=== PATIENT | male | born 1960 | race Two or more races ===

== ENCOUNTER → 2021-10-16 09:33 | Outpatient (BNVA) | payer MEDICARE, MEDICAID, SELFPAY | PROVIDERS: PCP Internal Medicine; Visit Provider Nurse Practitioner Family | DX: G47.00 Insomnia, unspecified (principal); F41.9 Anxiety disorder, unspecified; F32.A Depression, unspecified; H02.402 Unspecified ptosis of left eyelid | CPT/HCPCS: 99212 ==

== ENCOUNTER 2024-08-05 10:46 | Outpatient (AMB) | payer MEDICARE, SELFPAY ==
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
[2024-08-05 10:55] VITALS: BP 150/96; PULSE 72; O2SAT 98; BMI 37.1
--- OUTSIDE RECORDS SUMMARY | 2024-08-05 12:35 | XMS_ITS ---
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 I had a long discussion with him and his about the findings from his most recent imaging and the pathology from his biopsy as discussed in the HPI. I also talked about oligometastatic disease and the diagnosis, and treatment of this. Basically, there is a survival advantage to resection of oligometastatic disease from colon cancer to the lung. As such, I discussed with them a navigational bronchoscopy with dye marking, da Prem left apical wedge resection and lymph node dissection for therapeutic purposes. The risks, benefits, and alternatives of this were discussed in detail which she seemed understand and agreed to proceed. All questions were answered. He will need pulmonary function testing prior to operation. 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 Splenic cyst 05/14/2022 Overview (03/24/2024): Pt with possible splenic cyst on 05/09/22. Incidental finding. Controlled type 2 diabetes m ellitus without complication, without long-term current use of insulin 12/09/2020 Chronic pain of both knees 08/24/2020 Constipation 08/24/2020 Housing situation unstable 06/15/2020 Anxiety 02/16/2020 Panic 02/16/2020 Pulmonary nodules 02/16/2020 Overview (03/24/2024): Status post wedge resection, 03/30/2020, follows with Dr. Austin Last Assessment & Plan: Patient has 2 subcentimeter pulmonary nodules in the left upper lobe. There were negative on the PET scan. Continue following in the lung cancer screening clinic. Insomnia 04/13/2019 Gastroesophageal reflux disease without esophagi tis 10/13/2018 Stage 3 severe COPD by GOLD classification 10/13 Overview (03/24/2024): Last Assessment & Plan: Mr. Mendoza has stage II COPD as per his latest pulmonary function test back in 2019 with an FEV1 53% predicted. He has been stable using triple therapy with Trelegy. I will continue with this medication. He ran out from [employer] a couple of days ago and he has wheezing today. I also will renew his nebulizer medications and supplies. I advised him to quit smoking but right now he says that he is to stress and is very difficult. He knows about the risks of continued smoking. I will do a new pulmonary function testing his next appointment in 6 months. Cardiomyopathy 07/28/2018 Chronic low back pain 03/07/2017 Depression 03/02/2016 Obesity 03/02/2016 Hyperlipidemia 07/11/2012 Psoriasis 07/11/2012 Overview (03/24/2024): Been getting treated for 5 years with creams and shampoos, follows with [facility] Current Oncology Plans No current plan information found. Past Plans No past plan information found. Radiation Treatments * Treatment Site Started On Last Treated On Elapsed Days Fractions Complete Last Fraction Dose Given/Prescribed Total Dose Given/Prescribed Technique MICHAEL SBRT 05/11/20 24 05/13/20 24 2 3 of 3 1,800 cGy / 1,800 cGy 5,400 cGy / 5,400 cGy SBRT VMAT
--- OUTSIDE RECORDS SUMMARY | 2024-08-05 12:35 | XMS_ITS | Encounter Summary ---
Author Organization [facility] Address [address] [place] [address] Care Team Providers Care Ripening Room Hand Name Role Phone Diana Oseguera MD Primary Care Provider [phone] Encounter Details Date Type Department Care Team (Late st Contact Info) Description 03/24/2024 10:34 AM EDT Hospital Encounter TH HISTORIC ENCOUNTERS EASTERN CONVERSION ONLY Yvonne Bautista, DO [address] [place] [address] Social History Tobacco Use Types Packs/Day Years Used Date Smoking Tobacco: Every Day Cigarettes Smokeless Tobacco: Never Comments:1 PPD Alcohol Use Standard Drinks/Week Comments No 0 (1 standard drink = 0.6 oz pur e alcohol) Sex and Gender Information Value Date Recorded Sex Assigned at Male 07/10/2024 1:20 PM EST Legal Sex Male 4:35 AM EST Gender Identity Male 07/10/2024 1:20 PM EST Sexual Orientation Straight 07/10/2024 1: 20 PM EST documented as of this encounter Last Filed [...] 12:25 PM Encounter Date: 03/24/2024 Status: Addendum Underwriting Account Representative: Yvonne Bautista DO (Physician) Related Notes: Original [...] to 1.5 packs per day 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 Sign: Yvonne Bautista DO Hematology/Oncology [facility] [phone] CC: Dr Beau Oseguera, MD Diana Encounter involves review of pathology, discussion with outside physician, documentation in medicalrecord, ordering additional testing, care of patient in longitudinal fashion, documented in this encounter Plan of Treatment Upcoming Encounters Date Type Department Care Team (Late st Contact Info) Description 08/14/2024 1:20 PM EST Office Visit Gastroenterology - [facility] [address] [facility] [address] [place] [phone] aRmu Carson PA [address] [facility] [address] [place] [address] 09/23/2024 9:30 AM EDT Appointment [facility] CT Scan [address] [place] [phone] 09/30/2024 1:00 PM EDT Appointment [facility] Radiation Oncology [address] [facility] 2nd [place] [phone] Neena Irwin NP [address] [place] [address] [address] [place]ije[place] [phone] documented as of this encounter Procedures Procedure [...] Diagnoses Not on filedocumented in this encounter Care Teams Ripening Room Hand Relationship Specialty Start Date End Date Diana Oseguera MD [address] [place] [address] PCP - General Internal Medicine 12/27/14 documented as of this encounter
--- OUTSIDE RECORDS SUMMARY | 2024-08-05 12:35 | XMS_ITS | Encounter Summary ---
Author Organization [facility] Address [address] [place] [address] Care Team Providers Care Mold Preparer Name Role Phone Diana Oseguera MD Primary Care Provider [phone] Encounter Details Date Type Department Care Team Description 01/24/2024 Social Work [facility] Oncology Services [address] [place] [address] Casimiro Mack, [facility] Social History Tobacco Use Types Packs/Day Years Used Date Smoking Tobacco: Former Smokeless Tobacco: Never Alcohol Use Standard Drinks/Week Comments No 0 (1 standard drink = 0.6 oz pur e alcohol) Sex and Gender Information Value Date Recorded Sex Assigned at Male 08/27/2022 2:15 PM EST Gender Identity Not on file Sexual Orientation Not on file Job Start Date Occupation Industry Not on file Not on file Not on file documented as of this encounter Plan of Treatment Not on file documented as of this encounter Visit Diagnoses Not on filedocumented in this encounter Care Teams Mold Preparer Relationship Specialty Start Date End Date Diana Oseguera MD PCP - General Internal Medicine 06/08/16 documented as of this encounter
--- OUTSIDE RECORDS SUMMARY | 2024-08-05 12:35 | XMS_ITS | Encounter Summary ---
Author Organization [facility] Address [address] [place] [address] Care Team Providers Care Assistant Associate Professor Name Role Phone Diana Oseguera MD Primary Care Provider Encounter Details Date Type Department Care Team Description 08/27/2022 Social Work [facility] Oncology Services [address] [place] [address] Casimiro Mack, [facility] Social History Tobacco Use Types Packs/Day Years [...] file Not on file Not on file COVID-19 Exposure Response Date Recorded In the last 10 days, have yo u been in contact with someone who was confirmed or suspected to have Coronavirus/COVID-19? No / Unsure 08/29/2022 11:45 AM EST documented as of this encounter Plan of Treatment Not on file documented as of this encounter Visit Diagnoses Not on filedocumented in this encounter Care Teams Assistant Associate Professor Relationship Specialty Start Date End Date Diana Oseguera MD PCP - General Internal Medicine 06/08/16 documented as of this encounter
--- OUTSIDE RECORDS SUMMARY | 2024-08-05 12:35 | XMS_ITS | Encounter Summary ---
Author Organization [facility] Address [address] [place] [address] Care Team Providers Care Technology Professional Name Role Phone Diana Oseguera MD Primary Care Provider [phone] Encounter Details Date Type Department Care Team Description 08/30/2022 Social Work [facility] Oncology Services [address] [place] [address] Casimiro Mack, [facility] Social History Tobacco Use Types Packs/Day Years [...] on filedocumented in this encounter Care Teams Technology Professional Relationship Specialty Start Date End Date Diana Oseguera MD PCP - General Internal Medicine 06/08/16 documented as of this encounter
--- OUTSIDE RECORDS SUMMARY | 2024-08-05 12:35 | XMS_ITS ---
Author Organization [facility] Address [address] [place] [address] Care Team Providers Care Wine Sales Representative Name Role Phone Diana Oseguera MD Primary Care Provider [phone] Active Problems Problem Noted Date Diagnosed Date Rectosigmoid cancer 08/25/2022 Current Oncology Plans No current plan information found. Past Plans ONCOLOGY TREATMENT Plan Name Start Date Discontinue Date Treatment Medications Discontinue Reason Plan Provider Cycles SFC BCN OP FOLFOX 6 (MODIFIED) - OXALIPLATIN + LEUCOVORIN + FLUOROURACIL (5 HRS) 3 08/29/2023 albuterol (PROVENTIL)dexamethaso ne (DECADRON)dextrose 5 %diphenhydrAMINE (BENADRYL)EPINEPHrinef amotidine (PF) (PEPCID)fluorouracil (5 FU) 46 Hr Chemo infusion- Home Usefluorouracil (ADRUCIL)hydrocortison e (SOLU-CORTEF) IVleucovorin (WELLCOVORIN) infusionmeperidine (DEMEROL) 25 MG/MLoxaliplatin (ELOXATIN) chemo infusionpalonosetron (ALOXI)prochlorperazin e (COMPAZINE)Saline Flush 0.9 %sodium chloride (NS) 0.9 %sodium chloride 0.9% bolus (NS) Therapy Complete Yvonne Bautista N, DO 10 of 12 cycles planned Radiation Treatments * No radiation treatments are documented for this patient in [facility]. Treatments may have been administered in another system.
--- OUTSIDE RECORDS SUMMARY | 2024-08-05 12:35 | XMS_ITS | Encounter Summary ---
Author Organization [facility] Address [address] [place] [address] Care Team Providers Care Pipe Fitter Gas Pipe Name Role Phone Diana Oseguera MD Primary Care Provider Encounter Details Date Type Department Care Team (Late st Contact Info) Description 04/10/2024 Hospital Encounter TH [...] PM EST Office Visit Gastroenterology - [address] [place] [phone] Ramu Carson PA [address] [place] [address] 09/23/2024 9:30 AM EDT Appointment [facility] CT Scan [address] [place] [phone] 09/30/2024 1:00 PM EDT Appointment [facility] Radiation Oncology [address] [phone] Neena Irwin NP [address] [place] [address] [place] [phone] documented as of this encounter Visit Diagnoses Not on filedocumented in this encounter Care Teams Pipe Fitter Gas Pipe Relationship Specialty Start Date End Date Diana Oseguera MD [address] [place] [address] PCP - General Internal Medicine 12/27/14 documented as of this encounter
--- OUTSIDE RECORDS SUMMARY | 2024-08-05 12:35 | XMS_ITS | Encounter Summary ---
Author Organization [facility] Address [address] [place] [address] Care Team Providers Care Av Specialist Name Role Phone Diana Oseguera MD Primary Care Provider [phone] Encounter Details Date Type Department Care Team Description 04/10/2024 Social Work [facility] Oncology Services [address] [place] [address] Casimiro Mack, [facility] Social History Tobacco Use Types Packs/Day Years [...] on filedocumented in this encounter Care Teams Av Specialist Relationship Specialty Start Date End Date Diana Oseguera MD PCP - General Internal Medicine 06/08/16 documented as of this encounter
--- OUTSIDE RECORDS SUMMARY | 2024-08-05 12:35 | XMS_ITS | Encounter Summary ---
Author Organization [facility] Address [address] [place] [address] Care Team Providers Care Cottage Master Name Role Phone Diana Oseguera MD Primary Care Provider [phone] Encounter Details Date Type Department Care Team Description 02/13/2023 Social Work [facility] Oncology Services [address] [place] [address] Casimiro Mack, [facility] Social History Tobacco Use Types Packs/Day Years [...] suspected to have Coronavirus/COVID-19? No / Unsure 02/12/2023 9:33 AM EDT documented as of this encounter Plan of Treatment Not on file documented as of this encounter Visit Diagnoses Not on filedocumented in this encounter Care Teams Cottage Master Relationship Specialty Start Date End Date Diana Oseguera MD PCP - General Internal Medicine 06/08/16 documented as of this encounter
--- OUTSIDE RECORDS SUMMARY | 2024-08-05 12:35 | XMS_ITS | Encounter Summary ---
Author Organization [facility] Address [address] [place] [address] Care Team Providers Care Shoe Lacer Name Role Phone Diana Oseguera MD Primary Care Provider [phone] Encounter Details Date Type Department Care Team (Late Contact Info) Description 03/24/2024 11:00 AM EDT Hospital Encounter TH HISTORIC ENCOUNTERS EASTERN CONVERSION ONLY Yvonne Bautista, DO [address] [place] [address] Social History Tobacco Use Types Packs/Day Years [...] PM EST documented as of this encounter Plan of Treatment Upcoming Encounters Date Type Department Care Team (Late st Contact Info) Description 08/14/2024 1:20 PM EST Office Visit Gastroenterology - [address] [facility] [address] [place] [phone] Ramu Carson PA [address] [facility] [address] [place] [address] 09/23/2024 9:30 AM EDT Appointment [facility] CT Scan [address] [place] [phone] 09/30/2024 1:00 PM EDT Appointment [facility] Radiation Oncology [address] [place] [phone] Neena Irwin NP [address] [place] [address] [place] [phone] documented as of this encounter Visit Diagnoses Not on filedocumented in this encounter Care Teams Shoe Lacer Relationship Specialty Start Date End Date Diana Oseguera MD [address] [place] [address] PCP - General Internal Medicine 12/27/14 documented as of this encounter
--- OUTSIDE RECORDS SUMMARY | 2024-08-05 12:35 | XMS_ITS | Encounter Summary ---
Author Organization [facility] Address [address] [place] [address] Care Team Providers Care Director Global Strategic Publisher Sales Name Role Phone Diana Oseguera MD Primary Care Provider [phone] Encounter Details Date Type Department Care Team Description 03/28/2023 Social Work [facility] Oncology Services [address] [place] [address] Casimiro Mack, [facility] Social History Tobacco Use Types Packs/Day Years [...] suspected to have Coronavirus/COVID-19? No / Unsure 03/05/2023 8:36 AM EDT documented as of this encounter Plan of Treatment Not on file documented as of this encounter Visit Diagnoses Not on filedocumented in this encounter Care Teams Director Global Strategic Publisher Sales Relationship Specialty Start Date End Date Diana Oseguera MD PCP - General Internal Medicine 06/08/16 documented as of this encounter
--- OUTSIDE RECORDS SUMMARY | 2024-08-05 12:35 | XMS_ITS | Clinical Summary ---
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 Active fluticasone-umec lidinium-vilante rol (Trelegy Ellipta) 100-62.5-25 mcg inhaler Inhale 1 Puff into the lungs daily for 90 days. 4 Active ipratropium-albu teroL (DUONEB) 0.5-2.5 mg/3 mL nebulizer solution Inhale 3 mL into the lungs 4 times daily as needed for Other (dyspnea). 4 025 Active betamethasone dipropionate (DIPROSONE) 0.05 % ointment Apply 0.05 Applications topically if needed for rash. 4 Active docusate sodium (COLACE) 100 mg capsule Take 1 capsule (100 mg total) by mouth 1 (one) time each day if needed. 4 Active DULoxetine (CYMBALTA) [address] capsule Take 1 capsule (20 mg total) by mouth 1 (one) time each day. for 30 days 4 Active hydrocortisone 2.5 % cream Apply 1 Application topically if needed for rash. 4 Active loperamide (IMODIUM) 2 mg capsule Take 1 capsule (2 mg total) by mouth every 6 hours. 4 Active nicotine (NICODERM CQ) 21 mg/[address] 1 patch on the skin 1 (one) time each day at the same time. Active sildenafiL (VIAGRA) 100 mg tablet Take 1 tablet (100 mg total) by mouth if needed for erectile dysfunction. 4 Active albuterol HFA (PROAIR HFA ; PROVENTIL HFA ; VENTOLIN HFA) 90 mcg/actuation inhaler Inhale 2 puffs by mouth every 6 hours as needed. Active amitriptyline (ELAVIL) 150 mg tablet Take 1 tablet (150 mg total) by mouth at bedtime. Active simethicone (MYLICON) 80 mg chewable tablet Chew 1 tablet (80 mg total). 4 Active pregabalin (LYRICA) 50 mg capsule Take 1 capsule (50 mg total) by mouth. 4 Active ipratropium-albu teroL (DUONEB) 0.5-2.5 mg/3 mL nebulizer solution Take 3 mL by nebulization every 6 (six) hours. 360 mL 11 4 Active albuterol 2.5 mg /3 mL (0.083 %) nebulizer solutionIndicati ons:Chronic obstructive pulmonary disease, unspecified COPD type (CMS/HCC),COPD exacerbation (CMS/HCC) Take 3 mL (2.5 mg total) by nebulization every 6 (six) hours if needed for wheezing. 360 mL 11 4 025 Active Hospital, Clinic, or Other Facility Administered Medication Ordered Dose Route Frequency Start Date End Date Status predniSONE (DELTASONE) tablet 10 mgIndications:Chronic obstructive pulmonary disease, unspecified COPD type (CMS/HCC) 10 mg oral Daily 06/22/2024 Active Active Problems Problem Noted Date Diagnosed Date [...] Staging:Pathologic: pT2, pN1, cM1 - Signed by Roberto Degroot MD on 04/28/2024 Liver lesion 05/14/2022 [...] with this medication. He ran out from [employer] a couple of days ago and he [...] years with creams and shampoos, follows with [facility] Encounters Date Type Department Care Team Description 07/10/2024 12:29 PM EST - 07/10/2024 7:05 PM EST Emergency [facility] Emergency [address] [place] [address] Rectal bleeding (Primary Dx) Discharge Disposition: Home or Self Care 07/10/2024 Telephone [facility] Hematology Oncology [address] [place] [phone] Yvonne Bautista, DO Rectal Bleeding 06/25/2024 10:55 AM EST - 06/25/2024 11:59 PM EST Hospital Encounter [facility] Radiation Oncology [address] [facility] [address] [place] [phone] Neena Irwin NP 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) Discharge Disposition: Home or Self Care 06/22/2024 9:30 AM EST Office Visit Pulmonolgy - [place] [address] [facility] [address] [place] [phone] Marisol Rock MD Chronic obstructive pulmonary disease, unspecified COPD type (CMS/HCC) (Primary Dx); COPD exacerbation (CMS/HCC); Colon cancer metastasized to lung (CMS/HCC); [facility] [address] [phone] Marisol Rock MD Medication Problem; call back 06/19/2024 Telephone [facility] Radiation Oncology [address] [phone] Carla Eubanks, LAURENCE Cough 06/18/2024 1:30 PM EST Lab Draw Station - [address] [phone] Dyspnea, unspecified type 06/18/2024 12:52 PM EST - 06/18/2024 11:59 PM EST Hospital Encounter [facility] Xray [address] [place] [phone] Dyspnea, unspecified type Discharge Disposition: Home or Self Care [facility] [address] [phone] Marisol Rock MD 05/13/2024 11:15 AM EST - 05/13/2024 11:59 PM EST Hospital Encounter [facility] Radiation Oncology [address] [place] [phone] Roberto Degroot MD Rectosigmoid cancer (CMS/HCC) (Primary Dx); 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 ([facility]/HCC) Discharge Disposition: Home or Self Care 05/13/2024 10:51 AM EST - 05/13/2024 11:59 PM EST Hospital Encounter [facility] Radiation Oncology [address] [place] [phone] Roberto Degroot MD Discharge Disposition: Home or Self Care 05/12/2024 10:48 AM EST - 05/12/2024 11:59 PM EST Hospital Encounter [facility] Radiation Oncology [address] [place] [phone] Bettye Winn MD Discharge Disposition: Home or Self Care 05/11/2024 11:30 AM EST - 05/11/2024 11:59 PM EST Hospital Encounter [facility] Radiation Oncology [address] [place] [phone] Roberto Degroot MD 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); 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) Discharge Disposition: Home or Self Care 05/11/2024 11:15 AM EST - 05/11/2024 11:59 PM EST Hospital Encounter [facility] Radiation Oncology [address] [place] [phone] Roberto Degroot MD 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) Discharge Disposition: Home or Self Care 05/11/2024 10:55 AM EST - 05/11/2024 11:59 PM EST Hospital Encounter [facility] Radiation Oncology [address] [place] [phone] Roberto Degroot MD Rectosigmoid cancer (CMS/HCC) (Primary Dx); 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); 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) Discharge Disposition: Home or Self Care 05/05/2024 10:15 AM EST Office Visit [facility] Hematology Oncology [address] [place] [phone] Yvonne Bautista DO Rectosigmoid cancer (CMS/HCC) (Primary Dx); Chemotherapy-induced neuropathy (CMS/HCC); Tobacco use from Last 3 Months Immunizations Name Administration Dates Next Due Influenza trivalent, with pr eservative (Fluzone; Afluria) 6mo and older 04/12/2011,03/25/2009 PPD Test 03/13/2013 Pfizer SARS-CoV-2 COVID-19, mRNA, LNP-S, preservative free 09/15/2020 Pneumococcal polysaccharide 23 valent (Pneumovax 23) 2yo and older 08/18/2012 Tdap Tetanus diptheria acell ular pertussis (Boostrix; Adacel) 7yo and older 04/12/2011 Surgical History Surgery Date Site/Laterality Comments APPENDECTOMY PROCEDURE: HISTORICAL APPENDECTOMY CIRCUMCISION, NON- PROCEDURE: CIRCUMCISION, NOT OTHER SURGICAL HISTORY PROCEDURE: MN ARTHRD ANT INTERBODY MIN DSC LUMBAR; COMMENT: L4-5 OTHER SURGICAL HISTORY 08/22/2023 PROCEDURE: HISTORY OTHER; COMMENT: closure of loop ileostomy Medical History Medical History Date Comments Psoriasis 07/11/2012 DX:Psoriasis Previous back surgery 07/11/2012 DX:Previou s back surgery COPD (chronic obstructive pu lmonary disease) (CMS/HCC) 07/11/2012 DX:COPD (chronic obstructive pulmonary disease) ([facility]) Historical Medical DX 07/11/2012 DX:Hyperli pidemia LDL goal < 130 GERD (gastroesophageal reflux disease) 4 DX:GERD (gastroesophageal reflux disease) Obesity DX:Obesity Ex-smoker DX:Ex-smoker Anxiety DX:Anxiety Depression DX:Depression Insomnia DX:Insomnia Abnormal screening CT of chest D X:Abnormal screening CT of chest Rectal bleeding DX:Rectal bleedi ng Abdominal pain DX:Abdominal georgiana n Liver lesion DX:Liver lesion Tobacco use DX:Tobacco use Cancer of rectosigmoid (colo n) (CMS/HCC) 07/20/2022 DX:Cancer of rectosigmoid (c olon) ([facility]) Splenic cyst 05/14/2022 DX:Splenic cyst; COMMENT: Pt with possible splenic cyst on 05/09/22. Incidental finding. Constipation 08/24/2020 DX:Constipation Gastroesophageal reflux dise ase without esophagitis 10/13/2018 DX:Gastroesophageal reflux d isease without esophagitis Controlled type 2 diabetes m ellitus without complication, without long-term current use of insulin (CMS/HCC) 12/09/2020 DX:Controlled type 2 diabete s mellitus without complication, without long-term current use of insulin (HCC) Cardiomyopathy (CMS/HCC) 07/28/2018 DX:Card iomyopathy (HCC) Secondary cancer of lung (CMS/HCC) 03/27/2024 DX:Secondary cancer of lung (HCC) Chronic left-sided low back pain without sciatica 03/07/2017 DX:Chronic left-sided low ba ck pain without sciatica Chronic pain of both knees 08/24/2020 DX:Ch ronic pain of both knees Stage 3 severe COPD by GOLD classification (CMS/HCC) 10/13/2018 DX:Stage 3 severe COPD by GO LD classification ([facility]) Family History Medical History Relation Name Comments Heart attack Brother 1 Stroke Brother 2 COPD Mother Relation Name Status Comments Brother 1 Brother 2 Mother Social History Tobacco Use Types Packs/Day Years Used Date Smoking Tobacco: Every Day Cigarettes Smokeless Tobacco: Never Tobacco Cessation:Ready to Q uit: Not Asked; Counseling Given: Not Answered Comments:1 PPD Alcohol Use Standard Drinks/Week Comments No 0 (1 standard drink = 0.6 oz pur e alcohol) Sex and Gender Information Value Date Recorded Sex Assigned at Male 07/10/2024 1:20 PM EST Legal Sex Male 4:35 AM EST Gender Identity Male 07/10/2024 1:20 PM EST Sexual Orientation Straight 07/10/2024 1: 20 PM EST Obstetrics History Last Filed Vital Signs Vital Sign Reading Time Taken Comments Blood Pressure 123/75 07/10/2024 6:25 PM EST Pulse 65 07/10/2024 6:25 PM EST Temperature 36.7 ??C (98.1 ??F) 07/10/2024 6:25 PM ES T Respiratory Rate 16 07/10/2024 6:25 PM EST Oxygen Saturation 97% 07/10/2024 6:25 PM EST Inhaled Oxygen Concentration - - Weight 109 kg (240 lb) 07/10/2024 11:53 AM EST Height 175.3 cm (5' 9 ) 07/10/2024 11:53 AM EST Body Mass Index 35.44 07/10/2024 11:53 AM EST Plan of Treatment Upcoming Encounters Date Type Department Care Team (Late st Contact Info) Description 08/14/2024 1:20 PM EST Office Visit Gastroenterology - [address] [facility] [address] [place] [phone] Ramu Carson PA [address] [place] [address] [place] [phone] 09/23/2024 9:30 AM EDT Appointment [facility] CT Scan [address] [place] [phone] 09/30/2024 1:00 PM EDT Appointment [facility] Radiation Oncology [address] [place] [phone] Neena Irwin NP [address] [place] [address] [address] [place] [phone] Health Maintenance Due Date Last Done Comments Diabetes: Annual Retina Eye Exam 02/08/1970 Hepatitis A Vaccines (1 of 2 - Risk 2-dose series) 02/08/1979 Zoster Vaccines (1 of 2) 02/08/1979 DTaP,Tdap,and Td Vaccines (2 - Td or Tdap) 05/10/2011 04/12/2011 Pneumococcal Vaccine: 50+ Years (2 of 2 - PCV) 08/18/2013 08/18/2012 Pneumococcal Vaccine: Pediatrics (0 to 5 Years) and At-Risk Patients (6 to 64 Years) (2 of 2 - PCV) 08/18/2013 08/18/2012 RSV Immunization Patients 60 + Years Old (1 - Risk 60-74 years 1-dose series) 2020 Colorectal Cancer Screening: Stool Based Tests (FOBT/FIT) 06/01/2022 Depression Screening 06/01/2022 HIV Screening 06/01/2022 Medicare Annual Wellness Visit 06/01/2022 Social Influencers of Health Screening 06/01/2022 Lung Cancer Screening (Low Dose CT) 08/05/2023 08/05/2022, 07/24/2021 COVID-19 Vaccine ( - 2023-2 5 season) 2024 11/15/2020, 10/25/2020, 09/15/2020 Influenza Vaccine (#1) 2024 1, 03/25/2009 Diabetes: Blood Sugar Contro l Test (HGBA1C) 03/07/2024 09/05/2023 Diabetes: Annual Urine Albumin-Creatinine Ratio (uACR) 09/04/2024 09/05/2023 Diabetes: Annual Foot Exam 10/06/2024 10/07/2023 Diabetes: Annual GFR (Glomerular Filtration Rate) 07/10/2025 07/10/2024, 09/05/2023 Cholesterol Screening (Lipid Panel) 09/04/2028 09/05/2023 Hepatitis C Screening Completed 08/04/2014 HIB Vaccines Aged Out No longer eligi ble based on patient's age to complete this topic HPV Vaccines Aged Out No longer eligi ble based on patient's age to complete this topic Hepatitis B Vaccines Aged Out No long er eligible based on patient's age to complete this topic IPV Vaccines Aged Out No longer eligi ble based on patient's age to complete this topic MMR Vaccines Aged Out No longer eligi ble based on patient's age to complete this topic Meningococcal ACWY Vaccine Aged Out N o longer eligible based on patient's age to complete this topic Meningococcal B Vacine Aged Out No lo nger eligible based on patient's age to complete this topic RSV Immunization Patients Under 20 months Aged Out No longer eligible b ased on patient's age to complete this topic Varicella Vaccines Aged Out No longer eligible based on patient's age to complete this topic Procedures Procedure Name Priority Date/Time Associated Diagnosis Comments CT ANGIO ABDOMEN PELVIS WO AND/OR W CONTRAST STAT 07/10/2024 4:13 PM EST Rectal bleeding PROTHROMBIN TIME WITH INR STAT 07/10/2024 2:28 PM EST CBC WITH AUTO DIFFERENTIAL STAT 07/10/2024 1:18 PM EST TYPE AND SCREEN STAT 07/10/2024 1:18 PM EST COMPREHENSIVE METABOLIC PANEL STAT 07/10/2024 1:18 PM EST CBC AND DIFFERENTIAL STAT 07/10/2024 1:18 PM EST CBC WITH AUTO DIFFERENTIAL Routine 06/18/2024 1:26 PM EST Dyspnea, unspecified type CBC AND DIFFERENTIAL Routine 06/18/2024 1:26 PM EST Dyspnea, unspecified type XR CHEST 2 VIEWS Routine 06/18/2024 1:12 PM EST Dyspnea, unspecified type RAD ONC MSQ TREATMENT SUMMARY Routine 05/13/2024 11:16 AM EST RAD ONC MSQ TREATMENT SUMMARY Routine 05/12/2024 11:28 AM EST EXTERNAL CLINICAL LAB 05/05/2024 DIABETES FOOT EXAM Routine 10/07/2023 URINE ALBUMIN CREATININE RATIO Routine 09/05/2023 HEMOGLOBIN A1C Routine 09/05/2023 LIPID PANEL Routine 09/05/2023 CT LUNG SCREENING LOW DOSE Routine 08/05/2022 12:47 PM EST Personal history of nicotine dependence HEPATITIS C SCREENING Routine 08/04/2014 from Last 3 Months or Most Recently Relevant to Health Maintenance Results * CT Angio Abdomen Pelvis wo and/or w Contrast (07/10/2024 4:13 PM EST) Anatomical Region Laterality Modality Body Computed Tomogra phy 07/10/2024 4:32 PM EST Impressions 07/10/2024 4:42 PM EST No active arterial bleeding. ??No acute findings in the abdomen/pelvis. -------- FINAL REPORT -------- Dictated By: KJ TENA Dictated Date: 07/10/2024 16:32 ET Assigned Physician: KJ TENA Reviewed and Electronically Signed By: KJ TENA Signed Date: 07/10/2024 16:42 ET Workstation ID: [id number] Transcribed By: Self Edit Transcribed Date: 07/10/2024 16:32 ET Narrative 07/10/2024 4:42 PM EST PROCEDURE: CT abdomen/pelvis INDICATION: Bleeding, pain TECHNIQUE: Abdomen/pelvis CTA with intravenous administration of 100cc ISOVUE- 370. Multi planar reformats were created and interpreted. The examination was performed utilizing dose reduction techniques.3-D or MIP images were produced with postprocessing on an independent computer workstation. ??Total DLP 5888 COMPARISON: ??02/19/2024 FINDINGS: CTA: No active arterial extravasation. Visualized portions of the thoracic aorta are normal. ??Celiac artery, SMA, renal arteries, and SHIRA are patent. ??SHIRA is small. No abdominal aortic aneurysm. Iliac and femoral arteries are normal with visualized. Other: Bibasilar atelectasis. Hepatic steatosis. ??No focal liver lesions. ??Gallbladder and biliary tree are normal. Pancreas and adrenal glands are normal. ??No splenomegaly. ??Small splenic cyst is unchanged. Kidneys are normal. ??Portal vein is patent. ??Abdominal aorta is normal in size. ??No retroperitoneal or mesenteric lymphadenopathy. Prostate and bladder are within normal limits noting bladder distention. Prior low anterior resection. ??No bowel obstruction or wall thickening. ??Appendix is not visualized. ??No evidence of appendicitis. ??Small bowel anastomosis noted in the right abdomen. No ascites, fluid collection, or free intraperitoneal air. Small fat-containing inguinal hernias bilaterally. ??Lower lumbar fusion. ??No suspicious lytic or blastic lesion. ??No acute fracture. Procedure Note Kj Tena MD - 07/10/2024 PROCEDURE: CT abdomen/pelvis INDICATION: Bleeding, pain TECHNIQUE: Abdomen/pelvis CTA with intravenous administration of 100ccISOVUE- 370. Multi planar reformats were created and interpreted. Theexamination was performed utilizing dose reduction techniques.3-D or MIPimages were produced with postprocessing on an independent computerworkstation. Total DLP 5888 COMPARISON: 02/19/2024 FINDINGS: CTA: No active arterial extravasation. Visualized portions of the thoracic aorta are normal. Celiac artery, SMA,renal arteries, and SHIRA are patent. SHIRA is small. No abdominal aortic aneurysm. Iliac and femoral arteries are normal with visualized. Other: Bibasilar atelectasis. Hepatic steatosis. No focal liver lesions. Gallbladder and biliary treeare normal. Pancreas and adrenal glands are normal. No splenomegaly. Small spleniccyst is unchanged. Kidneys are normal. Portal vein is patent. Abdominal aorta is normal insize. No retroperitoneal or mesenteric lymphadenopathy. Prostate and bladder are within normal limits noting bladder distention. Prior low anterior resection. No bowel obstruction or wall thickening.Appendix is not visualized. No evidence of appendicitis. Small bowelanastomosis noted in the right abdomen. No ascites, fluid collection, or free intraperitoneal air. Small fat-containing inguinal hernias bilaterally. Lower lumbar fusion.No suspicious lytic or blastic lesion. No acute fracture. IMPRESSION: No active arterial bleeding. No acute findings in the abdomen/pelvis. -------- FINAL REPORT -------- Dictated By: KJ TENA Dictated Date: 07/10/2024 16:32 ET Assigned Physician: KJ TENA Reviewed and Electronically Signed By: KJ TENA Signed Date: 07/10/2024 16:42 ET Workstation ID: [id number] Transcribed By: Self Edit Transcribed Date: 07/10/2024 16:32 ET [facility] IMG CT PROCEDURES Final Result * Prothrombin time with INR (07/10/2024 2:28 PM EST) Pathologist [facility] Protime 12.0 10.6 - 13.9 sec LAB COAGULATION METHOD 07/10/2024 3:17 PM EST [facility] INR 1.0 LAB COAGULATION METHOD 07/10/2024 3:17 PM EST [facility] Blood Venous blood specimen / Unknown Venipuncture / Unknown 07/10/2024 2:28 PM EST 07/10/2024 2:53 PM EST [facility] LAB BLOOD ORDERABLES Final Resul t [facility] [address] [place] [address], [place] [phone] * (ABNORMAL) CBC auto differential (07/10/2024 1:18 PM EST) Only the most recent of2 resultswithin the time period is included. WBC 5.4 4.8 - 10.8 K/mcL LAB HEMETOLOGY METHOD 07/10/2024 2:35 PM EST [facility] RBC 4.80 4.50 - 5.50 M/mcL LAB HEMETOLOGY METHOD 07/10/2024 2:35 PM EST [facility] Hemoglobin 14.4 13.5 - 17.5 g/dL LAB HEMETOLOGY METHOD 07/10/2024 2:[address] [facility] Hematocrit 44.3 42.0 - 54.0 % LAB HEMETOLOGY METHOD 07/10/2024 2:[address] [facility] MCV 92.9 79.0 - 98.0 FL LAB HEMETOLOGY METHOD 07/10/2024 2:[address] [facility] MCH 30.2 27.0 - 32.0 pcg LAB HEMETOLOGY METHOD 07/10/2024 2:[address] [facility] MCHC 32.5 32.0 - 37.0 g/dL LAB HEMETOLOGY METHOD 07/10/2024 2:[address] [facility] RDW 13.9 11.0 - 15.0 % LAB HEMETOLOGY METHOD 07/10/2024 2:[address] [facility] Platelets 170 130 - 400 K/mcL LAB HEMETOLOGY METHOD 07/10/2024 2:[address] [facility] MPV 11.6(H) 7.0 - 11.0 FL LAB HEMETOLOGY METHOD 07/10/2024 2:[address] [facility] NRBC 0.0 <1.0 % LAB HEMETOLOGY METHOD 07/10/2024 2:[address] [facility] NRBC Absolute 0.00 <0.10 K/mcL LAB HEMETOLOGY METHOD 07/10/2024 2:[address] [facility] Neutrophils Relative 58.1 % LAB HEMETOLOGY METHOD 07/10/2024 2:[address] [facility] Lymphocytes Relative 27.0 % LAB HEMETOLOGY METHOD 07/10/2024 2:[address] [facility] Monocytes Relative 7.9 % LAB HEMETOLOGY METHOD 07/10/2024 2:[address] [facility] Eosinophils Relative 5.2 % LAB HEMETOLOGY METHOD 07/10/2024 2:35 PM EST [facility] Basophils Relative 1.1 % LAB HEMETOLOGY METHOD 07/10/2024 2:35 PM EST [facility] Immature Granulocytes Relative 0.7 % LAB HEMETOLOGY METHOD 07/10/2024 2:35 PM EST [facility] Neutrophils Absolute 3.14 1.50 - 7.00 K/mcL LAB HEMETOLOGY METHOD 07/10/2024 2:35 PM EST [facility] Lymphocytes Absolute 1.46 1.00 - 5.00 K/mcL LAB HEMETOLOGY METHOD 07/10/2024 2:35 PM EST [facility] Monocytes Absolute 0.43 0.20 - 1.00 K/mcL LAB HEMETOLOGY METHOD 07/10/2024 2:35 PM EST [facility] Eosinophils Absolute 0.28 0.00 - 0.50 K/mcL LAB HEMETOLOGY METHOD 07/10/2024 2:35 PM EST [facility] Basophils Absolute 0.06 0.00 - 0.20 K/mcL LAB HEMETOLOGY METHOD 07/10/2024 2:35 PM EST [facility] Immature Granulocytes Absolute 0.04(H) 0.00 - 0.03 K/mcL LAB HEMETOLOGY METHOD 07/10/2024 2:35 PM EST [facility] Blood Venous blood specimen / Unknown Venipuncture / Unknown 07/10/2024 1:18 PM EST 07/10/2024 2:22 PM EST us Raheem White MD LAB BLOOD ORDERABLES Final Result [facility] [address] [place] [address], * Type and screen (07/10/2024 1:18 PM EST) ABO Group O 07/10/2024 3:50 PM EST [facility] Rh Type Positive 07/10/2024 3:50 PM EST [facility] Antibody Screen Negative 07/10/2024 3:[address] [facility] Blood Venous blood specimen / Unknown Venipuncture / Unknown 07/10/2024 1:18 PM EST 07/10/2024 2:22 PM EST us Raheem White MD LAB BLOOD BANK TEST ORDERAB LES Final Result [facility] [address] [place] [address], * (ABNORMAL) Comprehensive metabolic panel (07/10/2024 1:18 PM EST) Pathologist [facility] Sodium 138 133 - 145 mmol/L LAB CHEMISTRY METHOD 07/10/2024 3:[address] [facility] Potassium 4.1 3.5 - 5.5 mmol/L LAB CHEMISTRY METHOD 07/10/2024 3:[address] [facility] Chloride 107 96 - 110 mmol/L LAB CHEMISTRY METHOD 07/10/2024 3:[address] [facility] CO2 28 21 - 32 mmol/L LAB CHEMISTRY METHOD 07/10/2024 3:[address] [facility] Anion Gap 3 3 - 11 LAB CHEMISTRY METHOD 07/10/2024 3:[address] [facility] Glucose 123(H) 70 - 100 mg/dL LAB CHEMISTRY METHOD 07/10/2024 3:[address] [facility] BUN 20 5 - 25 mg/dL LAB CHEMISTRY METHOD 07/10/2024 3:[address] [facility] Creatinine 1.12 0.70 - 1.30 mg/dL LAB CHEMISTRY METHOD 07/10/2024 3:[address] [facility] eGFR 73 >=60 mL/min/1. 73m2 LAB CHEMISTRY METHOD 07/10/2024 3:[address] [facility] Comment:Calculation based on the??Chronic Kidney Disease Epidemiology Collaboration (CKD-EPI) equation refit??without adjustment for race. BUN/Creatinine Ratio 17.9 LAB CHEMISTRY METHOD 07/10/2024 3:[address] [facility] Calcium 8.9 8.5 - 10.5 mg/dL LAB CHEMISTRY METHOD 07/10/2024 3:[address] [facility] AST (SGOT) 21 10 - 42 unit/L LAB CHEMISTRY METHOD 07/10/2024 3:[address] [facility] ALT (SGPT) 38 10 - 60 unit/L LAB CHEMISTRY METHOD 07/10/2024 3:[address] [facility] Alkaline Phosphatase 104 42 - 121 unit/L LAB CHEMISTRY METHOD 07/10/2024 3:[address] [facility] Total Protein 7.2 6.0 - 8.0 g/dL LAB CHEMISTRY METHOD 07/10/2024 3:[address] [facility] Albumin 3.2 3.2 - 5.0 g/dL LAB CHEMISTRY METHOD 07/10/2024 3:[address] [facility] Total Bilirubin 0.3 0.0 - 1.4 mg/dL LAB CHEMISTRY METHOD 07/10/2024 3:[address] [facility] Blood Venous blood specimen / Unknown Venipuncture / Unknown 07/10/2024 1:18 PM EST 07/10/2024 2:22 PM EST us Raheem White MD LAB BLOOD ORDERABLES Final Result [facility] [address] [place] [address], * XR Chest 2 Views (06/18/2024 1:12 PM EST) Anatomical Region Laterality Modality Body Radiographic Shira ging 06/22/2024 3:28 PM EST Impressions 06/22/2024 3:30 PM EST No acute abnormality -------- FINAL REPORT -------- Dictated By: Shaun Pérez Dictated Date: 06/22/2024 15:28 ET Assigned Physician: Shaun Pérez Reviewed and Electronically Signed By: Shaun Pérez Signed Date: 06/22/2024 15:30 ET Workstation ID: [id number] Transcribed By: Self Edit Transcribed Date: 06/22/2024 15:28 ET Narrative 06/22/2024 3:30 PM EST INDICATION: dyspnea TECHNIQUE: Frontal and lateral view of the chest COMPARISON: 03/16/2024 FINDINGS: Lines and Tubes: None Heart and Mediastinum: Cardiomediastinal silhouette is unremarkable. Lungs and Pleura: No focal consolidation. ??Left upper lobe nodule seen on previous cross-sectional imaging not appreciated on this radiograph. ??No overt pulmonary edema. No pleural effusion. No pneumothorax Bony Structures/soft tissue: No acute abnormality Procedure Note Shaun Pérez MD - 06/22/2024 INDICATION: dyspnea TECHNIQUE: Frontal and lateral view of the chest COMPARISON: 03/16/2024 FINDINGS: Lines and Tubes: None Heart and Mediastinum: Cardiomediastinal silhouette is unremarkable. Lungs and Pleura: No focal consolidation. Left upper lobe nodule seen onprevious cross-sectional imaging not appreciated on this radiograph. Noovert pulmonary edema. No pleural effusion. No pneumothorax Bony Structures/soft tissue: No acute abnormality IMPRESSION: No acute abnormality -------- FINAL REPORT -------- Dictated By: Shaun Pérez Dictated Date: 06/22/2024 15:28 ET Assigned Physician: Shaun Pérez Reviewed and Electronically Signed By: Shaun Pérez Signed Date: 06/22/2024 15:30 ET Workstation ID: [id number] Transcribed By: Self Edit Transcribed Date: 06/22/2024 15:28 ET Marisol Rock MD IMG XR PROCEDURES Final Result * Rad Onc Msq Treatment Summary (05/13/2024 11:16 AM EST) Treatment Site [facility] SBRT MOSAI Q RADIATION ONCOLOGY Course Number 2 MOSAIQ RADIATION ONCOLOGY Prescribed Fractional Dose 1,800 cGray MOSAIQ RADIATION ONCOLOGY Prescribed Total Dose 5,400 cGray MOSAIQ RADIATION ONCOLOGY Actual Fractions Delivered 3 MOSAIQ RADIATION ONCOLOGY Actual Session Delivered Dose 1,800 cGray MOSAIQ RADIATION ONCOLOGY Actual Total Dose 5,400 cGray MOSAIQ RADIATION ONCOLOGY Prescribed Technique SBRT VMAT MOSAIQ RADIATION ONCOLOGY Elapsed Days 2 MOSAIQ RADIATION ONCOLOGY Start Date 05/11/2024 MOSAIQ RADIATION ONCOLOGY Last Date 05/13/2024 MOSAIQ RADIATION ONCOLOGY Prescribed Number of Fractions 3 MOSAIQ RADIATION ONCOLOGY 05/13/2024 11:1 6 AM EST Physician Radiation Oncology RADIATION ONCOLO GY ORDERABLES Final Result Performing Organization Address City/[facility]/ZIP Co de Phone Number MOSAIQ RADIATION ONCOLOGY * Rad Onc Msq Treatment Summary (05/12/2024 11:28 AM EST) Pathologist [facility] Treatment Site [facility] SBRT MOSAI Q RADIATION ONCOLOGY Course Number 2 MOSAIQ RADIATION ONCOLOGY Prescribed Fractional Dose 1,800 cGray MOSAIQ RADIATION ONCOLOGY Prescribed Total Dose 5,400 cGray MOSAIQ RADIATION ONCOLOGY Actual Fractions Delivered 2 MOSAIQ RADIATION ONCOLOGY Actual Session Delivered Dose 1,800 cGray MOSAIQ RADIATION ONCOLOGY Actual Total Dose 3,600 cGray MOSAIQ RADIATION ONCOLOGY Prescribed Technique SBRT VMAT MOSAIQ RADIATION ONCOLOGY Elapsed Days 1 MOSAIQ RADIATION ONCOLOGY Start Date 05/11/2024 MOSAIQ RADIATION ONCOLOGY Last Date 05/12/2024 MOSAIQ RADIATION ONCOLOGY Prescribed Number of Fractions 3 MOSAIQ RADIATION ONCOLOGY 05/12/2024 11:2 8 AM EST Physician Radiation Oncology RADIATION ONCOLO GY ORDERABLES Final Result MOSAIQ RADIATION ONCOLOGY * External clinical lab (05/05/2024) us Provider Onbase MD LAB BLOOD ORDERABLES Final Re sult * Hm Diabetes Foot Exam (10/07/2023) [facility] Diabetes: Annual Foot Exam abstracted Historical Provider MD HEALTH MAINTENANCE Final Result * Urine Albumin Creatinine Ratio (09/05/2023) [facility] Urine Albumin Creatinine Ratio abstracted Historical Provider MD HEALTH MAINTENANCE Final Result * Hemoglobin A1c (09/05/2023) [facility] Hemoglobin A1C 5.5 <=6.5 % Blood Venous blood specimen / Unknown Result [facility] Historical Provider MD LAB BLOOD ORDERABLES Miriam l Result * (ABNORMAL) Lipid panel (09/05/2023) [facility] LDL/HDL Ratio 5(A) 0 - 4 Triglycerides 173(A) 0 - 150 mg/dL Cholesterol 189 0 - 200 mg/dL HDL 37(A) >=40 mg/dL LDL Cholesterol 118(A) 0 - 100 mg/dL Blood Venous blood specimen / Unknown Result [facility] Historical Provider MD LAB BLOOD ORDERABLES Miriam l Result * CT LUNG SCREENING LOW DOSE (08/05/2022 12:47 PM EST) Anatomical Region Laterality Modality Computed Tomogra phy 08/04/2022 7:43 AM EST Narrative 08/05/2022 12:47 PM [facility] Diagnostic Imaging Department [address] [place] [id number] Patient: ??TAMMY MENDOZA ?/Age/Sex: 1960 - 62 - M Unit#: ??[id number] ? Location/Status: ??SPDICATLS/REG CLI ? Mnemonic/Ordering Site: ??CTLUNGLD/SPCT Ordering Physician: ??ALDO HERRING MD CT Lung Screening Low Dose - 08/04/22746 History: ??62 year-old 78 pack-year former smoker, asymptomatic, for lung cancer screening. Quit smoking 3 years ago. Mother had lung carcinoma. Personal history of colon carcinoma. Comparison: 07/24/21 Technique: Helical volumetric imaging of the thorax was performed, using low- dose technique, without IV contrast. DLP: 158.31 mGy/cm ??CTDIvol: 4.83 mGy [email or web address] VCT Iterative reconstruction technique Findings: Lungs and Airways: The trachea and central bronchial tree remain patent. Right upper lobe wedge resection sequelae are again noted. There is patchy centrilob ular emphysema. Thin bandlike opacity is present in the left lower lobe, consistent with subsegmental atelectasis area New solid, noncalcified pulmonary nodules include a 5 mm left upper lobe nodule (image 39 series 4), and a 5 mm left upper lobe nodule (image 33). Both nodules have circumscribed margins. There are rare scattered sub-5 mm nodules elsewhere in both lungs which remain stable from the previous study. Pleura: No pleural or pericardial effusions are identified. Base of neck, mediastinum and heart: Scattered, subcentimeter mediastinal lymph nodes are without definite change. No developing thoracic lymphadenopathy is seen. The heart is normal in size. Soft tissues: The overlying soft tissues are unremarkable. Abdomen: This study was performed without contrast and with lower than standard dose. These factors reduce the sensitivity for detection of small lesions in the upper abdomen. No significant abnormality is seen. Impression: Two 5 mm circumscribed solid left upper lobe nodules, new from 07/24/21. The possibility of metastatic disease related to the patient's recently diagnosed colon malignancy is raised. These nodules are visible on the 07/27/22 PET/CT but show no abnormal metabolic activity, possibly due to their small size. Lung RADS 4X: Probably Suspicious (metastatic disease from known colon malignancy suspected) [id number] [id number] [id number] Dictating Physician: ??HOLLY HERRERA MD Electronically Signed by: ??HOLLY HERRERA MD Dic Date/Time: ??08/05/22 1229 Sign date/Time: ??08/05/22 1247 Procedure Note Holly Herrera MD - 07/26/2023 [facility] Diagnostic Imaging Department [address] [place] [address] Patient: TAMMY MENDOZA D.O.B./Age/Sex: 1960 - 62 - M Unit#: [id number] Location/Status: SPDICAS/REG CLI Mnemonic/Ordering Site: [facility] Ordering Physician: ALDO HERRING MD CT Lung Screening Low Dose - 08/04/22 - 0747 History: 62 year-old 78 pack-year former smoker, asymptomatic, for lungcancer screening. Quit smoking 3 years ago. Mother had lung carcinoma. Personalhistory of colon carcinoma. Comparison: 07/24/21 Technique: Helical volumetric imaging of the thorax was performed, usinglow- dose technique, without IV contrast. DLP: 158.31 mGy/cm CTDIvol: 4.83 mGy [email or web address] VCT Iterative reconstruction technique Findings: Lungs and Airways: The trachea and central bronchial tree remain patent.Right upper lobe wedge resection sequelae are again noted. There is patchycentrilob ular emphysema. Thin bandlike opacity is present in the left lower lobe, consistent with subsegmental atelectasis area New solid, noncalcified pulmonary nodules include a 5 mm left upper lobenodule (image 39 series 4), and a 5 mm left upper lobe nodule (image 33). Bothnodules have circumscribed margins. There are rare scattered sub-5 mm noduleselsewhere in both lungs which remain stable from the previous study. Pleura: No pleural or pericardial effusions are identified. Base of neck, mediastinum and heart: Scattered, subcentimeter mediastinallymph nodes are without definite change. No developing thoracic lymphadenopathyis seen. The heart is normal in size. Soft tissues: The overlying soft tissues are unremarkable. Abdomen: This study was performed without contrast and with lower thanstandard dose. These factors reduce the sensitivity for detection of small lesionsin the upper abdomen. No significant abnormality is seen. Impression: Two 5 mm circumscribed solid left upper lobe nodules, new from 07/24/21.The possibility of metastatic disease related to the patient's recentlydiagnosed colon malignancy is raised. These nodules are visible on the 07/27/22 PET/CTbut show no abnormal metabolic activity, possibly due to their small size. Lung RADS 4X: Probably Suspicious (metastatic disease from known colon malignancy suspected) [id number] [id number] [id number] [id number] Dictating Physician: HOLLY HERRERA MD Electronically Signed by: HOLLY HERRERA MD Dic Date/Time: 08/05/22 1229 Sign date/Time: 08/05/22 1247 Aldo Herring MD IMG CT PROCEDURES Final Result * Hepatitis C Screening (08/04/2014) Hepatitis C Screening abstracted Historical Provider HEALTH MAINTENANCE Final Result from Last 3 Months or Most Recently Relevant to Health Maintenance Insurance [employer] MEDICARE Member Subscriber Plan / Payer (Ef fective 2024-Present) Name:Tammy Mendoza Relation to Subscriber:Self Name:Tammy Mendoza Payer ID:[id number] Group ID:[id number] Type:Not on file Address: [facility] [address] [id number] Care Teams Hot Wound Spring Production Supervisor Relationship Specialty Start Date End Date Diana Oseguera MD [address] [place] [address] PCP - General Internal Medicine 12/27/14
--- OUTSIDE RECORDS SUMMARY | 2024-08-05 12:35 | XMS_ITS | Encounter Summary ---
Author Organization [facility] Address [address] [place] [address] Care Team Providers Care Python Developer Name Role Phone Diana Oseguera MD Primary Care Provider [phone] Encounter Details Date Type Department Care Team Description 04/10/[address] [facility] Oncology Services [address] [place] [address] Casimiro Mack, [facility] Social History Tobacco Use Types [...] on filedocumented in this encounter Care Teams Python Developer Relationship Specialty Start Date End Date Diana Oseguera MD PCP - General Internal Medicine 06/08/16 documented as of this encounter
--- OUTSIDE RECORDS SUMMARY | 2024-08-05 12:35 | XMS_ITS | Encounter Summary ---
Author Organization [facility] Address [address] [place] [address] Care Team Providers Care Case Management Coordinator Name Role Phone Diana Oseguera MD Primary Care Provider [phone] Reason for Visit * Reason Onset Date Comments Rectal Bleeding 07/10/2024 Encounter Details Date Type Department Care Team (Late st Contact Info) Description 07/10/2024 Telephone [facility] Hematology Oncology [address] [place] [phone] Yvonne Bautista, DO [address] [place] [address] Rectal Bleeding Social History Tobacco Use Types Packs/Day Years [...] 1:20 PM EST Sexual Orientation Straight 07/10/2024 1 :20 PM EST documented as of this encounter Progress Notes * Kylee Chiang RN - 07/10/2024 10:51 AM EST S/w patient and reviewed provider response. Pt reports 2 episodes of moderate rectal bleeding and spotting in the past week with pain. Pt agreed to come to [facility] for evaluation. ER Expect line notified. * Yvonne Bautista DO - 07/10/2024 10:34 AM EST Needs to go to ER for evaluation if acute GI bleeding/pain * Carol Washington - 07/10/2024 10:24 AM EST Patient states that he has experienced 2 episodes of blood in stool and severe pain in lower back/abdominal area and he's not sure what's going on or if its being caused my radiation. Please call himat [phone] documented in this encounter Plan of Treatment Upcoming Encounters Date Type Department Care Team (Late st Contact Info) Description 08/14/2024 1:20 PM EST Office Visit Gastroenterology - [address] [facility] [address] [facility] [address] [place] [phone] Ramu Carson PA [address] [facility] [address] [place] [id number] 09/23/2024 9:30 AM EDT Appointment [facility] CT Scan [address] [place] [phone] 09/30/2024 1:00 PM EDT Appointment [facility] Radiation Oncology [address] [facility] 2nd [place] [phone] Neena Irwin NP [address] [place] [phone] documented as of this encounter Visit Diagnoses Not on filedocumented in this encounter Care Teams Case Management Coordinator Relationship Specialty Start Date End Date Diana Oseguera MD [address] [place] [id number] PCP - General Internal Medicine 12/27/14 documented as of this encounter
--- OUTSIDE RECORDS SUMMARY | 2024-08-05 12:35 | XMS_ITS | Encounter Summary ---
Author Organization [facility] Address [address] [place] [address] Care Team Providers Care Commercial Cleaner Name Role Phone Diana Oseguera MD Primary Care Provider [phone] Reason for Referral * Consultation (Routine) - Authorized Specialty Diagnoses / Procedures Referred By Contclaude t Referred To Contact Gastroenterology Diagnoses Rectal bleeding Ramona Kelly PA [address] [place] [address] Phone: tel: fax: Gastroenterology - [address] [facility] [address] [place] [address] Phone: tel: fax: Referral ID Status Reason Start Date Expiration Date Visits Requested Visits Authorized [id number] Authorized Specialty Services Required 07/10/2024 07/10/2025 1 1 Reason for Visit * Reason Comments Rectal Bleeding Encounter Details Date Type Department Care Team ([facility] st Contact Info) Description 07/10/2024 12:29 PM EST - 07/10/2024 7:05 PM EST Emergency [facility] Emergency [address] [place] [id number] Rectal bleeding (Primary Dx) Discharge Disposition: Home or Self Care Social History Tobacco Use Types Packs/Day Years [...] Mass Index 35.44 07/10/2024 11:53 AM EST documented in this encounter Discharge Instructions * Discharge Instructions* MISTY Szymanski - 07/10/2024 6:38 PM EST You were seen in the emergency room today for blood in your stool. We did lab work, CT scan of yourabdomen, monitored your vital signs. The results did not show any concerning findings. Please follow-up with your primary care doctor following this emergency room visit. You need to follow-up with a service greeter, you should receive a phone call to help set up theappointment. Please return to the emergency room if you develop any worsening concerning symptoms. Gradually advance your diet as tolerated. Drink plenty of fluids. * Attachments The following attachments cannot be sent through Care Everywhere. * Rectal Bleeding (American) documented in this encounter Medications at Time of Discharge albuterol 2.5 mg /3 mL (0.083 %) nebulizer solutionIndicatio ns:Chronic obstructive pulmonary disease, unspecified COPD type (CMS/HCC),COPD exacerbation (CMS/HCC) Take 3 mL (2.5 mg total) by nebulization every 6 (six) hours if needed for wheezing. 360 mL 11 06/22/2024 albuterol HFA (PROAIR HFA ; PROVENTIL HFA ; VENTOLIN HFA) 90 mcg/actuation inhaler Inhale 2 puffs by mouth every 6 hours as needed. amitriptyline (ELAVIL) 150 mg tablet Take 1 tablet (150 mg total) by mouth at bedtime. betamethasone dipropionate (DIPROSONE) 0.05 % ointment Apply 0.05 Applications topically if needed for rash. 01/07/2024 docusate sodium (COLACE) 100 mg capsule Take 1 capsule (100 mg total) by mouth 1 (one) time each day if needed. 08/24/2023 DULoxetine (CYMBALTA) [address] capsule Take 1 capsule (20 mg total) by mouth 1 (one) time each day. for 30 days 04/20/2024 hydrocortisone 2.5 % cream Apply 1 Application topically if needed for rash. 08/23/2023 ipratropium-albut Andrew (DUONEB) 0.5-2.5 mg/3 mL nebulizer solution Inhale 3 mL into the lungs 4 times daily as needed for Other (dyspnea). 01/14/2024 ipratropium-albut Andrew (DUONEB) 0.5-2.5 mg/3 mL nebulizer solution Take 3 mL by nebulization every 6 (six) hours. 360 mL 11 06/10/2024 loperamide (IMODIUM) 2 mg capsule Take 1 capsule (2 mg total) by mouth every 6 hours. 01/24/2024 nicotine (NICODERM CQ) 21 mg/[address] 1 patch on the skin 1 (one) time each day at the same time. pregabalin (LYRICA) 50 mg capsule Take 1 capsule (50 mg total) by mouth. 01/24/2024 risankizumab-rzaa (Skyrizi) injection Inject into the skin. sildenafiL (VIAGRA) 100 mg tablet Take 1 tablet (100 mg total) by mouth if needed for erectile dysfunction. 01/01/2024 simethicone (MYLICON) 80 mg chewable tablet Chew 1 tablet (80 mg total). 07/08/2023 documented as of this encounter Discharge Disposition Disposition Code Departure Means Destination Comment s Home or Self Care documented in this encounter Progress Notes * Annette Sharma RN - 07/10/2024 11:51 AM EST PT to ED with + rectal bleeding at home with bowel movements. States bright red x1 week. Called cancer center and sent to ED due to his colon cancer history. 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 De Leon, as well as radiation,presents today with worsening lower abdominal pain over the past week as well as blood in his stool over the past week. Notes 1 episode a week ago followed by an episode of a large amount of blood in his stool and in the toilet bowl yesterday evening and an episode this morning. Denies any shortness of breath or lightheadedness. No rectal discomfort or pain. Rates his lower abdominal pain a 9 out of 10, nonradiating, constant. No vomiting but endorses nausea. Denies fevers, chills, weakness, chest pain, potation's, back pain, urinary symptoms. Reports history of appendectomy. He is followed by Dr. Bautista from heme-onc. ROS: I have performed a ROS with the pertinent positives and negatives documented in the history ofpresent illness. Previous History Past Medical History: Diagnosis Date Abdominal pain DX:Abdominal pain Abnormal screening CT of chest DX:Abnormal screening CT of chest Anxiety DX:Anxiety Cancer of rectosigmoid (colon) (CMS/HCC) 07/20/2022 DX:Cancer of rectosigmoid (colon) (HCC) Cardiomyopathy ([facility]/HCC) 07/28/2018 DX:Cardiomyopathy (HCC) Chronic left-sided low back pain without sciatica 03/07/2017 DX:Chronic left-sided low back pain without sciatica Chronic pain of both knees 08/24/2020 DX:Chronic pain of both knees Constipation 08/24/2020 DX:Constipation Controlled type 2 diabetes mellitus without complication, without long-term current use of insulin ([facility]) 12/09/2020 DX:Controlled type 2 diabetes mellitus without complication, without long-term current use of insulin ([facility]) COPD (chronic obstructive pulmonary disease) ([facility]/HCC) 07/11/2012 DX:COPD (chronic obstructive pulmonary disease) ([facility]) Depression DX:Depression Ex-smoker DX:Ex-smoker Gastroesophageal reflux disease without esophagitis 10/13/2018 DX:Gastroesophageal reflux disease without esophagitis GERD (gastroesophageal reflux disease) 04/18/2014 DX:GERD (gastroesophageal reflux disease) Historical Medical DX 07/11/2012 DX:Hyperlipidemia LDL goal < 130 Insomnia DX:Insomnia Liver lesion DX:Liver lesion Obesity DX:Obesity Previous back surgery 07/11/2012 DX:Previous back surgery Psoriasis 07/11/2012 DX:Psoriasis Rectal bleeding DX:Rectal bleeding Secondary cancer of lung ([facility]) 03/27/2024 DX:Secondary cancer of lung ([facility]) Splenic cyst 05/14/2022 DX:Splenic cyst; COMMENT: Pt with possible splenic cyst on 05/09/22. Incidental finding. Stage 3 severe COPD by GOLD classification ([facility]) 10/13/2018 DX:Stage 3 severe COPD by GOLD classification ([facility]) Tobacco use DX:Tobacco use Past Surgical History: Procedure Laterality Date APPENDECTOMY PROCEDURE: HISTORICAL APPENDECTOMY CIRCUMCISION, NON- PROCEDURE: CIRCUMCISION, NOT OTHER SURGICAL HISTORY PROCEDURE: PA ARTHRD ANT INTERBODY MIN DSC LUMBAR; COMMENT: L4-5 OTHER SURGICAL HISTORY 08/22/2023 PROCEDURE: HISTORY OTHER; COMMENT: closure of loop ileostomy Social History Tobacco Use Smoking status: Every Day Types: Cigarettes Smokeless tobacco: Never Tobacco comments: 1 PPD Substance Use Topics Alcohol use: No Drug use: Not Currently Family History Problem Relation Name Age of Onset COPD Mother Heart attack Brother 67.00 Stroke Brother is allergic to pregabalin and shellfish containing products. Current Facility-Administered Medications on File Prior to Encounter Medication Dose Route Frequency Provider Last Rate Last Admin predniSONE (DELTASONE) tablet 10 mg 10 mg oral Daily Marisol Rock MD Current Outpatient Medications on File Prior to Encounter Medication Sig Dispense Refill albuterol 2.5 mg /3 mL (0.083 %) nebulizer solution Take 3 mL (2.5 mg total) by nebulization every 6 (six) hours if needed for wheezing. 360 mL 11 albuterol HFA (PROAIR HFA ; PROVENTIL HFA ; VENTOLIN HFA) 90 mcg/actuation inhaler Inhale 2 puffs by mouth every 6 hours as needed. amitriptyline (ELAVIL) 150 mg tablet Take 1 tablet (150 mg total) by mouth at bedtime. betamethasone dipropionate (DIPROSONE) 0.05 % ointment Apply 0.05 Applications topically if needed for rash. docusate sodium (COLACE) 100 mg capsule Take 1 capsule (100 mg total) by mouth 1 (one) time each day if needed. DULoxetine (CYMBALTA) [address] capsule Take 1 capsule (20 mg total) by mouth 1 (one) time each day.for 30 days gkegfinamuq-stakyizdpusk-ndejccjazs (Trelegy Ellipta) 100-62.5-25 mcg inhaler Inhale 1 Puff into the lungs daily for 90 days. hydrocortisone 2.5 % cream Apply 1 Application topically if needed for rash. ipratropium-albuteroL (DUONEB) 0.5-2.5 mg/3 mL nebulizer solution Inhale 3 mL into the lungs 4 times daily as needed for Other (dyspnea). ipratropium-albuteroL (DUONEB) 0.5-2.5 mg/3 mL nebulizer solution Take 3 mL by nebulization every 6(six) hours. 360 mL 11 loperamide (IMODIUM) 2 mg capsule Take 1 capsule (2 mg total) by mouth every 6 hours. nicotine (NICODERM CQ) 21 mg/[address] 1 patch on the skin 1 (one) time each day at the same time. pregabalin (LYRICA) 50 mg capsule Take 1 capsule (50 mg total) by mouth. risankizumab-rzaa (Skyrizi) injection Inject into the skin. sildenafiL (VIAGRA) 100 mg tablet Take 1 tablet (100 mg total) by mouth if needed for erectile dysfunction. (Patient not taking: Reported on 05/11/2024) simethicone (MYLICON) 80 mg chewable tablet Chew 1 tablet (80 mg total). Physical Exam ED Triage Vitals [07/10/24 1153] Temp Heart Rate Resp BP 36.9 ??C (98.4 ??F) 74 16 (!) 145/88 SpO2 Temp Source Heart Rate Source Patient Position 98 % Oral -- Sitting BP Location FiO2 (%) Left arm -- GENERAL: Uncomfortable appearing, nontoxic. SKIN: Appropriate color for ethnicity, warm, dry. No rashes. HEENT: No stridor, no lymphadenopathy. NECK: Soft, supple, full ROM, Midline structures, nontender, no step-off, no deformity. CHEST: Heart regular rate and rhythm, no rubs, no gallops or murmurs. PULMONARY: Clear to auscultation bilaterally without any adventitious lung sounds. ABDOMINAL: Soft, nondistended with positive bowel sounds. Tender with patient in the bilateral lower quadrants without rebound or guarding, negative Katz's. RECTAL: No bright red blood per rectum, heme positive light brown stool. No hemorrhoids or masses appreciated. MUSCULOSKELETAL: Normal tone, moves all extremity spontaneously. NEURO: Alert and oriented x3, Cranial nerves II through XII are intact PSYCHIATRIC: Normal affect, fluid speech, good eye contact and appropriate demeanor. Results Labs Reviewed COMPREHENSIVE METABOLIC PANEL - Abnormal Result Value Sodium 138 Potassium 4.1 Chloride 107 CO2 28 Anion Gap 3 Glucose 123 (*) BUN 20 Creatinine 1.12 eGFR 73 BUN/Creatinine Ratio 17.9 Calcium 8.9 AST (SGOT) 21 ALT (SGPT) 38 Alkaline Phosphatase 104 Total Protein 7.2 Albumin 3.2 Total Bilirubin 0.3 CBC WITH AUTO DIFFERENTIAL - Abnormal WBC 5.4 RBC 4.80 Hemoglobin 14.4 Hematocrit 44.3 MCV 92.9 MCH 30.2 MCHC 32.5 RDW 13.9 Platelets 170 MPV 11.6 (*) NRBC 0.0 NRBC Absolute 0.00 Neutrophils Relative 58.1 Lymphocytes Relative 27.0 Monocytes Relative 7.9 Eosinophils Relative 5.2 Basophils Relative 1.1 Immature Granulocytes Relative 0.7 Neutrophils Absolute 3.14 Lymphocytes Absolute 1.46 Monocytes Absolute 0.43 Eosinophils Absolute 0.28 Basophils Absolute 0.06 Immature Granulocytes Absolute 0.04 (*) PROTHROMBIN TIME WITH INR - Normal Protime 12.0 INR 1.0 CBC AND DIFFERENTIAL Narrative: The following orders were created for panel order CBC and differential. Procedure Abnormality Status --------- ------ CBC auto differential[[id number]] Abnormal Final result Please view results for these tests on the individual orders. TYPE AND SCREEN ABO Group O Rh Type Positive Antibody Screen Negative Abnormal Labs Reviewed COMPREHENSIVE METABOLIC PANEL - Abnormal; Notable for the following components: Result Value Glucose 123 (*) All other components within normal limits CBC WITH AUTO DIFFERENTIAL - Abnormal; Notable for the following components: MPV 11.6 (*) Immature Granulocytes Absolute 0.04 (*) All other components within normal limits CT Angio Abdomen Pelvis wo and/or w Contrast Final Result No active arterial bleeding. No acute findings in the abdomen/pelvis. -------- FINAL REPORT -------- Dictated By: KJ ROSENBAUM Dictated Date: 07/10/2024 16:32 ET Assigned Physician: KJ ROSENBAUM Reviewed and Electronically Signed By: KJ ROSENBAUM Signed Date: 07/10/2024 16:42 ET Workstation ID: [id number] Transcribed By: Self Edit Transcribed Date: 07/10/2024 16:32 ET I have discussed the incidental/abnormal imaging and/or lab abnormalities with the patient and haveinstructed them the need for further evaluation and workup with their primary care doctor. I have provided the patient with a paper copy of the abnormality. The laboratory results, imaging results and other diagnostic exam results were reviewed in the EMR. EKG Interpretation Critical Care Time None Differential Diagnosis Lower GI bleed Colon malignancy Internal hemorrhoid Colitis ? Medical Decision Making Medications sodium chloride 0.9 % bolus 1,000 mL (0 mL intravenous Stopped 07/10/24 1724) ondansetron (PF) (ZOFRAN) injection 4 mg (4 mg intravenous Given 07/10/24 1427) morphine injection 4 mg (4 mg intravenous Given 07/10/24 1431) sodium chloride 0.9 % flush 10 mL (10 mL intravenous Given 07/10/24 1606) iopamidoL (ISOVUE-370) 370 mg iodine /mL (76 %) injection 100 mL (100 mL intravenous Given 07/10/24 1606) ED Course as of 07/10/24 1848 SatJul 10, 2024 1415 Patient seen and evaluated, he is stable, afebrile, uncomfortable appearing, presenting with bilateral lower abdominal pain as well as blood in his stool. Reports a week ago he noticed an episode of blood on his stool in the toilet bowl, began having lower abdominal pain that is worsened over the past week then yesterday evening had a bowel movement with a large amount of blood in the stool and toilet bowl, as well as an episode this morning. On my exam, no bright red blood per rectum, heme positive light brown stool. Lab workup is pending. Will obtain CT abdomen and pelvis angiography, will give morphine, Zofran, IV fluids. [YB] 1834 CT without acute findings, lab workup large unremarkable his H&H is stable he has had no further episodes of bloody stools while here in the emergency room and his pain is improved. His vitals remained stable. I discussed the case with Dr. Huffman, plan will be to discharge with outpatient GI follow-up, strict return precaution, close PCP follow-up. Patient expresses understanding of this plan. [YB] ED Course User Index [YB] MISTY Szymanski Clinical Impressions as of 07/10/241847 Rectal bleeding Procedures Procedures Diagnosis 1. Rectal bleeding CT Angio Abdomen Pelvis wo and/or w Contrast CT Angio Abdomen Pelvis wo and/or w Contrast Disposition Discharge ED Prescriptions None Physician Attestation MISTY Szymanski 07/10/24 1401 MISTY Szymanski 07/10/24 1425 MISTY Szymanski 07/10/24 1848 Cosigned by Raheem White MD at 07/13/2024 10:44 PM EST documented in this encounter Plan of Treatment Upcoming Encounters Date Type Department Care Team (Late st Contact Info) Description 08/14/2024 1:20 PM EST Office Visit Gastroenterology - [address] [facility] [address] [place] [address] Ramu Haynes PA [address] [address] 09/23/2024 9:30 AM EDT Appointment [facility] CT Scan [address] [place] [phone] 09/30/2024 1:00 PM EDT Appointment [facility] Radiation Oncology [address] [address] Neena Irwin NP [address] [place] [address] [facility] [place] [address] Scheduled Referrals Name Type Priority Associated Diagnoses Order Schedule Ambulatory referral to Gastroenterology Outpatient Referral Routine 1 Occurrences starting 07/10/2024 until 07/10/2025 documented as of this encounter Procedures Procedure Name Priority Date/Time Associated Diagnosis Comments CT ANGIO ABDOMEN PELVIS WO AND/OR W CONTRAST STAT 07/10/2024 4:13 PM EST Rectal bleeding PROTHROMBIN TIME WITH INR STAT 07/10/2024 2:28 PM EST CBC WITH AUTO DIFFERENTIAL STAT 07/10/2024 1:18 PM EST CBC AND DIFFERENTIAL STAT 07/10/2024 1:18 PM EST TYPE AND SCREEN STAT 07/10/2024 1:18 PM EST COMPREHENSIVE METABOLIC PANEL STAT 07/10/2024 1:18 PM EST documented in this encounter Results * CT Angio Abdomen Pelvis wo and/or w Contrast (07/10/2024 4:13 PM EST) Anatomical Region Laterality Modality Body Computed Tomogra phy 07/10/2024 4:32 PM EST Impressions 07/10/2024 4:42 PM EST No active arterial bleeding. ??No acute findings in the abdomen/pelvis. -------- FINAL REPORT -------- Dictated By: KJ ROSENBAUM Dictated Date: 07/10/2024 16:32 ET Assigned Physician: KJ ROSENBAUM Reviewed and Electronically Signed By: KJ ROSENBAUM Signed Date: 07/10/2024 16:42 ET Workstation ID: [id number] Transcribed By: Self Edit Transcribed Date: 07/10/2024 [...] normal. ??Celiac artery, SMA, renal arteries, and DEAN are patent. ??DEAN is small. No abdominal aortic aneurysm. Iliac [...] lesion. ??No acute fracture. Procedure Note Kj Rosenbaum MD - 07/10/2024 PROCEDURE: CT abdomen/pelvis INDICATION: [...] are normal. Celiac artery, SMA,renal arteries, and DEAN are patent. DEAN is small. No abdominal aortic aneurysm. Iliac [...] -------- FINAL REPORT -------- Dictated By: KJ ROSENBAUM Dictated Date: 07/10/2024 16:32 ET Assigned Physician: KJ ROSENBAUM Reviewed and Electronically Signed By: KJ ROSENBAUM Signed Date: 07/10/2024 16:42 ET Workstation ID: [id number] Transcribed By: Self Edit Transcribed Date: 07/10/2024 16:32 ET Ramona Kelly [facility] CT PROCEDURES Final Result * Prothrombin time with INR (07/10/2024 2:28 PM EST) Protime 12.0 10.6 - 13.9 sec LAB COAGULATION METHOD 07/10/2024 3:17 PM EST [facility] INR 1.0 LAB COAGULATION METHOD 07/10/2024 3:17 PM EST [facility] Blood Venous blood specimen / Unknown Venipuncture / Unknown 07/10/2024 2:28 PM EST 07/10/2024 2:53 PM EST [facility] [place] LAB BLOOD ORDERABLES Final Resul t [facility] [address] [place] [address], * (ABNORMAL) CBC auto differential (07/10/2024 1:18 PM EST) WBC 5.4 4.8 - 10.8 K/mcL LAB HEMETOLOGY METHOD 07/10/2024 2:35 PM EST [facility] RBC 4.80 4.50 - 5.50 M/mcL LAB HEMETOLOGY METHOD 07/10/2024 2:35 PM EST [facility] Hemoglobin 14.4 13.5 - 17.5 g/dL LAB HEMETOLOGY METHOD 07/10/2024 2:35 PM EST [facility] Hematocrit 44.3 42.0 - 54.0 % LAB HEMETOLOGY METHOD 07/10/2024 2:35 PM EST [facility] MCV 92.9 79.0 - 98.0 FL LAB HEMETOLOGY METHOD 07/10/2024 2:35 PM EST [facility] MCH 30.2 27.0 - 32.0 pcg LAB HEMETOLOGY METHOD 07/10/2024 2:35 PM EST [facility] MCHC 32.5 32.0 - 37.0 g/dL LAB HEMETOLOGY METHOD 07/10/2024 2:35 PM EST [facility] RDW 13.9 11.0 - 15.0 % LAB HEMETOLOGY METHOD 07/10/2024 2:35 PM EST [facility] Platelets 170 130 - 400 K/mcL LAB HEMETOLOGY METHOD 07/10/2024 2:35 PM EST [facility] MPV 11.6(H) 7.0 - 11.0 FL LAB HEMETOLOGY METHOD 07/10/2024 2:35 PM EST [facility] NRBC 0.0 <1.0 % LAB HEMETOLOGY METHOD 07/10/2024 2:35 PM [facility] NRBC Absolute 0.00 <0.10 K/mcL LAB HEMETOLOGY METHOD 07/10/2024 2:35 PM [facility] Neutrophils Relative 58.1 % LAB HEMETOLOGY METHOD 07/10/2024 2:35 PM [facility] Lymphocytes Relative 27.0 % LAB HEMETOLOGY METHOD 07/10/2024 2:35 PM [facility] Monocytes Relative 7.9 % LAB HEMETOLOGY METHOD 07/10/2024 2:35 PM [facility] Eosinophils Relative 5.2 % LAB HEMETOLOGY METHOD 07/10/2024 2:35 PM [facility] Basophils Relative 1.1 % LAB HEMETOLOGY METHOD 07/10/2024 2:35 PM [facility] Immature Granulocytes Relative 0.7 % LAB HEMETOLOGY METHOD 07/10/2024 2:35 PM [facility] Neutrophils Absolute 3.14 1.50 - 7.00 K/mcL LAB HEMETOLOGY METHOD 07/10/2024 2:35 PM [facility] Lymphocytes Absolute 1.46 1.00 - 5.00 K/mcL LAB HEMETOLOGY METHOD 07/10/2024 2:35 PM [facility] Monocytes Absolute 0.43 0.20 - 1.00 K/mcL LAB HEMETOLOGY METHOD 07/10/2024 2:35 PM [facility] Eosinophils Absolute 0.28 0.00 - 0.50 K/mcL LAB HEMETOLOGY METHOD 07/10/2024 2:35 PM [facility] Basophils Absolute 0.06 0.00 - 0.20 K/mcL LAB HEMETOLOGY METHOD 07/10/2024 2:35 PM [facility] Immature Granulocytes Absolute 0.04(H) 0.00 - 0.03 K/mcL LAB HEMETOLOGY METHOD 07/10/2024 2:35 PM EST [facility] Blood Venous blood specimen / Unknown Venipuncture / Unknown 07/10/2024 1:18 PM EST 07/10/2024 2:22 PM EST Raheem White MD LAB BLOOD ORDERABLES Final Result Performing Organization Address [facility] Co de Phone Number [facility] [address] [place] [address], [place] [phone] * Type and screen (07/10/2024 1:18 PM EST) Pathologist [facility] ABO Group O 07/10/2024 3:50 PM EST [facility] Rh Type Positive 07/10/2024 3:50 PM EST [facility] Antibody Screen Negative 07/10/2024 3:50 PM EST [facility] Blood Venous blood specimen / Unknown Venipuncture / Unknown 07/10/2024 1:18 PM EST 07/10/2024 2:22 PM EST Raheem White MD LAB BLOOD BANK TEST ORDERAB LES Final Result Performing Organization Address [facility]/ZIP Co de Phone Number [facility] [address] [place] [address], [place] [phone] * (ABNORMAL) Comprehensive metabolic panel (07/10/2024 1:18 PM EST) Sodium 138 133 - 145 mmol/L LAB CHEMISTRY METHOD 07/10/2024 3:49 PM EST [facility] Potassium 4.1 3.5 - 5.5 mmol/L LAB CHEMISTRY METHOD 07/10/2024 3:49 PM EST [facility] Chloride 107 96 - 110 mmol/L LAB CHEMISTRY METHOD 07/10/2024 3:49 PM [facility] CO2 28 21 - 32 mmol/L LAB CHEMISTRY METHOD 07/10/2024 3:49 PM [facility] Anion Gap 3 3 - 11 LAB CHEMISTRY METHOD 07/10/2024 3:49 PM [facility] Glucose 123(H) 70 - 100 mg/dL LAB CHEMISTRY METHOD 07/10/2024 3:49 PM [facility] BUN 20 5 - 25 mg/dL LAB CHEMISTRY METHOD 07/10/2024 3:49 PM [facility] Creatinine 1.12 0.70 - 1.30 mg/dL LAB CHEMISTRY METHOD 07/10/2024 3:49 PM [facility] eGFR 73 >=60 mL/min/1. 73m2 LAB CHEMISTRY METHOD 07/10/2024 3:49 PM [facility] Comment:Calculation based on the??Chronic Kidney Disease Epidemiology Collaboration (CKD-EPI) equation refit??without adjustment for race. BUN/Creatinine Ratio 17.9 LAB CHEMISTRY METHOD 07/10/2024 3:49 PM [facility] Calcium 8.9 8.5 - 10.5 mg/dL LAB CHEMISTRY METHOD 07/10/2024 3:49 PM [facility] AST (SGOT) 21 10 - 42 unit/L LAB CHEMISTRY METHOD 07/10/2024 3:49 PM [facility] ALT (SGPT) 38 10 - 60 unit/L LAB CHEMISTRY METHOD 07/10/2024 3:49 PM [facility] Alkaline Phosphatase 104 42 - 121 unit/L LAB CHEMISTRY METHOD 07/10/2024 3:49 PM [facility] Total Protein 7.2 6.0 - 8.0 g/dL LAB CHEMISTRY METHOD 07/10/2024 3:49 PM [facility] Albumin 3.2 3.2 - 5.0 g/dL LAB CHEMISTRY METHOD 07/10/2024 3:49 PM EST [facility] Total Bilirubin 0.3 0.0 - 1.4 mg/dL LAB CHEMISTRY METHOD 07/10/2024 3:49 PM EST [facility] Blood Venous blood specimen / Unknown Venipuncture / Unknown 07/10/2024 1:18 PM EST 07/10/2024 2:22 PM EST us Raheem White MD LAB BLOOD ORDERABLES Final Result [facility] [address] [place] [address], [place] [phone] documented in this encounter Visit Diagnoses Diagnosis Rectal bleeding- Primary Hemorrhage of rectum and anus documented in this encounter Administered Medications Inactive Administered Medications - up to 3 most recent administrations Medication Order MAR Action Action Date Dose Rate Site iopamidoL (ISOVUE-370) 370 mg iodine /mL (76 %) injection 100 mL 100 mL, intravenous, Once in imaging, Starting on Sat07/10/24 at 1553, For 1 dose Given 07/10/2024 4:06 PM EST 100 mL morphine injection 4 mg 4 mg, intravenous, Once, On Sat07/10/24 at 1415, For 1 dose Given 07/10/2024 2:31 PM EST 4 mg ondansetron (PF) (ZOFRAN) injection 4 mg 4 mg, intravenous, Once, On Sat07/10/24 at 1415, For 1 dose Given 07/10/2024 2:27 PM EST 4 mg sodium chloride 0.9 % bolus 1,000 mL 1,000 mL, intravenous, at 2,000 mL/hr, Administer over 30 Minutes, Once, On Sat07/10/24 at 1415, For 1 dose New Bag 07/10/2024 2:26 PM EST 1,000 mL 2000 mL/hr sodium chloride 0.9 % flush 10 mL 10 mL, intravenous, Once, On Sat07/10/24 at 1554, For 1 dose Given 07/10/2024 4:06 PM EST 10 mL documented in this encounter Active and Recently Administered Medications Times are shown in EST. Scheduled Medication Order 07/08/2024 07/09/202407/1007/10/2024 iopamidoL (ISOVUE-370) 370 mg iodine /mL (76 %) injection 100 mL (COMPLETED) 100 mL, intravenous, Once in imaging, Starting on Sat07/10/24 at 1553, For 1 dose 1606 (Given - Provid er: Anabelle Emerson) morphine injection 4 mg (COMPLETED) 4 mg, intravenous, Once, On Sat07/10/24 at 1415, For 1 dose 1431 (Given - Provid er: Celina Lopez RN) ondansetron (PF) (ZOFRAN) injection 4 mg (COMPLETED) 4 mg, intravenous, Once, On Sat07/10/24 at 1415, For 1 dose 1427 (Given - Provid er: Celina Lopez RN) sodium chloride 0.9 % bolus 1,000 mL (COMPLETED) 1,000 mL, intravenous, at 2,000 mL/hr, Administer over 30 Minutes, Once, On Sat07/10/24 at 1415, For 1 dose 1426 (New Bag - Prov ider: Celina Lopez RN)1724 (Stopped - Provider: Gail Carvalho RN) sodium chloride 0.9 % flush 10 mL (COMPLETED) 10 mL, intravenous, Once, On Sat07/10/24 at 1554, For 1 dose 1606 (Given - Provid er: Anabelle Emerson) documented in this encounter Care Teams Commercial Cleaner Relationship Specialty Start Date End Date Diana Oseguera MD [address] [place] [address] PCP - General Internal Medicine 12/27/14 documented as of this encounter
--- OUTSIDE RECORDS SUMMARY | 2024-08-05 12:35 | XMS_ITS | Clinical Summary ---
[facility] Address [address] [place] [address] Care Team Providers Care Outsole Cutter Machine Name Role Phone Diana Oseguera MD Primary Care Provider [phone] Allergies Active Allergy Reactions Criticality Noted Date Comments Pregabalin Swelling Medium 02/03/2024 Neck swelling, sore throat and difficulty swallowing Medications Medication Sig Dispensed Refills Start Date End Date Status amitriptyline (ELAVIL) 150 MG tablet Take 1 tablet (150 mg total) by mouth every night at bedtime. 0 Active albuterol (PROVENTIL HFA;VENTOLIN HFA) 108 (90 Base) MCG/ACT inhaler Inhale 2 puffs into the lungs every 6 (six) hours as needed for wheezing. 0 Active loperamide (IMODIUM) 2 MG capsule Take 1 capsule (2 mg total) by mouth every 6 (six) hours. 30 capsule 0 01/24/2024 Active nicotine (NICODERM CQ) 21 MG/24HR Place 1 patch onto the skin daily. 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 Social History Tobacco Use Types Packs/Day Years [...] file Not on file Not on file Last Filed Vital Signs Vital Sign Reading Time Taken Comments Blood Pressure 125/74 03/24/2024 11:16 AM EDT Pulse 80 03/24/2024 11:16 AM EDT Temperature 36.7 ??C (98 ??F) 03/24/2024 11:16 AM EDT Respiratory Rate 18 12/19/2022 9:00 AM EDT Oxygen Saturation 99% 03/24/2024 11:16 AM EDT Inhaled Oxygen Concentration - - Weight 107.5 kg (237 lb) 03/24/2024 11:16 AM EDT Height 175.3 cm (5' 9 ) 02/28/2024 10:46 AM EDT Body Mass Index 35 02/28/2024 10:46 AM EDT Plan of Treatment Health Maintenance Due Date Last Done Comments Hepatitis C Screening 1960 Depression Screening 1972 BMI Counseling 02/08/1978 Preventative Health Evaluation 02/08/1978 DTap / Tdap / Td (1 - Tdap) 02/08/1979 Shingrix-Zoster Vaccine (1 o f 2) 02/08/1979 Colon Cancer Screening (Colonoscopy) 02/08/2005 Pneumococcal Vaccine (2 of 2 - PCV) 08/18/2013 08/18/2012 Pneumococcal Vaccine (2 of 2 - PCV) 08/18/2013 08/18/2012 COVID-19 Vaccine (4 - 2023-2 5 season) 2024 11/15/2020, 10/25/2020, 09/15/2020 Influenza Vaccine (#1) 2024 1, 03/25/2009 RSV Adult > 60+ Yrs or (1 - 1-dose 75+ series) 02/08/2035 Hepatitis B Vaccines Aged Out No long er eligible based on patient's age to complete this topic RSV Ped < 20 months Aged Out No longe r eligible based on patient's age to complete this topic Care Teams Outsole Cutter Machine Relationship Specialty Start Date End Date Diana Oseguera MD PCP - General Internal Medicine 06/08/16
--- OUTSIDE RECORDS SUMMARY | 2024-08-05 12:35 | XMS_ITS | Encounter Summary ---
Author Organization [facility] Address [address] [place] [address] Care Team Providers Care Boxing Trainer Name Role Phone Diana Oseguera MD Primary Care Provider [phone] Encounter Details Date Type Department Care Team Description 08/14/2022 Social Work [facility] Oncology Services [address] [place] [address] Casimiro Mack, [facility] [place] Tobacco Use Types Packs/Day Years [...] suspected to have Coronavirus/COVID-19? No / Unsure 08/14/2022 9:57 AM EST documented as of this encounter Plan of Treatment Not on file documented as of this encounter Visit Diagnoses Not on filedocumented in this encounter Care Teams Boxing Trainer Relationship Specialty Start Date End Date Diana Oseguera MD PCP - General Internal Medicine 06/08/16 documented as of this encounter
--- OUTSIDE RECORDS SUMMARY | 2024-08-05 12:35 | XMS_ITS | Encounter Summary ---
Author Organization [facility] Address [address] [place] [address] Care Team Providers Care Legal Support Assistant Name Role Phone Diana Oseguera MD Primary Care Provider [phone] Encounter Details Date Type Department Care Team Description 08/14/2022 Social Work [facility] Oncology Services [address] [place] [address] Casimiro Mack, [facility] Social [place] Tobacco Use Types Packs/Day Years [...] on filedocumented in this encounter Care Teams Legal Support Assistant Relationship Specialty Start Date End Date Diana Oseguera MD PCP - General Internal Medicine 06/08/16 documented as of this encounter
--- OUTSIDE RECORDS SUMMARY | 2024-08-05 12:35 | XMS_ITS | Encounter Summary ---
Author Organization [facility] Address [address] [place] [address] Care Team Providers Care Hospice Consultant Name Role Phone Diana Oseguera MD Primary Care Provider [phone] Encounter Details Date Type Department Care Team [...] [address] [place] [id number] Ramu Carson PA [address] [place] [address] 09/23/2024 9:30 AM EDT Appointment [facility] CT Scan [address] [place] [phone] 09/30/2024 1:00 PM EDT Appointment [facility] Radiation Oncology [address] [phone] Neena Irwin NP [address] [place] [address] [place] [phone] documented as of this encounter Visit Diagnoses Not on filedocumented in this encounter Care Teams Hospice Consultant Relationship Specialty Start Date End Date Diana Oseguera MD [address] [place] [id number] PCP - General Internal Medicine 12/27/14 documented as of this encounter
== END 2024-08-05 11:40 | disposition home or self-care (01) ==
PROVIDERS: PCP Internal Medicine; Visit Provider Nurse Practitioner Family
DX: G47.01 Insomnia due to medical condition (principal); H02.402 Unspecified ptosis of left eyelid; R20.2 Paresthesia of skin; F41.9 Anxiety disorder, unspecified; F32.A Depression, unspecified; E11.9 Type 2 diabetes mellitus without complications
CPT/HCPCS: 99214

== ENCOUNTER 2024-08-05 10:46 | Outpatient (REF) | payer MEDICARE, SELFPAY ==
--- OUTSIDE RECORDS SUMMARY | 2024-08-05 13:37 | XMS_ITS | Clinical Summary ---
Author Organization 175 [facility] Address [address] [place] [address] Phone Care Team Providers Care Electrical Service Technician Name Role Phone Diana Oseguera MD Primary Care Provider [phone] Allergies Active Allergy Reactions Criticality Noted Date [...] with this medication. He ran out from [employer] a couple of days ago and he [...] years with creams and shampoos, follows with [facility] Encounters Date Type Department Care Team Description 07/10/2024 12:29 PM EST - 07/10/2024 7:05 PM EST Emergency [facility] Emergency [address] [place] [address] Rectal bleeding (Primary Dx) Discharge Disposition: Home or Self Care 07/10/2024 Telephone [facility] Hematology Oncology [address] [place] [address] Yvonne Bautista, DO Rectal Bleeding 06/25/2024 10:55 AM EST - 06/25/2024 11:59 PM EST Hospital Encounter [facility] Radiation Oncology [address] [facility] [address] [place] [phone] Neena Irwin NP 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) Discharge Disposition: Home or Self Care 06/22/2024 9:30 AM EST Office Visit Pulmonolgy - [place] [address] [facility] [address] [place] [phone] Marisol Rock MD Chronic obstructive pulmonary disease, unspecified COPD type (CMS/HCC) (Primary Dx); COPD exacerbation (CMS/HCC); Colon cancer metastasized to lung (CMS/HCC); [facility] [address] [phone] Marisol Rock MD Medication Problem; call back 06/19/2024 Telephone [facility] Radiation Oncology [address] [phone] Carla Eubanks, LAURENCE Cough 06/18/2024 1:30 PM EST Lab Draw Station - [address] [phone] Dyspnea, unspecified type 06/18/2024 12:52 PM EST - 06/18/2024 11:59 PM EST Hospital Encounter [facility] Xray [address] [place] [phone] Dyspnea, unspecified type Discharge Disposition: Home or Self Care 06/10[facility] [address] [phone] Marisol Rock MD 05/13/2024 11:15 AM EST - 05/13/2024 11:59 PM EST Hospital Encounter [facility] Radiation Oncology [address] [place] [phone] Roberto Degroot MD Rectosigmoid cancer (CMS/HCC) (Primary Dx); 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 ([facility]/HCC) Discharge Disposition: Home or Self Care 05/13/2024 10:51 AM EST - 05/13/2024 11:59 PM EST Hospital Encounter [facility] Radiation Oncology [address] [place] [phone] Roberto Degroot MD Discharge Disposition: Home or Self Care 05/12/2024 10:48 AM EST - 05/12/2024 11:59 PM EST Hospital Encounter [facility] Radiation Oncology [address] [place] [phone] Bettye Winn MD Discharge Disposition: Home or Self Care 05/11/2024 11:30 AM EST - 05/11/2024 11:59 PM EST Hospital Encounter [facility] Radiation Oncology [address] [place] [phone] Roberto Degroot MD 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); 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) Discharge Disposition: Home or Self Care 05/11/2024 11:15 AM EST - 05/11/2024 11:59 PM EST Hospital Encounter [facility] Radiation Oncology [address] [place] [phone] Roberto Degroot MD 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) Discharge Disposition: Home or Self Care 05/11/2024 10:55 AM EST - 05/11/2024 11:59 PM EST Hospital Encounter [facility] Radiation Oncology [address] [place] [phone] Roberto Degroot MD Rectosigmoid cancer (CMS/HCC) (Primary Dx); 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); 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) Discharge Disposition: Home or Self Care 05/05/2024 10:15 AM EST Office Visit [facility] Hematology Oncology [address] [place] [phone] Yvonne Bautista DO Rectosigmoid cancer (CMS/HCC) (Primary [...] PROCEDURE: CIRCUMCISION, NOT OTHER SURGICAL HISTORY PROCEDURE: IL ARTHRD ANT INTERBODY MIN DSC LUMBAR; COMMENT: L4-5 OTHER SURGICAL HISTORY 08/22/2023 PROCEDURE: HISTORY OTHER; COMMENT: closure of loop ileostomy Medical History Medical History Date Comments Psoriasis 07/11/2012 DX:Psoriasis Previous back surgery 07/11/2012 DX:Previou s back surgery COPD (chronic obstructive pu lmonary disease) (CMS/HCC) 07/11/2012 DX:COPD (chronic obstructive pulmonary disease) ([facility]) Historical Medical DX 07/11/2012 DX:Hyperli pidemia LDL [...] (CMS/HCC) 07/20/2022 DX:Cancer of rectosigmoid (c olon) ([facility]) Splenic cyst 05/14/2022 DX:Splenic cyst; COMMENT: Pt [...] 3 severe COPD by GO LD classification ([facility]) Family History Medical History Relation Name Comments [...] - [address] [facility] [address] [place] [phone] Ramu Carson PA [address] [place] [address] 09/23/2024 9:30 AM EDT Appointment [facility] CT Scan [address] [place] [phone] 09/30/2024 1:00 PM EDT Appointment [facility] Radiation Oncology [address] 2[address] [place] [address] eNena Irwin NP [address] [place] [address] [address] [place] [phone] Health [...] Signed Date: 07/10/2024 16:42 ET Workstation ID: [id number] Transcribed By: Self Edit Transcribed Date: 07/10/2024 [...] Signed Date: 07/10/2024 16:42 ET Workstation ID: [id number] Transcribed By: Self Edit Transcribed Date: 07/10/2024 16:32 ET [facility] IMG CT PROCEDURES Final Result * Prothrombin time with INR (07/10/2024 2:28 PM EST) Pathologist [facility] Protime 12.0 10.6 - 13.9 sec LAB COAGULATION METHOD 07/10/2024 3:[address] [facility] INR 1.0 LAB COAGULATION METHOD 07/10/2024 3:[address] [facility] Blood Venous blood specimen / Unknown Venipuncture / Unknown 07/10/2024 2:28 PM EST 07/10/2024 2:53 PM EST [facility] LAB BLOOD ORDERABLES Final Resul t [facility] [address] [place] [address], [place] [phone] * (ABNORMAL) CBC auto differential (07/10/2024 1:18 PM EST) Only the most recent of2 resultswithin the time period is included. WBC 5.4 4.8 - 10.8 K/mcL LAB HEMETOLOGY METHOD 07/10/2024 2:[address] [facility] RBC 4.80 4.50 - 5.50 M/mcL LAB HEMETOLOGY METHOD 07/10/2024 2:[address] [facility] Hemoglobin 14.4 13.5 - 17.5 g/dL LAB HEMETOLOGY METHOD 07/10/2024 2:35 PM [facility] Hematocrit 44.3 42.0 - 54.0 % LAB HEMETOLOGY METHOD 07/10/2024 2:35 PM [facility] MCV 92.9 79.0 - 98.0 FL LAB HEMETOLOGY METHOD 07/10/2024 2:35 PM [facility] MCH 30.2 27.0 - 32.0 pcg LAB HEMETOLOGY METHOD 07/10/2024 2:35 PM [facility] MCHC 32.5 32.0 - 37.0 g/dL LAB HEMETOLOGY METHOD 07/10/2024 2:35 PM [facility] RDW 13.9 11.0 - 15.0 % LAB HEMETOLOGY METHOD 07/10/2024 2:35 PM [facility] Platelets 170 130 - 400 K/mcL LAB HEMETOLOGY METHOD 07/10/2024 2:35 PM [facility] MPV 11.6(H) 7.0 - 11.0 FL LAB HEMETOLOGY METHOD 07/10/2024 2:35 PM [facility] NRBC 0.0 <1.0 % LAB HEMETOLOGY METHOD 07/10/2024 2:35 PM [facility] NRBC Absolute 0.00 <0.10 K/mcL LAB HEMETOLOGY METHOD 07/10/2024 2:35 PM [facility] Neutrophils Relative 58.1 % LAB HEMETOLOGY METHOD 07/10/2024 2:35 PM [facility] Lymphocytes Relative 27.0 % LAB HEMETOLOGY METHOD 07/10/2024 2:35 PM [facility] Monocytes Relative 7.9 % LAB HEMETOLOGY METHOD 07/10/2024 2:35 PM [facility] Eosinophils Relative 5.2 % LAB HEMETOLOGY METHOD 07/10/2024 2:[address] [facility] Basophils Relative 1.1 % LAB HEMETOLOGY METHOD 07/10/2024 2:[address] [facility] Immature Granulocytes Relative 0.7 % LAB HEMETOLOGY METHOD 07/10/2024 2:[address] [facility] Neutrophils Absolute 3.14 1.50 - 7.00 K/mcL LAB HEMETOLOGY METHOD 07/10/2024 2:[address] [facility] Lymphocytes Absolute 1.46 1.00 - 5.00 K/mcL LAB HEMETOLOGY METHOD 07/10/2024 2:[address] [facility] Monocytes Absolute 0.43 0.20 - 1.00 K/mcL LAB HEMETOLOGY METHOD 07/10/2024 2:[address] [facility] Eosinophils Absolute 0.28 0.00 - 0.50 K/mcL LAB HEMETOLOGY METHOD 07/10/2024 2:[address] [facility] Basophils Absolute 0.06 0.00 - 0.20 K/mcL LAB HEMETOLOGY METHOD 07/10/2024 2:[address] [facility] Immature Granulocytes Absolute 0.04(H) 0.00 - 0.03 K/mcL LAB HEMETOLOGY METHOD 07/10/2024 2:[address] [facility] Blood Venous blood specimen / Unknown Venipuncture / Unknown 07/10/2024 1:18 PM EST 07/10/2024 2:22 PM EST us Raheem White MD LAB BLOOD ORDERABLES Final Result [facility] [address] [place] [address], * Type and screen (07/10/2024 1:18 PM EST) ABO Group O 07/10/2024 3:[address] [facility] Rh Type Positive 07/10/2024 3:[address] [facility] Antibody Screen Negative 07/10/2024 3:50 PM [facility] Blood Venous blood specimen / Unknown Venipuncture / Unknown 07/10/2024 1:18 PM EST 07/10/2024 2:22 PM EST us Raheem White MD LAB BLOOD BANK TEST ORDERAB LES Final Result [facility] [address] [place] [address], * (ABNORMAL) Comprehensive metabolic panel (07/10/2024 1:18 PM EST) Pathologist [facility] Sodium 138 133 - 145 mmol/L LAB CHEMISTRY METHOD 07/10/2024 3:49 PM [facility] Potassium 4.1 3.5 - 5.5 mmol/L LAB CHEMISTRY METHOD 07/10/2024 3:49 PM [facility] Chloride 107 96 - 110 mmol/L LAB CHEMISTRY METHOD 07/10/2024 3:49 PM [facility] CO2 28 21 - 32 mmol/L LAB CHEMISTRY METHOD 07/10/2024 3:49 PM [facility] Anion Gap 3 3 - 11 LAB CHEMISTRY METHOD 07/10/2024 3:49 PM [facility] Glucose 123(H) 70 - 100 mg/dL LAB CHEMISTRY METHOD 07/10/2024 3:49 PM [facility] BUN 20 5 - 25 mg/dL LAB CHEMISTRY METHOD 07/10/2024 3:49 PM [facility] Creatinine 1.12 0.70 - 1.30 mg/dL LAB CHEMISTRY METHOD 07/10/2024 3:49 PM [facility] eGFR 73 >=60 mL/min/1. 73m2 LAB CHEMISTRY METHOD 07/10/2024 3:49 PM [facility] Comment:Calculation based on the??Chronic Kidney Disease Epidemiology Collaboration (CKD-EPI) equation refit??without adjustment for race. BUN/Creatinine Ratio 17.9 LAB CHEMISTRY METHOD 07/10/2024 3:49 PM [facility] Calcium 8.9 8.5 - 10.5 mg/dL LAB CHEMISTRY METHOD 07/10/2024 3:49 PM [facility] AST (SGOT) 21 10 - 42 unit/L LAB CHEMISTRY METHOD 07/10/2024 3:49 PM [facility] ALT (SGPT) 38 10 - 60 unit/L LAB CHEMISTRY METHOD 07/10/2024 3:49 PM [facility] Alkaline Phosphatase 104 42 - 121 unit/L LAB CHEMISTRY METHOD 07/10/2024 3:49 PM [facility] Total Protein 7.2 6.0 - 8.0 g/dL LAB CHEMISTRY METHOD 07/10/2024 3:49 PM [facility] Albumin 3.2 3.2 - 5.0 g/dL LAB CHEMISTRY METHOD 07/10/2024 3:49 PM [facility] Total Bilirubin 0.3 0.0 - 1.4 mg/dL LAB CHEMISTRY METHOD 07/10/2024 3:49 PM [facility] Blood Venous blood specimen / Unknown Venipuncture / Unknown 07/10/2024 1:18 PM EST 07/10/2024 2:22 PM EST us Raheem White MD LAB BLOOD ORDERABLES Final Result [facility] [address] [place] [address], * XR Chest 2 Views (06/18/2024 1:12 PM EST) Anatomical Region Laterality Modality Body Radiographic Shira ging 06/22/2024 3:28 PM EST Impressions 06/22/2024 3:30 PM EST No acute abnormality -------- FINAL REPORT -------- Dictated By: Shaun Pérez Dictated Date: 06/22/2024 15:28 ET Assigned Physician: Shaun Pérez Reviewed and Electronically Signed By: Shaun Pérez Signed Date: 06/22/2024 15:30 ET Workstation ID: [id number] Transcribed By: Self Edit Transcribed Date: 06/22/2024 [...] Signed Date: 06/22/2024 15:30 ET Workstation ID: [id number] Transcribed By: Self Edit Transcribed Date: 06/22/2024 15:28 ET Marisol Rock MD IMG XR PROCEDURES Final Result * Rad Onc Msq Treatment Summary (05/13/2024 11:16 AM EST) Treatment Site [facility] Q RADIATION ONCOLOGY Course [...] GY ORDERABLES Final Result Performing Organization Address City/[facility]/ZIP Co de Phone Number MOS[facility] RADIATION ONCOLOGY * Rad Onc Msq Treatment Summary (05/12/2024 11:28 AM EST) Pathologist [facility] Treatment Site [facility] RADIATION ONCOLOGY Course [...] sult * Hm Diabetes Foot Exam (10/07/2023) [facility] Diabetes: Annual Foot Exam abstracted Historical Provider MD HEALTH MAINTENANCE Final Result * Urine Albumin Creatinine Ratio (09/05/2023) [facility] Urine Albumin Creatinine Ratio abstracted Historical Provider MD HEALTH MAINTENANCE Final Result * Hemoglobin A1c (09/05/2023) [facility] Hemoglobin A1C 5.5 <=6.5 % Blood Venous blood specimen / Unknown Result [facility] Historical Provider MD LAB BLOOD ORDERABLES Miriam l Result * (ABNORMAL) Lipid panel (09/05/2023) [facility] LDL/HDL Ratio 5(A) 0 - 4 Triglycerides 173(A) 0 - 150 mg/dL Cholesterol 189 0 - 200 mg/dL HDL 37(A) >=40 mg/dL LDL Cholesterol 118(A) 0 - 100 mg/dL Blood Venous blood specimen / Unknown Result [facility] Historical Provider MD LAB BLOOD ORDERABLES Miriam l Result * CT LUNG SCREENING LOW DOSE (08/05/2022 12:47 PM EST) Anatomical Region Laterality Modality Computed Tomogra phy 08/04/2022 7:43 AM EST Narrative 08/05/2022 12:[address] [facility] Diagnostic Imaging Department [address] [place] [id number] Patient: ??TAMMY MENDOZA ?/Age/Sex: 1960 - 62 - M Unit#: ??[id number] ? Location/Status: ??SPDICATLS/REG CLI ? Mnemonic/Ordering Site: [...] contrast. DLP: 158.31 mGy/cm ??CTDIvol: 4.83 mGy Talkray VCT Iterative reconstruction technique Findings: Lungs and [...] (metastatic disease from known colon malignancy suspected) [id number] [id number] [id number] [id number] Dictating Physician: ??HOLLY HERRERA MD Electronically Signed by: ??HOLLY HERRERA MD Dic Date/Time: ??08/05/22 1229 Sign date/Time: ??08/05/22 1247 Procedure Note Holly Herrera MD - 07/26/2023 [facility] Diagnostic Imaging Department [address] [place] [address] Patient: TAMMY MENDOZA D.O.B./Age/Sex: 1960 - 62 - M Unit#: [id number] Location/Status: SPDICAS/REG CLI Mnemonic/Ordering Site: [facility] Ordering Physician: ALDO HERRING MD CT Lung Screening Low Dose - 08/04/22 - 0747 History: 62 year-old 78 pack-year former smoker, asymptomatic, for lungcancer screening. Quit smoking 3 years ago. Mother had lung carcinoma. Personalhistory of colon carcinoma. Comparison: 07/24/21 Technique: Helical volumetric imaging of the thorax was performed, usinglow- dose technique, without IV contrast. DLP: 158.31 mGy/cm CTDIvol: 4.83 mGy Talkray VCT Iterative reconstruction technique Findings: Lungs and [...] (metastatic disease from known colon malignancy suspected) [id number] [id number] G9557 G9551 Dictating Physician: HOLLY HERRERA [...] ID:[id number] Group ID:[id number] Type:Not on file Address: [facility] [address] [address] Care Teams Electrical Service Technician Relationship Specialty Start Date End Date Diana Oseguera MD [address] [place] [address] PCP - General Internal Medicine 12/27/14
--- OUTSIDE RECORDS SUMMARY | 2024-08-05 13:37 | XMS_ITS | Encounter Summary ---
Author Organization [facility] Address [address] [place] [address] Care Team Providers Care Trimming Operator Name Role Phone Diana Oseguera MD Primary Care Provider [phone] Encounter Details Date Type Department Care Team Description 01/24/2024 Social Work [facility] Oncology Services [address] [place] [address] Casimiro Mack, [facility] Social History Tobacco Use Types Packs/Day Years [...] on filedocumented in this encounter Care Teams Trimming Operator Relationship Specialty Start Date End Date Diana Oseguera MD PCP - General Internal Medicine 06/08/16 documented as of this encounter
--- OUTSIDE RECORDS SUMMARY | 2024-08-05 13:37 | XMS_ITS | Encounter Summary ---
Author Organization [facility] Address [address] [place] [address] Care Team Providers Care Linen Supervisor Name Role Phone Diana Oseguera MD Primary Care Provider [phone] Encounter Details Date Type Department Care Team Description 08/14/2022 Social Work [facility] Oncology Services [address] [place] [address] Casimiro Mack, [facility] Social History Tobacco Use Types [...] on filedocumented in this encounter Care Teams Linen Supervisor Relationship Specialty Start Date End Date Diana Oseguera MD PCP - General Internal Medicine 06/08/16 documented as of this encounter
--- OUTSIDE RECORDS SUMMARY | 2024-08-05 13:37 | XMS_ITS | Encounter Summary ---
[facility] Address [address] [place] [address] Care Team Providers Care Quality Control Supervisor Name Role Phone Diana Oseguera MD Primary Care Provider [phone] Encounter Details Date Type Department Care Team Description 04/10/2024 Social Work [facility] Oncology Services [address] [place] [address] Casimiro Mack, [facility] Social History Tobacco Use Types [...] on filedocumented in this encounter Care Teams Quality Control Supervisor Relationship Specialty Start Date End Date Diana Oseguera MD PCP - General Internal Medicine 06/08/16 documented as of this encounter
--- OUTSIDE RECORDS SUMMARY | 2024-08-05 13:37 | XMS_ITS | Encounter Summary ---
Author Organization [facility] Address [address] [place] [address] Care Team Providers Care Boarding Mother Name Role Phone Diana Oseguera MD Primary Care Provider [phone] Encounter Details Date Type Department Care Team (Late Contact Info) Description 03/24/2024 11:00 AM EDT Hospital Encounter TH HISTORIC ENCOUNTERS EASTERN CONVERSION ONLY Yvonne Bautista, DO [address] [place] [address] Social History Tobacco Use Types Packs/Day Years [...] Office Visit Gastroenterology - [address] [facility] [address] [place] [phone] Ramu Carson PA [address] [facility] [address] [place] [address] 09/23/2024 9:[address] [facility] CT Scan [address] [place] [phone] 09/30/2024 1:[address] [facility] Radiation Oncology [address] [place] [phone] Neena Irwin NP [address] [place] [address] [place] [address] documented as of this encounter Visit Diagnoses Not on filedocumented in this encounter Care Teams Boarding Mother Relationship Specialty Start Date End Date Diana Oseguera MD [address] [place] [address] PCP - General Internal Medicine 12/27/14 documented as of this encounter
--- OUTSIDE RECORDS SUMMARY | 2024-08-05 13:37 | XMS_ITS | Encounter Summary ---
Author Organization [facility] Address [address] [place] [address] Care Team Providers Care Jewel Hole Driller Name Role Phone Diana Oseguera MD Primary Care Provider [phone] Encounter Details Date Type Department Care Team Description 03/28/2023 Social Work [facility] Oncology Services [address] [place] [address] Casimiro Mack, [facility] Social History Tobacco Use Types Packs/Day Years [...] on filedocumented in this encounter Care Teams Jewel Hole Driller Relationship Specialty Start Date End Date Diana Oseguera MD PCP - General Internal Medicine 06/08/16 documented as of this encounter
--- OUTSIDE RECORDS SUMMARY | 2024-08-05 13:37 | XMS_ITS | Encounter Summary ---
Author Organization [facility] Address [address] [place] [address] Care Team Providers Care Ovens Supervisor Name Role Phone Diana Oseguera MD Primary Care Provider [phone] Encounter Details Date Type Department Care Team (Late st Contact Info) Description 03/24/2024 10:34 AM EDT Hospital Encounter TH HISTORIC ENCOUNTERS EASTERN CONVERSION ONLY Yvonne Bautista, DO [address] [place] [address] Social History Tobacco Use Types Packs/Day Years [...] 12:25 PM Encounter Date: 03/24/2024 Status: Addendum Mission Coordinator: Yvonne Bautista DO (Physician) Related Notes: Original [...] to 1.5 packs per day 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 Sign: Yvonne Bautista DO Hematology/Oncology Sister [facility] [phone] CC: Dr Beau Oseguera, MD Diana Encounter involves review of pathology, discussion with outside physician, documentation in medicalrecord, ordering additional testing, care of patient in longitudinal fashion, documented in this encounter Plan of Treatment Upcoming Encounters Date Type Department Care Team (Late st Contact Info) Description 08/14/2024 1:20 PM EST Office Visit Gastroenterology - 299 [facility] 299 [facility] [address] [place] [phone] Ramu Carson PA 299 [facility] [address] [place] [address] 09/23/2024 9:30 AM EDT Appointment [facility] CT Scan [address] [place] [phone] 09/30/2024 1:00 PM EDT Appointment [facility] Radiation Oncology [address] [facility] 2nd [place] [phone] Neena Irwin NP [address] [place] [address] [address] [place]ijeet [place] [address] documented as of this encounter Procedures Procedure [...] on filedocumented in this encounter Care Teams Ovens Supervisor Relationship Specialty Start Date End Date Diana Oseguera MD [address] [place] [address] PCP - General Internal Medicine 12/27/14 documented as of this encounter
--- OUTSIDE RECORDS SUMMARY | 2024-08-05 13:37 | XMS_ITS | Encounter Summary ---
Author Organization [facility] Address [address] [place] [address] Care Team Providers Care Oil Painter Name Role Phone Diana Oseguera MD Primary Care Provider [phone] Encounter Details Date Type Department Care Team Description 08/14/2022 Social Work [facility] Oncology Services [address] [place] [address] Casimiro Mack, [facility] Social History Tobacco Use Types Packs/Day Years [...] on filedocumented in this encounter Care Teams Oil Painter Relationship Specialty Start Date End Date Diana Oseguera MD PCP - General Internal Medicine 06/08/16 documented as of this encounter
--- OUTSIDE RECORDS SUMMARY | 2024-08-05 13:37 | XMS_ITS ---
Author Organization 175 [facility] Address [address] [place] [address] Phone Care Team Providers Care Cloth Calender Name Role Phone Diana Oseguera MD Primary Care Provider [phone] Active Problems Problem Noted Date Diagnosed Date [...] with this medication. He ran out from [employer] a couple of days ago and he [...] years with creams and shampoos, follows with [facility] Current Oncology Plans No current plan [...]
--- OUTSIDE RECORDS SUMMARY | 2024-08-05 13:37 | XMS_ITS | Clinical Summary ---
[facility] Address [address] [place] [address] Care Team Providers Care Big 6 Dealer Name Role Phone Diana Oseguera MD Primary Care Provider [phone] Allergies Active Allergy Reactions Criticality Noted Date [...] age to complete this topic Care Teams Big 6 Dealer Relationship Specialty Start Date End Date Diana Oseguera MD PCP - General Internal Medicine 06/08/16
--- OUTSIDE RECORDS SUMMARY | 2024-08-05 13:37 | XMS_ITS | Encounter Summary ---
Author Organization [facility] Address [address] [place] [address] Care Team Providers Care Case Managers Name Role Phone Diana Oseguera MD Primary Care Provider [phone] Reason for Referral * Consultation (Routine) - Authorized Specialty Diagnoses / Procedures Referred By Contclaude t Referred To Contact Gastroenterology Diagnoses Rectal bleeding Ramona Kelly PA [address] [place] [address] Phone: tel: fax: Gastroenterology - [address] [place] [address] Phone: tel: fax: Referral ID Status Reason Start Date Expiration Date Visits Requested Visits Authorized [id number] Authorized Specialty Services Required 07/10/2024 07/10/2025 1 1 Reason for Visit * Reason Comments Rectal Bleeding Encounter Details Date Type Department Care Team ([facility] st Contact Info) Description 07/10/2024 12:29 PM EST - 07/10/2024 7:05 PM EST Emergency [facility] Emergency [address] [place] [phone] Rectal bleeding (Primary Dx) Discharge Disposition: Home [...] visit. You need to follow-up with a social work instructor, you should receive a phone call to help set up theappointment. Please return to the emergency room if you develop any worsening concerning symptoms. Gradually advance your diet as tolerated. Drink plenty of fluids. * Attachments The following attachments cannot be sent through Care Everywhere. * Rectal Bleeding (Samoan) documented in this encounter Medications at Time [...] 07/20/2022 DX:Cancer of rectosigmoid (colon) (HCC) Cardiomyopathy ([facility]/HCC) 07/28/2018 DX:Cardiomyopathy (HCC) Chronic left-sided low back pain without sciatica 03/07/2017 DX:Chronic left-sided low back pain without sciatica Chronic pain of both knees 08/24/2020 DX:Chronic pain of both knees Constipation 08/24/2020 DX:Constipation Controlled type 2 diabetes mellitus without complication, without long-term current use of insulin ([facility]) 12/09/2020 DX:Controlled type 2 diabetes mellitus without complication, without long-term current use of insulin ([facility]) COPD (chronic obstructive pulmonary disease) ([facility]/HCC) 07/11/2012 DX:COPD (chronic obstructive pulmonary disease) ([facility]) Depression DX:Depression Ex-smoker DX:Ex-smoker Gastroesophageal reflux disease without esophagitis 10/13/2018 DX:Gastroesophageal reflux disease without esophagitis GERD (gastroesophageal reflux disease) 04/18/2014 DX:GERD (gastroesophageal reflux disease) Historical Medical DX 07/11/2012 DX:Hyperlipidemia LDL goal < 130 Insomnia DX:Insomnia Liver lesion DX:Liver lesion Obesity DX:Obesity Previous back surgery 07/11/2012 DX:Previous back surgery Psoriasis 07/11/2012 DX:Psoriasis Rectal bleeding DX:Rectal bleeding Secondary cancer of lung ([facility]) 03/27/2024 DX:Secondary cancer of lung ([facility]) Splenic cyst 05/14/2022 DX:Splenic cyst; COMMENT: Pt with possible splenic cyst on 05/09/22. Incidental finding. Stage 3 severe COPD by GOLD classification ([facility]) 10/13/2018 DX:Stage 3 severe COPD by GOLD classification ([facility]) Tobacco use DX:Tobacco use Past Surgical History: Procedure Laterality Date APPENDECTOMY PROCEDURE: HISTORICAL APPENDECTOMY CIRCUMCISION, NON- PROCEDURE: CIRCUMCISION, NOT OTHER SURGICAL HISTORY PROCEDURE: MO ARTHRD ANT INTERBODY MIN DSC LUMBAR; COMMENT: [...] 1 (one) time each day.for 30 days jmebllobwos-cslljrhygyah-doqglpqniz (Trelegy Ellipta) 100-62.5-25 mcg inhaler Inhale 1 [...] Procedure Abnormality Status --------- ------ CBC auto differential[[id number]] Abnormal Final result Please view results for [...] Signed Date: 07/10/2024 16:42 ET Workstation ID: [id number] Transcribed By: Self Edit Transcribed Date: 07/10/2024 [...] Office Visit Gastroenterology - [address] [place] [address] Ramu Haynes PA [address] [address] 09/23/2024 9:30 AM EDT Appointment [facility] CT Scan [address] [place] [phone] 09/30/2024 1:00 PM EDT Appointment [facility] Radiation Oncology [address] [address] Neena Irwin NP [address] [place] [address] [place] [address] Scheduled Referrals Name Type Priority Associated Diagnoses [...] Signed Date: 07/10/2024 16:42 ET Workstation ID: [id number] Transcribed By: Self Edit Transcribed Date: 07/10/2024 [...] Signed Date: 07/10/2024 16:42 ET Workstation ID: [id number] Transcribed By: Self Edit Transcribed Date: 07/10/2024 16:32 ET Ramona Kelly [facility] CT PROCEDURES Final Result * Prothrombin time with INR (07/10/2024 2:28 PM EST) Protime 12.0 10.6 - 13.9 sec LAB COAGULATION METHOD 07/10/2024 3:17 PM EST [facility] INR 1.0 LAB COAGULATION METHOD 07/10/2024 3:17 PM EST [facility] Blood Venous blood specimen / Unknown Venipuncture / Unknown 07/10/2024 2:28 PM EST 07/10/2024 2:53 PM EST [facility] [place] LAB BLOOD ORDERABLES Final Resul t [facility] [address] [place] [address], * (ABNORMAL) CBC auto differential (07/10/2024 1:18 PM EST) WBC 5.4 4.8 - 10.8 K/mcL LAB HEMETOLOGY METHOD 07/10/2024 2:35 PM EST [facility] RBC 4.80 4.50 - 5.50 M/mcL LAB HEMETOLOGY METHOD 07/10/2024 2:35 PM EST [facility] Hemoglobin 14.4 13.5 - 17.5 g/dL LAB HEMETOLOGY METHOD 07/10/2024 2:35 PM EST [facility] Hematocrit 44.3 42.0 - 54.0 % LAB HEMETOLOGY METHOD 07/10/2024 2:35 PM EST [facility] MCV 92.9 79.0 - 98.0 FL LAB HEMETOLOGY METHOD 07/10/2024 2:35 PM EST [facility] MCH 30.2 27.0 - 32.0 pcg LAB HEMETOLOGY METHOD 07/10/2024 2:35 PM EST [facility] MCHC 32.5 32.0 - 37.0 g/dL LAB HEMETOLOGY METHOD 07/10/2024 2:35 PM EST [facility] RDW 13.9 11.0 - 15.0 % LAB HEMETOLOGY METHOD 07/10/2024 2:35 PM EST [facility] Platelets 170 130 - 400 K/mcL LAB HEMETOLOGY METHOD 07/10/2024 2:35 PM EST [facility] MPV 11.6(H) 7.0 - 11.0 FL LAB HEMETOLOGY METHOD 07/10/2024 2:35 PM EST [facility] NRBC 0.0 <1.0 % LAB HEMETOLOGY METHOD 07/10/2024 2:35 PM [facility] NRBC Absolute 0.00 <0.10 K/mcL LAB HEMETOLOGY METHOD 07/10/2024 2:35 PM [facility] Neutrophils Relative 58.1 % LAB HEMETOLOGY METHOD 07/10/2024 2:35 PM [facility] Lymphocytes Relative 27.0 % LAB HEMETOLOGY METHOD 07/10/2024 2:35 PM [facility] Monocytes Relative 7.9 % LAB HEMETOLOGY METHOD 07/10/2024 2:35 PM [facility] Eosinophils Relative 5.2 % LAB HEMETOLOGY METHOD 07/10/2024 2:35 PM [facility] Basophils Relative 1.1 % LAB HEMETOLOGY METHOD 07/10/2024 2:35 PM [facility] Immature Granulocytes Relative 0.7 % LAB HEMETOLOGY METHOD 07/10/2024 2:35 PM [facility] Neutrophils Absolute 3.14 1.50 - 7.00 K/mcL LAB HEMETOLOGY METHOD 07/10/2024 2:35 PM [facility] Lymphocytes Absolute 1.46 1.00 - 5.00 K/mcL LAB HEMETOLOGY METHOD 07/10/2024 2:35 PM [facility] Monocytes Absolute 0.43 0.20 - 1.00 K/mcL LAB HEMETOLOGY METHOD 07/10/2024 2:35 PM [facility] Eosinophils Absolute 0.28 0.00 - 0.50 K/mcL LAB HEMETOLOGY METHOD 07/10/2024 2:35 PM [facility] Basophils Absolute 0.06 0.00 - 0.20 K/mcL LAB HEMETOLOGY METHOD 07/10/2024 2:35 PM [facility] Immature Granulocytes Absolute 0.04(H) 0.00 - 0.03 K/mcL LAB HEMETOLOGY METHOD 07/10/2024 2:35 PM EST [facility] Blood Venous blood specimen / Unknown Venipuncture / Unknown 07/10/2024 1:18 PM EST 07/10/2024 2:22 PM EST Raheem White MD LAB BLOOD ORDERABLES Final Result Performing Organization Address [facility] Co de Phone Number [facility] [address] [place] [address], [place] [phone] * Type and screen (07/10/2024 1:18 PM EST) Pathologist [facility] ABO Group O 07/10/2024 3:50 PM EST [facility] Rh Type Positive 07/10/2024 3:50 PM EST [facility] Antibody Screen Negative 07/10/2024 3:50 PM EST [facility] Blood Venous blood specimen / Unknown Venipuncture / Unknown 07/10/2024 1:18 PM EST 07/10/2024 2:22 PM EST Raheem White MD LAB BLOOD BANK TEST ORDERAB LES Final Result Performing Organization Address [facility]/ZIP Co de Phone Number [facility] [address] [place] [address], [place] [phone] * (ABNORMAL) Comprehensive metabolic panel (07/10/2024 1:18 PM EST) Sodium 138 133 - 145 mmol/L LAB CHEMISTRY METHOD 07/10/2024 3:49 PM EST [facility] Potassium 4.1 3.5 - 5.5 mmol/L LAB CHEMISTRY METHOD 07/10/2024 3:49 PM EST [facility] Chloride 107 96 - 110 mmol/L LAB CHEMISTRY METHOD 07/10/2024 3:49 PM [facility] CO2 28 21 - 32 mmol/L LAB CHEMISTRY METHOD 07/10/2024 3:49 PM [facility] Anion Gap 3 3 - 11 LAB CHEMISTRY METHOD 07/10/2024 3:49 PM [facility] Glucose 123(H) 70 - 100 mg/dL LAB CHEMISTRY METHOD 07/10/2024 3:49 PM [facility] BUN 20 5 - 25 mg/dL LAB CHEMISTRY METHOD 07/10/2024 3:49 PM [facility] Creatinine 1.12 0.70 - 1.30 mg/dL LAB CHEMISTRY METHOD 07/10/2024 3:49 PM [facility] eGFR 73 >=60 mL/min/1. 73m2 LAB CHEMISTRY METHOD 07/10/2024 3:49 PM [facility] Comment:Calculation based on the??Chronic Kidney Disease Epidemiology Collaboration (CKD-EPI) equation refit??without adjustment for race. BUN/Creatinine Ratio 17.9 LAB CHEMISTRY METHOD 07/10/2024 3:49 PM [facility] Calcium 8.9 8.5 - 10.5 mg/dL LAB CHEMISTRY METHOD 07/10/2024 3:49 PM [facility] AST (SGOT) 21 10 - 42 unit/L LAB CHEMISTRY METHOD 07/10/2024 3:49 PM [facility] ALT (SGPT) 38 10 - 60 unit/L LAB CHEMISTRY METHOD 07/10/2024 3:49 PM [facility] Alkaline Phosphatase 104 42 - 121 unit/L LAB CHEMISTRY METHOD 07/10/2024 3:49 PM [facility] Total Protein 7.2 6.0 - 8.0 g/dL LAB CHEMISTRY METHOD 07/10/2024 3:49 PM [facility] Albumin 3.2 3.2 - 5.0 g/dL LAB CHEMISTRY METHOD 07/10/2024 3:49 PM EST [facility] Total Bilirubin 0.3 0.0 - 1.4 mg/dL LAB CHEMISTRY METHOD 07/10/2024 3:49 PM EST [facility] Blood Venous blood specimen / Unknown Venipuncture / Unknown 07/10/2024 1:18 PM EST 07/10/2024 2:22 PM EST us Raheem White MD LAB BLOOD ORDERABLES Final Result [facility] [address] [place] [address], [place] [phone] documented in this encounter Visit Diagnoses Diagnosis [...] Emerson) documented in this encounter Care Teams Case Managers Relationship Specialty Start Date End Date Diana Oseguera MD [address] [place] [address] PCP - General Internal Medicine 12/27/14 documented as of this encounter
--- OUTSIDE RECORDS SUMMARY | 2024-08-05 13:37 | XMS_ITS | Encounter Summary ---
Author Organization [facility] Address [address] [place] [address] Care Team Providers Care Lobster Man Name Role Phone Diana Oseguera MD Primary Care Provider [phone] Encounter Details Date Type Department Care Team [...] [address] [place] [phone] Ramu Carson PA [address] [place] [address] 09/23/2024 9:30 AM EDT Appointment [facility] CT Scan [address] [place] [phone] 09/30/2024 1:00 PM EDT Appointment [facility] Radiation Oncology [address] [phone] Neena Irwin NP [address] [place] [address] [place] [phone] documented as of this encounter Visit Diagnoses Not on filedocumented in this encounter Care Teams Lobster Man Relationship Specialty Start Date End Date Diana Oseguera MD [address] [place] [address] PCP - General Internal Medicine 12/27/14 documented as of this encounter
--- OUTSIDE RECORDS SUMMARY | 2024-08-05 13:37 | XMS_ITS ---
Author Organization [facility] Address [address] [place] [address] Care Team Providers Care Personal Property Appraiser Name Role Phone Diana Oseguera MD Primary Care Provider [phone] Active Problems Problem Noted Date Diagnosed Date [...] treatments are documented for this patient in [facility]. Treatments may have been administered in another system.
--- OUTSIDE RECORDS SUMMARY | 2024-08-05 13:37 | XMS_ITS | Encounter Summary ---
Author Organization [facility] Address [address] [place] [address] Care Team Providers Care Splicing Technician Name Role Phone Diana Oseguera MD Primary Care Provider [phone] Encounter Details Date Type Department Care Team [...] [address] [place] [phone] Ramu Carson PA [address] [place] [address] 09/23/2024 9:30 AM EDT Appointment [facility] CT Scan [address] [place] [phone] 09/30/2024 1:00 PM EDT Appointment [facility] Radiation Oncology [address] [phone] Neena Irwin NP [address] [place] [address] [place] [phone] documented as of this encounter Visit Diagnoses Not on filedocumented in this encounter Care Teams Splicing Technician Relationship Specialty Start Date End Date Diana Oseguera MD [address] [place] [address] PCP - General Internal Medicine 12/27/14 documented as of this encounter
--- OUTSIDE RECORDS SUMMARY | 2024-08-05 13:37 | XMS_ITS | Encounter Summary ---
Author Organization [facility] Address [address] [place] [address] Care Team Providers Care Environmental Maintenance Worker Name Role Phone Diana Oseguera MD Primary Care Provider [phone] Encounter Details Date Type Department Care Team Description 08/27/2022 Social Work [facility] Oncology Services [address] [place] [address] Casimiro Mack, [facility] Social History Tobacco Use Types Packs/Day Years [...] on filedocumented in this encounter Care Teams Environmental Maintenance Worker Relationship Specialty Start Date End Date Diana Oseguera MD PCP - General Internal Medicine 06/08/16 documented as of this encounter
--- OUTSIDE RECORDS SUMMARY | 2024-08-05 13:37 | XMS_ITS | Encounter Summary ---
Author Organization [facility] Address [address] [place] [address] Care Team Providers Care Aquatic Scientist Name Role Phone Diana Oseguera MD Primary Care Provider [phone] Encounter Details Date Type Department Care Team Description 08/30/[address] [facility] Oncology Services [address] [place] [address] Casimiro Mack, [facility] Social History Tobacco Use Types Packs/Day Years [...] on filedocumented in this encounter Care Teams Aquatic Scientist Relationship Specialty Start Date End Date Diana Oseguera MD PCP - General Internal Medicine 06/08/16 documented as of this encounter
--- OUTSIDE RECORDS SUMMARY | 2024-08-05 13:37 | XMS_ITS | Encounter Summary ---
Author Organization [facility] Address [address] [place] [address] Care Team Providers Care Business Process Associate Name Role Phone Diana Oseguera MD Primary Care Provider [phone] Encounter Details Date Type Department Care Team Description 04/10/2024 Social Work [facility] Oncology Services [address] [place] [address] Casimiro Mack, [facility] Social History Tobacco Use Types Packs/Day Years [...] on filedocumented in this encounter Care Teams Business Process Associate Relationship Specialty Start Date End Date Diana Oseguera MD PCP - General Internal Medicine 06/08/16 documented as of this encounter
--- OUTSIDE RECORDS SUMMARY | 2024-08-05 13:37 | XMS_ITS | Encounter Summary ---
Author Organization [facility] Address [address] [place] [address] Care Team Providers Care Assembler Dc Field Yoke Name Role Phone Diana Oseguera MD Primary Care Provider [phone] Encounter Details Date Type Department Care Team Description 02/13/2023 Social Work [facility] Oncology Services [address] [place] [address] Casimiro Mack, [facility] Social History Tobacco Use Types Packs/Day Years [...] on filedocumented in this encounter Care Teams Assembler Dc Field Yoke Relationship Specialty Start Date End Date Diana Oseguera MD PCP - General Internal Medicine 06/08/16 documented as of this encounter
--- OUTSIDE RECORDS SUMMARY | 2024-08-05 13:37 | XMS_ITS | Encounter Summary ---
Author Organization [facility] Address [address] [place] [address] Care Team Providers Care Hot Dip Plater Name Role Phone Diana Oseguera MD Primary Care Provider [phone] Reason for Visit * Reason Onset Date Comments Rectal Bleeding 07/10/2024 Encounter Details Date Type Department Care Team (Late st Contact Info) Description 07/10/2024 Telephone [facility] Hematology Oncology [address] [place] [phone] Yvonne Bautista, DO [address] [place] [address] Rectal Bleeding Social History Tobacco Use Types [...] with pain. Pt agreed to come to [facility] for evaluation. ER Expect line notified. * [...] being caused my radiation. Please call himat [phone] documented in this encounter Plan of Treatment Upcoming Encounters Date Type Department Care Team (Late st Contact Info) Description 08/14/2024 1:20 PM EST Office Visit Gastroenterology - 299 [facility] [address] [facility] [address] [place] [phone] Ramu Carson PA [address] [facility] [address] [place] [address] 09/23/2024 9:30 AM EDT Appointment [facility] CT Scan [address] [place] [address] 09/30/2024 1:00 PM EDT Appointment [facility] Radiation Oncology [address] [facility] 2nd [place] [address] Neena Irwin NP [address] [place] [phone] documented as of this encounter Visit Diagnoses Not on filedocumented in this encounter Care Teams Hot Dip Plater Relationship Specialty Start Date End Date Diana Oseguera MD [address] [place] [address] PCP - General Internal Medicine 12/27/14 documented as of this encounter
[2024-08-05 17:42] LABS: MANUAL DIFF FLAG NO
[2024-08-05 18:09] LABS: Basophils Absolute Auto 0.1 X10*3/uL (0.0-0.2); Basophils Percent Auto 0.9 % (0-2); Eosinophils Absolute Auto 0.3 X10*3/uL (0.0-0.4); Eosinophils Percent Auto 5.2 % (0-4); Hemoglobin 14.8 g/dl (14.0-18.0); Imm Gran Abs Auto 0.05 X10*3/uL (0.00-0.03); Imm Gran Pct Auto 0.9 % (0.0-0.4); Lymphocytes Absolute Auto 1.5 X10*3/uL (1.2-4.9); Lymphocytes Percent Auto 25.6 % (20-40); Mean Corpuscular HGB Conc 33.6 g/dl (31.0-36.0); Mean Corpuscular Hemoglobin 30.6 pg (27.0-33.0); Mean Corpuscular Volume 91.1 fL (80.0-98.0); Mean Platelet Volume 11.3 fL (9.4-12.4); Monocytes Absolute Auto 0.5 X10*3/uL (0.1-1.2); Monocytes Percent Auto 8.6 % (2-11); Neutrophils Absolute Auto 3.4 x10*3/uL (2.0-8.3); Neutrophils Percent Auto 58.8 % (45-73); Platelet Count 169 X10*3/uL (160-400); Red Blood Count 4.83 X10*6/uL (4.60-5.80); Red Cell Distribution Width 14.1 % (11.0-16.0); White Blood Count 5.8 X10*3/uL (4.8-10.8)
[2024-08-05 18:26] LABS: Alanine Aminotransferase 40 U/L (0-40); Albumin Level 3.7 g/dL (3.5-5.0); Anion Gap 11 (12-20); Aspartate Amino Transferase 28 U/L (5-37); Bilirubin Total 0.3 mg/dL (0.0-1.0); Blood Urea Nitrogen 17 mg/dL (9-16); Calcium 8.9 mg/dL (8.4-10.2); Carbon Dioxide 24 mmol/L (22-29); Chloride 108 mmol/L (96-108); Estimated Glomerular Filt Rate > 60; Glucose Random 128 mg/dL (60-115); Iron 95 mcg/dL (45-160); Percent Iron Saturation 34 % (15-50); Potassium 3.9 mmol/L (3.3-5.1); Sodium 139 mmol/L (135-145); Total Iron Binding Capacity 278 mcg/dL (228-428); Total Protein 7.7 g/dL (6.5-8.0); Unsaturated Iron Binding 183 ug/dL
[2024-08-05 18:38] LABS: Ferritin 96 ng/mL (20-250); TSH reflex Free T4 1.23 uIU/mL (0.32-4.0)
[2024-08-05 18:41] LABS: Folate 12.1 ng/mL (> or = 4.0); Vitamin B12 534 pg/mL (200-900)
[2024-08-05 18:47] LABS: Alkaline Phosphatase 106 U/L (39-117)
[2024-08-06 06:01] LABS: Estimated Average Glucose 157 mg/dL; Hemoglobin A1C 206.1609 umol/L; Hemoglobin A1c % 7.1 % (<6.0)
[2024-08-08 05:03] LABS: Amitriptyline, Serum 130 mcg/L; Nortriptyline, Serum 36 mcg/L; Total (Ami+Nor) 166 mcg/L (100-250)
[2024-08-10 21:53] LABS: Acetylcholine Receptor Binding <0.30 nmol/L
[2024-08-11 00:39] LABS: Acetylcholine Recept. Blocking <15 (<15)
[2024-08-11 15:24] LABS: Vitamin B1 15 nmol/L (8-30)
[2024-08-11 18:04] LABS: Acetylcholine Recep Modulating <1
[2024-08-12 15:19] LABS: Vitamin B6 6.8 ng/mL (2.1-21.7)
[2024-08-12 18:27] LABS: Methylmalonic Acid 129 nmol/L (69-390)
== END 2024-08-05 10:47 | disposition home or self-care (01) ==
LOC: HO.HKASLDS 10:46
PROVIDERS: PCP Internal Medicine; Visit Provider Nurse Practitioner Family
DX: C18.9 Malignant neoplasm of colon, unspecified (principal); H02.402 Unspecified ptosis of left eyelid; D64.9 Anemia, unspecified; E11.9 Type 2 diabetes mellitus without complications; R20.2 Paresthesia of skin; F41.9 Anxiety disorder, unspecified; F32.A Depression, unspecified; G47.01 Insomnia due to medical condition
CPT/HCPCS: 36415; 80053; 80335; 82607; 82728; 82746; 83036; 83540; 83921; 84207; 84425; 84443; 85025; 86041; 86042; 86043; 86366; 99212

== ENCOUNTER 2025-02-01 10:53 | Outpatient (AMB) | payer MEDICARE, SELFPAY ==
[2025-02-01 10:54] VITALS: BP 130/74; PULSE 86; O2SAT 96; BMI 33.7
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
--- OUTSIDE RECORDS SUMMARY | 2025-02-01 11:36 | XMS_ITS | Encounter Summary ---
Author Organization [facility] Address [address] [place] [address] Care Team Providers Care Manager Intelligence Name Role Phone Diana Oseguera MD Primary Care Provider [phone] Encounter Details Date Type Department Care Team Description 02/13/2023 Social Work [facility] [address] [place] [address] Casimiro Mack, [facility] Social History Tobacco Use Types Packs/Day Years [...] on filedocumented in this encounter Care Teams Manager Intelligence Relationship Specialty Start Date End Date Diana Oseguera MD PCP - General Internal Medicine 06/08/16 documented as of this encounter
--- OUTSIDE RECORDS SUMMARY | 2025-02-01 11:36 | XMS_ITS ---
Author Organization [address] [facility] Address [address] [place] [address] Phone Care Team Providers Care General Education Professor Name Role Phone Diana Oseguera MD Primary Care Provider [phone] Active Problems Problem Noted Date Diagnosed Date Postconcussion syndrome 12/28/2024 Overview (12/28/2024): Please see note December 28, 2024 COPD exacerbation (CMS/HCC V24, CMS/HCC V28) Cigarette smoker 06/10/2024 Chronic obstructive pulmonar y disease (CMS/HCC V24, CMS/HCC V28) 06/10/2024 Overview (06/10/2024): PFTs 09/09/08 Assessment & Plan (10/20/2024 10:26 AM EDT): Chemotherapy-induced neuropathy (CMS/HCC V24) Tobacco use 05/05/2024 Metastasis to lung (CMS/HCC V24, CMS/HCC V28) 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 Rectosigmoid cancer (CMS/HCC V24, CMS/HCC V28) 0 07/20/2022 Cancer Staging:Pathologic: pT2, pN1, cM1 - Signed by Roberto Degroot MD on 04/28/2024 Assessment & Plan (10/20/2024 10:26 AM EDT): Liver lesion 05/14/2022 Overview (03/24/2024): Incidental finding on CT scan 05/09/22. Splenic cyst 05/14/2022 Overview (03/24/2024): Pt with possible splenic cyst on 05/09/22. Incidental finding. Controlled type 2 diabetes m ellitus without complication, without long-term current use of insulin ([facility]/HCC V24, [facility]/HCC V28) 12/09/2020 Assessment & Plan (10/20/2024 10:26 AM EDT): Chronic pain of both knees 08/24/2020 Constipation 08/24/2020 Housing situation unstable 06/15/2020 Anxiety 02/16/2020 Pulmonary nodules 02/16/2020 Overview (03/24/2024): Status post wedge resection, 03/30/2020, follows with Dr. Austin Last Assessment & Plan: Patient has 2 subcentimeter pulmonary nodules in the left upper lobe. There were negative on the PET scan. Continue following in the lung cancer screening clinic. Insomnia 04/13/2019 Gastroesophageal reflux disease without esophagi tis 10/13/2018 Stage 3 severe COPD by GOLD classification ([facility] V24, [facility] V28) 10/13/2018 Overview (03/24/2024): Last Assessment & Plan: Mr. Mendoza has stage II COPD as per his latest pulmonary function test back in 2019 with an FEV1 53% predicted. He has been stable using triple therapy with Trelegy. I will continue with this medication. He ran out from [email or web address] a couple of days ago and he has wheezing today. I also will renew his nebulizer medications and supplies. I advised him to quit smoking but right now he says that he is to stress and is very difficult. He knows about the risks of continued smoking. I will do a new pulmonary function testing his next appointment in 6 months. Cardiomyopathy ([facility] V24, [facility] V28) 2018 Assessment & Plan (10/20/2024 10:26 AM EDT): Chronic low back pain 03/07/2017 Depression 03/02/2016 Obesity 03/02/2016 Hyperlipidemia 07/11/2012 Psoriasis 07/11/2012 Overview (03/24/2024): Been getting treated for 5 years with creams and shampoos, follows with [facility] Current Oncology Plans No current plan information found. Past Plans No past plan information found. Radiation Treatments * Treatment Site Started On Last Treated On Elapsed Days Fractions Complete Last Fraction Dose Given/Prescribed Total Dose Given/Prescribed Technique MICHAEL SBRT 05/11/20 24 05/13/20 24 2 3 of 3 1,800 cGy / 1,800 cGy 5,400 cGy / 5,400 cGy SBRT VMAT Resolved Problems Problem Noted Date Diagnosed Date Resolved Date Panic 02/16/2020 10/10/2024
--- OUTSIDE RECORDS SUMMARY | 2025-02-01 11:36 | XMS_ITS ---
Author Name [facility] Organization Unknown Care Team Organization Name Specialty Phone Email Start Date End Da crispin [facility] Oseguera Primary Care 05/01/2022 02/10/2024
== END 2025-02-01 12:02 | disposition home or self-care (01) ==
LOC: HO.HSMS 10:54
PROVIDERS: PCP Internal Medicine; Visit Provider Nurse Practitioner Family
DX: S06.0X1A Concussion with loss of consciousness of 30 minutes or less, initial encounter (principal); R42 Dizziness and giddiness; G44.329 Chronic post-traumatic headache, not intractable; G47.01 Insomnia due to medical condition; H02.402 Unspecified ptosis of left eyelid; R20.2 Paresthesia of skin; F41.9 Anxiety disorder, unspecified; F32.A Depression, unspecified
CPT/HCPCS: 99214

== ENCOUNTER → 2025-02-01 10:53 | Outpatient (BNVA) | payer OTHER, SELFPAY | PROVIDERS: PCP Internal Medicine; Visit Provider Nurse Practitioner Family | DX: R42 Dizziness and giddiness (principal); G47.01 Insomnia due to medical condition; H02.402 Unspecified ptosis of left eyelid; R20.2 Paresthesia of skin; F41.9 Anxiety disorder, unspecified; F32.A Depression, unspecified; F07.81 Postconcussional syndrome | CPT/HCPCS: 99212 ==

== ENCOUNTER 2025-03-15 11:18 | Outpatient (AMB) | payer MEDICARE, SELFPAY ==
--- OUTSIDE RECORDS SUMMARY | 2024-03-24 10:34 | XMS_ITS | Encounter Summary ---
Author Organization [facility] Address [address] [place] [address] Care Team Providers Care Camp Housekeeper Name Role Phone Diana Oseguera MD Primary Care Provider [phone] Encounter Details Date Type Department Care Team (Late st Contact Info) Description 03/24/2024 10:34 AM EDT Hospital Encounter TH HISTORIC ENCOUNTERS EASTERN CONVERSION ONLY Yvonne Bautista, DO [address] [place] [address] Social History Tobacco Use Types Packs/Day Years Used Date Smoking Tobacco: Former Cigarettes Q uit: 08/12/2024 Smokeless Tobacco: Never Comments:1 PPD Alcohol Use Standard Drinks/Week Comments No 0 (1 standard drink = 0.6 oz pur e alcohol) Interpersonal Safety Answer Date Record ed Physical Abuse 10/10/2024 Verbal Abuse 10/10/2024 Sex and Gender Information Value Date Recorded Sex Assigned at Male 07/10/2024 1:20 PM EST Legal Sex Male 4:35 AM EST Gender Identity Male 07/10/2024 1:20 PM EST Sexual Orientation Straight 07/10/2024 1: 20 PM EST 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 Since last visit he had biopsy of the lung. Reports he had mild pain and respiratory issues for theweek after the biopsy Also he has persistent neuropathy. As a result, he did sustain a fall and did strike his head. Notes some mild vision problems also past few weeks. No headache or new weakness. No dyspnea or cough currently. He has remained of cigarettes since last appointment one month ago. Oncologic history: --presented in May 2022 with reports of rectal bleeding for two months, weight loss and fatigue. -- colonoscopy which found a mass at the rectosigmoid junction which was biopsied and pathology wasconsistent with colonic adenocarcinoma. -- CT Abdomen which showed a possible liver lesion, but on follow up imaging ultrasound the lesion was not visible. He has a history of multiple pulmonary nodules and underwent a right upper lobe wedge resection on March 30, 2020 which was negative for carcinoma and showed necrotizing granulomas. He was previously seen by Dr. Barnard and Dr. Reynaga for this. Recent low dose CT chest earlier this year, did not show any evidence of concerning lung findings. -- Patient missed several appointments from May to July, but ultimately was started on total neoadjuvant therapy with chemo and then chemo radiation. Cycle 1 day 1 of FOLFOX was 08/27/2022. -- He completed 9 cycles of FOLFOX last 1 on 12/19/2022. Additional 3 cycles planned for December and January patient opted not to proceed any further due to significant neuropathy. 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 albuterol (PROVENTIL HFA;VENTOLIN HFA) 108 (90 Base) MCG/ACT inhaler, Inhale 2 puffs into the lungs every 6 (six) hours as needed for wheezing., Disp: , Rfl: ? amitriptyline (ELAVIL) 150 MG tablet, Take 1 tablet (150 mg total) by mouth every night at bedtime., Disp: , Rfl: ? loperamide (IMODIUM) 2 MG capsule, Take 1 capsule (2 mg total) by mouth every 6 (six) hours., Disp: 30 capsule, Rfl: 0 ? nicotine (NICODERM CQ) 21 MG/24HR, Place 1 patch onto the skin daily., Disp: 28 patch, Rfl: 0 Allergies Allergies Allergen Reactions ? Lyrica [Pregabalin] Swelling Neck swelling, sore throat and difficulty swallowing Physical Exam Vitals: 03/24/24 1116 BP: 125/74 BP Location: Left arm Pulse: 80 Temp: 98 ??F (36.7 ??C) TempSrc: Temporal SpO2: 99% Weight: 107.5 kg (237 lb) Performance Status: 0 General: well nourished male , seated comfortably HENT: No scleral icterus, pupils are equal Resp: Clear to auscultation bilaterally Cardio: regular rate Abdomen: soft non tender, Neuro: alert and oriented, normal speech Labs Imaging Assessment & Plan 64 year old male with cancer of the rectosigmoid colon. He is found to have an adenocarcinoma whichis HER-2 negative. He underwent definitive treatment with total neoadjuvant therapy ([facility]LY) therapy with FOLFOX chemotherapy then capecitabine/radiation therapy concurrently followed by surgical resection . On follow up initially no evidence of residual disease. However, recent routine surveillance imaging showed 1cm concerning lung nodule, Biopsy shows cancerof colonic origin. CEA remains normal level. 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 Refer to thoracic surgery and rad onc for evaluation in setting of oligo- metastatic disease (he is hesitant about surgery) Return here after those visits to discuss next steps. No indication for systemic therapy if no other evidence of disease. 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 Congratulated on quitting again. Recommend he remain off cigarettes. Sign: Yvonne Bautista DO Hematology/Oncology [facility] [phone] CC: Diana Freeman Dr., MD Encounter involves review of pathology, discussion with outside physician, documentation in medicalrecord, ordering additional testing, care of patient in longitudinal fashion, documented in this encounter Plan of Treatment Upcoming Encounters Date Type Department Care Team (Late st Contact Info) Description 03/15/2025 2:15 PM EDT Telemedicine Endocrinology - [address] [phone] Herbert Kemp MD [address] [place] [address] Arrived 03/16/2025 7:15 AM EDT Appointment [facility] CT Scan [address] [place] [phone] 03/17/2025 11:00 AM EDT Office Visit Adult Medicine [facility] [address] [place], [place] [phone] Ryann Campos NP [address] [place], [place] 03/19/2025 2:00 PM EDT Appointment [facility] Radiation Oncology [address] [place] [phone] Josh Hernandez MD [address] [place] [address] 04/06/2025 9:15 AM EDT Office Visit [facility] Hematology Oncology [address] [place] [phone] Yvonne Bautista DO [address] [place] [address] documented as of this encounter Procedures Procedure Name Priority Date/Time Associated Diagnosis Comments ..MISCELLANEOUS REFERENCE LAB TEST 03/24/2024 EXTERNAL CLINICAL LAB 03/24/2024 EXTERNAL CLINICAL LAB 03/24/2024 documented in this encounter Results * External clinical lab (03/24/2024) us Provider Onbase MD LAB BLOOD ORDERABLES Final Re sult * External clinical lab (03/24/2024) us Provider Onbase MD LAB BLOOD ORDERABLES Final Re sult * Miscellaneous reference lab test (03/24/2024) us Provider Onbase MD LAB BLOOD ORDERABLES Final Re sult documented in this encounter Visit Diagnoses Not on filedocumented in this encounter Additional Health Concerns Infection Onset Date Last Indicated Resolved Time Respiratory Rule-Out 10/07/2024 10/07/2024 025 1:52 PM EDT COVID-19 Rule-Out 10/07/2024 10/07/2024 10/07/2024 1:52 PM EDT documented as of this encounter Care Teams Camp Housekeeper Relationship Specialty Start Date End Date Diana Oseguera MD [address] [place] [phone] PCP - General Internal Medicine 12/27/14 documented as of this encounter
--- OUTSIDE RECORDS SUMMARY | 2024-03-24 11:00 | XMS_ITS | Encounter Summary ---
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 on file Not on file documented as of this encounter Plan of Treatment Upcoming Encounters Date Type Department Care Team (Late Contact Info) Description 03/15/2025 2:15 PM EDT Telemedicine Endocrinology - [address] [phone] Herbert Kemp MD [address] [place] [address] Arrived 03/16/2025 7:15 AM EDT Appointment [facility] CT Scan [address] [place] [phone] 03/17/2025 11:00 AM EDT Office Visit Adult [facility] [address] [place], [place] [phone] Ryann Campos NP [address] [place], [place] 03/19/2025 2:00 PM EDT Appointment [facility] Radiation Oncology [address] [place] [phone] Josh Hernandez MD [address] [place] [address] 04/06/2025 9:15 AM EDT Office Visit [facility] Hematology Oncology [address] [place] [phone] Yvonne Bautista, [address] [place] [address] documented as of this encounter Visit Diagnoses Not on filedocumented in this encounter Additional Health Concerns Infection Onset Date Last Indicated Resolved Time Respiratory Rule-Out 10/07/2024 10/07/2024 025 1:52 PM EDT COVID-19 Rule-Out 10/07/2024 10/07/2024 10/07/2024 1:52 PM EDT documented as of this encounter Care Teams Scarfer Operator Relationship Specialty Start Date End Date Diana Oseguera MD [address] [place] [address] PCP - General Internal Medicine 12/27/14 documented as of this encounter
--- OUTSIDE RECORDS SUMMARY | 2024-04-10 | XMS_ITS | Encounter Summary ---
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 on file documented as of this encounter Last Filed Vital Signs Vital Sign Reading Time Taken Comments Blood Pressure - - Pulse - - Temperature - - Respiratory Rate - - Oxygen Saturation - - Inhaled Oxygen Concentration - - Weight 108 kg (237 lb) 03/24/2024 11:16 AM EDT Height 175.3 cm (5' 9 ) 02/28/2024 10:46 AM EDT Body Mass Index 35 03/03/2024 9:19 AM EDT documented in this encounter Plan of Treatment Upcoming Encounters Date Type Department Care Team (Late Contact Info) Description 03/15/2025 2:15 PM EDT Telemedicine Endocrinology [address], [place] [phone] Herbert Kemp MD [address] [place] [address] Arrived 03/16/2025 7:[address] Scan [address] [place] [phone] 03/17/2025 11:00 AM EDT Office Visit Adult Medicine [facility] [place] [facility] [address] [place], [place] [phone] Ryann Campos NP [address] [place], [place] 03/19/2025 2:00 PM EDT Appointment Radiation Oncology [address] [place] [address] [phone] Josh Hernandez MD [address] [place] [address] 04/06/2025 9:15 AM EDT Office Visit Hematology Oncology [address] [place] [address] [phone] Yvonne Bautista DO [address] [place] [phone] documented as of this encounter Visit Diagnoses Not on filedocumented in this encounter Additional Health Concerns Infection Onset Date Last Indicated Resolved Time Respiratory Rule-Out 10/07/2024 10/07/2024 025 1:52 PM EDT COVID-19 Rule-Out 10/07/2024 10/07/2024 10/07/2024 1:52 PM EDT documented as of this encounter Care Teams Director Of Email Marketing Relationship Specialty Start Date End Date Diana Oseguera MD [address] [place] [address] PCP - General Internal Medicine 12/27/14 documented as of this encounter
--- OUTSIDE RECORDS SUMMARY | 2024-04-10 | XMS_ITS | Encounter Summary ---
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 CT Scan [address] [place] [address] [phone] 03/17/2025 11:00 AM EDT Office Visit [place] [facility] [address] [place], [place] [phone] Ryann Campos NP [address] [place], [place] 03/19/2025 2:[address] [facility] Radiation Oncology [address] [place] [phone] Josh Hernandez MD [address] [place] [address] 04/06/2025 9:15 AM EDT Office Visit [facility] Hematology Oncology [address] [place] [address] [phone] Yvonne Bautista DO [address] [place] [address] documented as of this encounter Visit Diagnoses Not on filedocumented in this encounter Additional Health Concerns Infection Onset Date Last Indicated Resolved Time Respiratory Rule-Out 10/07/2024 10/07/2024 025 1:52 PM EDT COVID-19 Rule-Out 10/07/2024 10/07/2024 10/07/2024 1:52 PM EDT documented as of this encounter Care Teams Molder Closed Molds Relationship Specialty Start Date End Date Diana Oseguera MD [address] [place] [address] PCP - General Internal Medicine 12/27/14 documented as of this encounter
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
[2025-03-15 11:23] VITALS: BP 120/74; PULSE 78; O2SAT 95; BMI 34.8
--- OUTSIDE RECORDS SUMMARY | 2025-03-15 13:58 | XMS_ITS ---
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 Splenic cyst 05/14/2022 Overview (03/24/2024): Pt with possible splenic cyst on 05/09/22. Incidental finding. Controlled type 2 diabetes m ellitus without complication, without long-term current use of insulin ([facility]/HCC V24, [facility]/HCC V28) 12/09/2020 Assessment & Plan (10/20/2024 10:26 [...] Stage 3 severe COPD by GOLD classification ([facility] V24, [facility] V28) 10/13/2018 Overview (03/24/2024): Last Assessment & Plan: Mr. Mendoza has stage II COPD as per his latest pulmonary function test back in 2019 with an FEV1 53% predicted. He has been stable using triple therapy with Trelegy. I will continue with this medication. He ran out from Debte[place] a couple of days ago and he has wheezing today. I also will renew his nebulizer medications and supplies. I advised him to quit smoking but right now he says that he is to stress and is very difficult. He knows about the risks of continued smoking. I will do a new pulmonary function testing his next appointment in 6 months. Cardiomyopathy ([facility] V24, [facility] V28) 2018 Assessment & Plan (10/20/2024 10:26 AM EDT): Chronic low back pain 03/07/2017 Depression 03/02/2016 Obesity 03/02/2016 Hyperlipidemia 07/11/2012 Psoriasis 07/11/2012 Overview (03/24/2024): Been getting treated for 5 years with creams and shampoos, follows with [facility] Current Oncology Plans No current plan [...]
--- OUTSIDE RECORDS SUMMARY | 2025-03-15 13:58 | XMS_ITS | Clinical Summary ---
Author Organization [facility] Address [address] [place] [address] Phone Care Team Providers Care Registered Nurse Name Role Phone Diana Oseguera MD Primary Care Provider [phone] Allergies Active Allergy Reactions Criticality Noted Date Comments Pregabalin Swelling Medium 02/03/2024 Neck swelling, sore throat and difficulty swallowing Shellfish Containing Products Nausea And Vomiting 04/28/2024 Medications DULoxetine (CYMBALTA) [address] capsule Take 1 capsule (20 mg total) by mouth 1 (one) time each day. for 30 days 04/20/20 24 Active albuterol HFA (PROAIR HFA ; PROVENTIL HFA ; VENTOLIN HFA) 90 mcg/actuation inhaler Inhale 2 puffs by mouth every 6 hours as needed. Active amitriptyline (ELAVIL) 150 mg tablet Take 1 tablet (150 mg total) by mouth at bedtime. Active ipratropium-albu teroL (DUONEB) 0.5-2.5 mg/3 mL nebulizer solution Take 3 mL by nebulization every 6 (six) hours. 360 mL 06/10/20 24 025 Active albuterol 2.5 mg /3 mL (0.083 %) nebulizer solutionIndicati ons:Chronic obstructive pulmonary disease, unspecified COPD type (CMS/HCC V24, CMS/HCC V28),COPD exacerbation (CMS/HCC V24, CMS/HCC V28) Take 3 mL (2.5 mg total) by nebulization every 6 (six) hours if needed for wheezing. 360 mL 11 06/22/20 025 Active zolpidem (AMBIEN) 5 mg tablet Take 1 tablet (5 mg total) by mouth at bedtime as needed. 09/02/19 25 Active Skyrizi 150 mg/mL pen injector Inject 1 mL into the shoulder, thigh, or buttocks every 3 (three) months. 09/15/19 25 Active azithromycin (ZITHROMAX) 250 mg tablet Take 1 tablet (250 mg total) by mouth 1 (one) time each day. 4 tablet 10/12/19 25 Active Additional Information Patient not taking.Reported on 01/29/2025 insulin glargine (LANTUS SoloStar) 100 unit/mL (3 mL) injection pen Inject 10 Units under the skin at bedtime. 15 mL 12/29/19 25 026 Active pen needle, diabetic (BD Ultra-Fine Payal Pen Needle) 32 gauge x 5/32 needle USE WITH INSULIN PEN ONCE NIGHTLY 100 each 1 12/31/19 25 Active pen needle, diabetic (Pen Needle) 31 gauge x 5/16 needle USE WITH INSULIN PEN ONCE NIGHTLY 100 each 1 12/31/19 25 Active pantoprazole (PROTONIX) 40 mg EC tablet TAKE 1 TABLET BY MOUTH ONCE A DAY DO NOT CRUSH, CHEW, OR SPLIT 90 tablet 1 01/05/20 25 Active OneTouch Ultra Test test stripIndications :Poorly controlled diabetes mellitus ([facility] V24, [facility] V28) USE TO TEST FOUR TIMES DAILY 100 each 3 01/19/20 25 026 Active fluticasone-umec lidinium-vilante rol (Trelegy Ellipta) 100-62.5-25 mcg inhaler Inhale 1 puff (100 mcg total) by mouth 1 (one) time each day. 3 each 3 01/27/20 25 026 Active blood-glucose sensor (FreeStyle Bony 3 Plus Sensor) deviceIndication s:Type 2 diabetes mellitus with other specified complication, unspecified whether exterminator helper termite insulin use ([facility] V24, [facility] V28) Box = Kit = EA, change sensor every 15 days 2 kit 11 01/30/20 25 Active blood-glucose,re ceiver,cont (FreeStyle Bony 3 [place]) miscIndications: Type 2 diabetes mellitus with other specified complication, unspecified whether jail insulin use ([facility] V24, [facility] V28) Check sugars regularly 1 each 01/30/20 25 Active LORazepam (ATIVAN) 0.5 mg tablet TAKE 1 TABLET (0.5 MG TOTAL) BY MOUTH DAILY NEEDED FOR ANXIETY MAX DAILY AMOUNT: 0.5 MG 10 tablet 02/02/20 25 Active metFORMIN (GLUCOPHAGE) 500 mg tablet TAKE 2 TABLETS BY MOUTH TWICE A DAY WITH FOOD 360 tablet 1 02/10/20 25 Active lancets (OneTouch Delica Plus Lancet) 33 gaugeIndications :Poorly controlled diabetes mellitus ([facility] V24, [facility] V28) USE TO TEST TWICE DAILY 200 each 1 03/12/20 25 026 Active lancets (OneTouch Delica Plus Lancet) 33 gaugeIndications :Poorly controlled diabetes mellitus ([facility] V24, [facility] V28) USE TO TEST ONCE DAILY 100 each 1 01/15/20 25 025 Discontin ued(Reord er) Active Problems Problem Noted Date Diagnosed Date Postconcussion syndrome 12/28/2024 Overview (12/28/2024): Please see note December 28, 2024 COPD exacerbation ([facility] V24, [facility] V28) Cigarette smoker 06/10/2024 Chronic obstructive pulmonar y disease ([facility] V24, [facility] V28) 06/10/2024 Overview (06/10/2024): PFTs 09/09/08 Assessment & Plan (10/20/2024 10:26 AM EDT): Chemotherapy-induced neuropathy ([facility] V24) Tobacco use 05/05/2024 Metastasis to lung ([facility] V24, 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 V24, [facility] V28) 04/28/2024 Secondary cancer of lung ([facility] V24, [facility] V 28) 03/27/2024 Overview (06/10/2024): Last Assessment [...] complication, without long-term current use of insulin (CMS/HCC V24, CMS/HCC V28) 12/09/2020 Assessment & Plan (10/20/2024 10:26 [...] Stage 3 severe COPD by GOLD classification ([facility] V24, [facility] V28) 10/13/2018 Overview (03/24/2024): Last Assessment & Plan: Mr. Mendoza has stage II COPD as per his latest pulmonary function test back in 2019 with an FEV1 53% predicted. He has been stable using triple therapy with Trelegy. I will continue with this medication. He ran out from [employer] a couple of days ago and he has wheezing today. I also will renew his nebulizer medications and supplies. I advised him to quit smoking but right now he says that he is to stress and is very difficult. He knows about the risks of continued smoking. I will do a new pulmonary function testing his next appointment in 6 months. Cardiomyopathy ([facility] V24, [facility] V28) 2018 Assessment & Plan (10/20/2024 10:26 AM EDT): Chronic low back pain 03/07/2017 Depression 03/02/2016 Obesity 03/02/2016 Hyperlipidemia 07/11/2012 Psoriasis 07/11/2012 Overview (03/24/2024): Been getting treated for 5 years with creams and shampoos, follows with [facility] Resolved Problems Problem Noted Date Diagnosed Date Resolved Date Panic 02/16/2020 10/10/2024 Encounters Date Type Department Care Team Description 03/09/2025 Telephone Lung Screening Program [facility] [address] [facility] [address] [place] [address] Michaela Gonzalez MA 03/05/[address] [facility] [address] [place] [address] Diana Oseguera MD 03/01/2025 Telephone [facility] Hematology Oncology [address] [place] [address] LilyYvonneDO 02/26/2025 1:14 PM EDT - 02/26/2025 11:59 PM EDT Hospital Encounter [facility] Xray [address] [place] [phone] History of bacterial pneumonia Discharge Disposition: Home or Self Care 02/18/2025 7:25 AM EDT - 02/18/2025 11:59 PM EDT Hospital Encounter [facility] MRI [address] [place] [phone] Dizziness Discharge Disposition: Home or Self Care 02/16/2025 Telephone Lung Screening Program - [place] [address] [phone] Michaela Gonzalez MA 02/11/2025 Telephone Adult Medicine [address] [phone] Diana Oseguera MD 01/29/2025 10:00 AM EDT Office Visit Endocrinology [address] [phone] Herbert Kemp MD Type 2 diabetes mellitus with other specified complication, unspecified whether exterminator helper termite insulin use (CMS/HCC V24, CMS/HCC V28) (Primary Dx) 01/29/2025 Telephone Endocrinology [address] [phone] Herbert Kemp MD 01/14/2025 11:15 AM EDT Office Visit Adult Medicine [address] [phone] Diana Oseguera MD Poorly controlled diabetes mellitus (CMS/HCC V24, CMS/HCC V28) (Primary Dx); Post concussion syndrome 01/07/2025 Telephone Adult Medicine [address] [phone] Edie Norwood MA 12/28/2024 10:00 AM EDT Consult Adult Medicine [address] [phone] Diana Oseguera MD Preop cardiovascular exam (Primary Dx); Controlled type 2 diabetes mellitus without complication, without long-term current use of insulin ([facility] V24, [facility] V28); Chemotherapy-induced neuropathy ([facility] V24); Accidental fall, subsequent encounter; Postconcussion syndrome 12/22/2024 9:15 AM EDT Office Visit [facility] Hematology Oncology [address] [place] [address] Yvonne Bautista, Rectosigmoid cancer ([facility] V24, [facility] V28) (Primary Dx); Chemotherapy-induced neuropathy ([facility] V24); Moderate tobacco use disorder, in early remission from Last 3 Months Immunizations Name Administration Dates Next Due Influenza trivalent, with pr eservative (Fluzone; Afluria) 6mo and older 04/12/2011,03/25/2009 PPD Test 03/13/2013 [employer] SARS-CoV-2 COVID-19, mRNA, LNP-S, preservative free 09/15/2020 Pneumococcal polysaccharide 23 valent (Pneumovax 23) 2yo and older 08/18/2012 Tdap Tetanus diptheria acell ular pertussis (Boostrix; Adacel) 7yo and older 04/12/2011 Surgical History Surgery Date Site/Laterality Comments APPENDECTOMY PROCEDURE: HISTORICAL APPENDECTOMY CIRCUMCISION, NON- PROCEDURE: CIRCUMCISION, NOT OTHER SURGICAL HISTORY PROCEDURE: WI ARTHRD ANT INTERBODY MIN DSC LUMBAR; COMMENT: L4-5 OTHER SURGICAL HISTORY 08/22/2023 PROCEDURE: HISTORY OTHER; COMMENT: closure of loop ileostomy IR PORT A CATH PLACEMENT Bilateral Medical History Medical History Date Comments Psoriasis 07/11/2012 DX:Psoriasis Previous back surgery 07/11/2012 DX:Previou s back surgery COPD (chronic obstructive pu lmonary disease) ([facility] V24, [facility] V28) 07/11/2012 DX:COPD (chronic o bstructive pulmonary disease) ([facility]) Historical Medical DX 07/11/2012 DX:Hyperli pidemia LDL goal < 130 GERD (gastroesophageal reflux disease) 4 DX:GERD (gastroesophageal reflux disease) Obesity DX:Obesity Ex-smoker DX:Ex-smoker Anxiety DX:Anxiety Depression DX:Depression Insomnia DX:Insomnia Abnormal screening CT of chest D X:Abnormal screening CT of chest Rectal bleeding DX:Rectal bleedi ng Abdominal pain DX:Abdominal georgiana n Liver lesion DX:Liver lesion Tobacco use DX:Tobacco use Cancer of rectosigmoid (colo n) ([facility] V24, [facility] V28) 07/20/2022 DX:Cancer of rectosigmoid ( colon) (HCC) Splenic cyst 05/14/2022 DX:Splenic cyst; COMMENT: Pt with possible splenic cyst on 05/09/22. Incidental finding. Constipation 08/24/2020 DX:Constipation Gastroesophageal reflux dise ase without esophagitis 10/13/2018 DX:Gastroesophageal reflux d isease without esophagitis Controlled type 2 diabetes m ellitus without complication, without long-term current use of insulin ([facility] V24, [facility] V28) 12/09/2020 DX:Controlled type 2 diabet es mellitus without complication, without long-term current use of insulin (HCC) Cardiomyopathy ([facility] V24, [facility] V28) 07/28/2018 DX:Cardiomyopathy (HCC) Secondary cancer of lung ( S/[facility] V24, [facility] V28) 03/27/2024 DX:Secondary cancer of lung (HCC) Chronic left-sided low back pain without sciatica 03/07/2017 DX:Chronic left-sided low ba ck pain without sciatica Chronic pain of both knees 08/24/2020 DX:Ch ronic pain of both knees Stage 3 severe COPD by GOLD classification ([facility] V24, 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 Not on file Not on file Obstetrics History Last Filed Vital Signs Vital Sign Reading Time Taken Comments Blood Pressure 135/71 01/29/2025 9:42 AM EDT Pulse 75 01/29/2025 9:42 AM EDT Temperature 36.7 C (98 F) 01/14/2025 11:05 AM EDT Respiratory Rate 14 01/29/2025 9:42 AM EDT Oxygen Saturation 99% 12/22/2024 9:08 AM EDT Inhaled Oxygen Concentration - - Weight 105 kg (232 lb) 01/29/2025 9:42 AM EDT Height 175.3 cm (5' 9 ) 01/29/2025 9:42 AM EDT Body Mass Index 34.26 01/29/2025 9:42 AM EDT Plan of Treatment Upcoming Encounters Date Type Department Care Team (Late st Contact Info) Description 03/15/2025 2:15 PM EDT Telemedicine Endocrinology - [place] [address] [place], [place] [phone] Herbert Kemp MD [address] [place] [address] Arrived 03/16/2025 7:15 AM EDT Appointment [facility] CT Scan [address] [place] [phone] 03/17/2025 11:00 AM EDT Office Visit Adult Medicine [place] [facility] [place] [address] [place] [address] Ryann Campos NP [address] [place], [place] 03/19/2025 2:00 PM EDT Appointment [facility] Radiation Oncology [address] [place] [phone] Josh Hernandez MD [address] [place] [address] 04/06/2025 9:15 AM EDT Office Visit [facility] Hematology Oncology [address] [place] [phone] Yvonne Bautista DO [address] [place] [address] Health Maintenance Due Date Last Done Comments Zoster Vaccines (1 of 2) 02/08/1979 Pneumococcal Vaccine: 50+ Years (2 of 2 - PCV) 08/18/2013 08/18/2012 RSV Immunization Adult Patients (1 - Risk 60-74 years 1-dose series) 2020 DTaP,Tdap,and Td Vaccines (2 - Td or Tdap) 04/12/2021 04/12/2011 Abdominal Aortic Aneurysm (AAA) Screen 06/01/2022 Colorectal Cancer Screening: Stool Based Tests (FOBT/FIT) 06/01/2022 Medicare Annual Wellness Visit 06/01/2022 Social Influencers of Health Screening 06/01/2022 Lung Cancer Screening (Low Dose CT) 08/05/2023 08/05/2022, 07/24/2021 Depression Screening 06/24/2024 COVID-19 Vaccine ( season) 2025 11/15/2020, 10/25/2020, 09/15/2020 Influenza Vaccine (#1) 2025 04/12/2011, 2008 Diabetes: Blood Sugar Control Test (HGBA1C) 06/26/2025 12/24/2024, 10/10/2024, 09/05/2023 Falls Risk Assessment 10/10/2025 10/10/2024 Diabetes: Annual Retina Eye Exam 11/26/2025 11/26/2024 Diabetes: Annual Urine Albumin-Creatinine Ratio (uACR) 12/24/2025 12/24/2024, 09/05/2023 Diabetes: Annual Foot Exam 01/29/2026 01/29/2025, Diabetes: Annual GFR (Glomerular Filtration Rate) 02/11/2026 02/11/2025, 12/24/2024, 12/07/2024, Additional history exists Cholesterol Screening (Lipid Panel) 12/24/2029 12/24/2024, 09/05/2023 Hepatitis C Screening Completed 08/04/2014 HIB Vaccines Aged Out No longer eligi ble based on patient's age to complete this topic HPV Vaccines Aged Out No longer eligi ble based on patient's age to complete this topic Hepatitis A Vaccines Aged Out No long er eligible [...] age to complete this topic Meningococcal B Vaccine Aged Out No l onger eligible based on patient's age to complete this topic RSV Immunization Patients Under 20 months Aged Out No longer eligible based on patient's age to complete this topic Varicella Vaccines Aged Out No longer eligible based on patient's age to complete this topic Procedures Procedure Name Priority Date/Time Associated Diagnosis Comments XR CHEST 2 VIEWS Routine 02/26/2025 1:19 PM EDT History of bacterial pneumonia MR BRAIN WO AND W CONTRAST Routine 02/18/2025 8:54 AM EDT Dizziness INTERFERON GAMMA INTERPRETATION Routine 02/11/2025 11:48 AM EDT Drug therapy INTERFERON GAMMA ANTIGEN 2 Routine 02/11/2025 11:48 AM EDT Drug therapy INTERFERON GAMMA ANTIGEN 1 Routine 02/11/2025 11:48 AM EDT Drug therapy INTERFERON GAMMA MITOGEN Routine 02/11/2025 11:48 AM EDT Drug therapy INTERFERON GAMMA NIL Routine 02/11/2025 11:48 AM EDT Drug therapy CBC WITH AUTO DIFFERENTIAL Routine 02/11/2025 11:48 AM EDT Drug therapy INTERFERON GAMMA FOR TB, QUALITATIVE Routine 02/11/2025 11:48 AM EDT Drug therapy COMPREHENSIVE METABOLIC PANEL Routine 02/11/2025 11:48 AM EDT Drug therapy CBC AND DIFFERENTIAL Routine 02/11/2025 11:48 AM EDT Drug therapy POC GLUCOSE Routine 01/14/2025 11:05 AM EDT Poorly controlled diabetes mellitus (CMS/HCC V24, CMS/HCC V28) ECG 12-LEAD Routine 12/28/2024 1:49 PM EDT Preop cardiovascular exam POC GLUCOSE Routine 12/28/2024 9:19 AM EDT Controlled type 2 diabetes mellitus without complication, without long-term current use of insulin (CMS/[facility] V24, CMS/HCC V28) MICROALBUMIN CREATININE URINE RATIO Routine 12/24/2024 9:15 AM EDT Pre-op examination Controlled type 2 diabetes mellitus without complication, without long-term current use of insulin (CMS/HCC V24, CMS/HCC V28) Stage 3 chronic kidney disease, unspecified whether stage 3a or 3b CKD (CMS/HCC V24, CMS/HCC V28) HEMOGLOBIN A1C Routine 12/24/2024 9:15 AM EDT Controlled type 2 diabetes mellitus without complication, without long-term current use of insulin (CMS/[facility] V24, CMS/HCC V28) LIPID PANEL WITH REFLEX TO DIRECT LDL Routine 12/24/2024 9:15 AM EDT Controlled type 2 diabetes mellitus without complication, without long-term current use of insulin (CMS/[facility] V24, CMS/HCC V28) COMPREHENSIVE METABOLIC PANEL Routine 12/24/2024 9:15 AM EDT Pre-op examination DIABETES FOOT EXAM Routine 10/07/2023 CT LUNG SCREENING LOW DOSE Routine 08/05/2022 12:47 PM EST Personal history of nicotine dependence HEPATITIS C SCREENING Routine 08/04/2014 from Last 3 Months or Most Recently Relevant to Health Maintenance Results * XR Chest 2 Views (02/26/2025 1:19 PM EDT) Anatomical Region Laterality Modality Body Radiographic Shira ging 03/01/2025 11:3 7 AM EDT Impressions 03/01/2025 11:39 AM EDT No acute pulmonary disease. Resolved bibasilar discoid atelectasis since 10/10/2024. Code 09737 -------- FINAL REPORT -------- Dictated By: Soren Torres Dictated Date: 03/01/2025 11:37 ET Assigned Physician: Soren Torres Reviewed and Electronically Signed By: Soren Torres Signed Date: 03/01/2025 11:39 ET Workstation ID: [id number] Transcribed By: Self Edit Transcribed Date: 03/01/2025 11:37 ET Narrative 03/01/2025 11:39 AM EDT HISTORY: The patient is a 65-year-old male with provided diagnosis of pneumonia . Information provided with prior studies indicates that the patient has a history of lung carcinoma. FINDINGS: PA and lateral radiographs of the chest demonstrate normal appearance of the bony structures. The cardiac and mediastinal contours are within normal limits. Surgical sutures are again seen medially in the right upper lung The lungs and costophrenic angles are clear. Bibasilar discoid atelectasis seen on the prior study of 10/10/2024 has resolved. Procedure Note Soren Torres MD - 03/01/2025 HISTORY: The patient is a 65-year-old male with provided diagnosis of pneumonia . Information provided with prior studies indicates that thepatient has a history of lung carcinoma. FINDINGS: PA and lateral radiographs of the chest demonstrate normalappearance of the bony structures. The cardiac and mediastinal contoursare within normal limits. Surgical sutures are again seen medially in theright upper lung The lungs and costophrenic angles are clear. Bibasilardiscoid atelectasis seen on the prior study of 10/10/2024 has resolved. IMPRESSION: No acute pulmonary disease. Resolved bibasilar discoid atelectasis since10/10/2024. Code 15791 -------- FINAL REPORT -------- Dictated By: Soren Torres Dictated Date: 03/01/2025 11:37 ET Assigned Physician: Soren Torres Reviewed and Electronically Signed By: Soren Torres Signed Date: 03/01/2025 11:39 ET Workstation ID: [id number] Transcribed By: Self Edit Transcribed Date: 03/01/2025 11:37 ET Diana Oseguera MD IMG XR PROCEDURES Final Result * MR Brain wo and w Contrast (02/18/2025 8:54 AM EDT) Anatomical Region Laterality Modality Head and Neck Magnetic Resonan ce 02/19/2025 8:07 AM EDT Impressions 02/19/2025 8:45 AM EDT 1. No acute intracranial findings. Mild chronic microvascular ischemic changes in the supratentorial white matter. 2. A vascular loop projects into the right IAC. This is a common finding in asymptomatic patients but requires correlation with the patient's clinical presentation. Dedicated imaging of the IACs is otherwise unremarkable. 3. 3 mm pituitary cyst. This could represent a small pars intermedia cyst or a small cystic microadenoma. -------- FINAL REPORT -------- Dictated By: Desean Ernandez Dictated Date: 02/19/2025 08:07 ET Assigned Physician: Desean Ernandez Reviewed and Electronically Signed By: Desean Ernandez Signed Date: 02/19/2025 08:45 ET Workstation ID: [id number] Transcribed By: Self Edit Transcribed Date: 02/19/2025 08:07 ET Narrative 02/19/2025 8:45 AM EDT PROCEDURE: Contrast-enhanced MRI of the brain and IACs. HISTORY: Dizziness. TECHNIQUE: Multiplanar multisequence MRI of the brain with and without intravenous contrast. Dedicated thin section pre and postcontrast images of the IACs were also obtained. IV CONTRAST DOSE: 20 mL intravenous Dotarem from a 20 mL vial with 0 mL discarded. COMPARISON: FINDINGS: BRAIN: No diffusion abnormality. No mass or extra-axial fluid collection. No hydrocephalus. The major intracranial flow voids are preserved. Age commensurate ventricles and sulci. No abnormal enhancement. Scattered foci of T2 prolongation in the supratentorial white matter, nonspecific but likely sequela of mild chronic microvascular ischemic disease in a patient of this age. Dedicated thin section images through the internal auditory canals demonstrates a normal appearance of the 7th and 8th cranial nerve complexes, cochlea, vestibule, and semicircular canals. A small vascular loop projects into the right IAC. There is a 3 mm cystic lesion in the right superior pituitary gland. ORBITS: Normal. SINUSES/MASTOIDS: Mild mucosal thickening in the ethmoid air cells and right greater than left maxillary antrum. Minimal mucosal thickening in the sphenoids. CALVARIUM: Normal. OTHER: The visualized skull base soft tissues are normal. Mild degenerative changes of the visualized cervical spine. Procedure Note Desean Ernandez MD - 02/19/2025 PROCEDURE: Contrast-enhanced MRI of the brain and IACs. HISTORY: Dizziness. TECHNIQUE: Multiplanar multisequence MRI of the brain with and withoutintravenous contrast. Dedicated thin section pre and postcontrast imagesof the IACs were also obtained. IV CONTRAST DOSE: 20 mL intravenous Dotarem from a 20 mL vial with 0 mLdiscarded. COMPARISON: FINDINGS: BRAIN: No diffusion abnormality. No mass or extra-axial fluid collection.No hydrocephalus. The major intracranial flow voids are preserved. Agecommensurate ventricles and sulci. No abnormal enhancement. Scatteredfoci of T2 prolongation in the supratentorial white matter, nonspecificbut likely sequela of mild chronic microvascular ischemic disease in apatient of this age. Dedicated thin section images through the internal auditory canalsdemonstrates a normal appearance of the 7th and 8th cranial nervecomplexes, cochlea, vestibule, and semicircular canals. A small vascularloop projects into the right IAC. There is a 3 mm cystic lesion in the right superior pituitary gland. ORBITS: Normal. SINUSES/MASTOIDS: Mild mucosal thickening in the ethmoid air cells andright greater than left maxillary antrum. Minimal mucosal thickening inthe sphenoids. CALVARIUM: Normal. OTHER: The visualized skull base soft tissues are normal. Milddegenerative changes of the visualized cervical spine. IMPRESSION: 1. No acute intracranial findings. Mild chronic microvascular ischemicchanges in the supratentorial white matter. 2. A vascular loop projects into the right IAC. This is a common findingin asymptomatic patients but requires correlation with the patient'sclinical presentation. Dedicated imaging of the IACs is otherwiseunremarkable. 3. 3 mm pituitary cyst. This could represent a small pars intermediacyst or a small cystic microadenoma. 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 IMG MRI PROCEDURES Final Result * Interferon gamma interpretation (02/11/2025 11:48 AM EDT) Quantiferon Plus Interpretation Negative Negative LAB CHEMISTRY METHOD 02/13/2025 10:[address] [facility] Blood Venous blood specimen / Unknown Venipuncture / Unknown 02/11/2025 11:48 AM EDT 02/11/2025 2:40 PM EDT Shweta Tim MD LAB BLOOD ORDERABLES Final Resul t [facility] [address] [place] [address], * Interferon gamma antigen 2 (02/11/2025 11:48 AM EDT) Blood Venous blood specimen / Unknown Venipuncture / Unknown 02/11/2025 11:48 AM EDT 02/11/2025 2:40 PM EDT us Shweta Tim MD LAB BLOOD ORDERABLES Final Resul t [facility] [address] [place] [address], [place] [phone] * Interferon gamma antigen 1 (02/11/2025 11:48 AM EDT) Blood Venous blood specimen / Unknown Venipuncture / Unknown 02/11/2025 11:48 AM EDT 02/11/2025 2:40 PM EDT Shweta Tim MD LAB BLOOD ORDERABLES Final Resul t Performing Organization Address City/[facility] Co de Phone Number [facility] [address] [place] [address], [place] [phone] * Interferon gamma mitogen (02/11/2025 11:48 AM EDT) Blood Venous blood specimen / Unknown Venipuncture / Unknown 02/11/2025 11:48 AM EDT 02/11/2025 2:40 PM EDT Shweta Tim MD LAB BLOOD ORDERABLES Final Resul t Performing Organization Address [facility] de Phone Number [facility] [address] [place] [address], [place] [phone] * Interferon gamma NIL (02/11/2025 11:48 AM EDT) Blood Venous blood specimen / Unknown Venipuncture / Unknown 02/11/2025 11:48 AM EDT 02/11/2025 2:40 PM EDT us Shweta Tim MD LAB BLOOD ORDERABLES Final Resul t Performing Organization Address [facility] de Phone Number [facility] [address] [place] [address], [place] [phone] * (ABNORMAL) CBC auto differential (02/11/2025 11:48 AM EDT) [facility] WBC 5.7 4.8 - 10.8 [facility] LAB HEMETOLOGY METHOD 02/11/2025 2:[address] [facility] RBC 4.60 4.50 - 5.50 M/mcL LAB HEMETOLOGY METHOD 02/11/2025 2:[address] [facility] Hemoglobin 13.4(L) 13.5 - 17.5 g/dL LAB HEMETOLOGY METHOD [facility]25 [facility] Hematocrit 41.7(L) 42.0 - 54.0 % LAB HEMETOLOGY METHOD 02/11/2025 2:53 [facility] MCV 91.4 79.0 - 98.0 FL LAB HEMETOLOGY METHOD 02/11/2025 2:53 PM [facility] MCH 29.4 27.0 - 32.0 pcg LAB HEMETOLOGY METHOD 02/11/2025 2:53 PM [facility] MCHC 32.1 32.0 - 37.0 g/dL LAB HEMETOLOGY METHOD 02/11/2025 2:53 PM [facility] RDW 13.7 11.0 - 15.0 % LAB HEMETOLOGY METHOD 02/11/2025 2:53 PM [facility] Platelets 230 130 - 400 K/mcL LAB HEMETOLOGY METHOD 02/11/2025 2:53 PM [facility] MPV 11.1(H) 7.0 - 11.0 FL LAB HEMETOLOGY METHOD 02/11/2025 2:53 PM [facility] NRBC 0.0 <1.0 % LAB HEMETOLOGY METHOD 02/11/2025 2:53 PM [facility] NRBC Absolute 0.00 <0.10 K/mcL LAB HEMETOLOGY METHOD 02/11/2025 2:53 PM [facility] Neutrophils Relative 56.0 % LAB HEMETOLOGY METHOD 02/11/2025 2:53 PM [facility] Lymphocytes Relative 28.5 % LAB HEMETOLOGY METHOD 02/11/2025 2:[address] [facility] Monocytes Relative 8.8 % LAB HEMETOLOGY METHOD 02/11/2025 2:[address] [facility] Eosinophils Relative 4.9 % LAB HEMETOLOGY METHOD 02/11/2025 2:[address] [facility] Basophils Relative 0.9 % LAB HEMETOLOGY METHOD 02/11/2025 2:[address] [facility] Immature Granulocytes Relative 0.9 % LAB HEMETOLOGY METHOD 02/11/2025 2:[address] [facility] Neutrophils Absolute 3.19 1.50 - 7.00 K/mcL LAB HEMETOLOGY METHOD 02/11/2025 2:53 [facility] Lymphocytes Absolute 1.62 1.00 - 5.00 K/mcL LAB HEMETOLOGY METHOD 02/11/2025 2:[address] [facility] Monocytes Absolute 0.50 0.20 - 1.00 K/mcL LAB HEMETOLOGY METHOD 02/11/2025 2:[address] [facility] Eosinophils Absolute 0.28 0.00 - 0.50 K/mcL LAB HEMETOLOGY METHOD 02/11/2025 2:[address] [facility] Basophils Absolute 0.05 0.00 - 0.20 K/mcL LAB HEMETOLOGY METHOD 02/11/2025 2:[address] [facility] Immature Granulocytes Absolute 0.05(H) 0.00 - 0.03 K/mcL LAB HEMETOLOGY METHOD 02/11/2025 2:53 PM [facility] Blood Venous blood specimen / Unknown Venipuncture / Unknown 02/11/2025 11:48 AM EDT 02/11/2025 2:41 PM EDT Shweta Tim MD LAB BLOOD ORDERABLES Final Resul t [facility] [address] [place] [address], * (ABNORMAL) Comprehensive metabolic panel (02/11/2025 11:48 AM EDT) Only the most recent of2 resultswithin the time period is included. Sodium 141 133 - 145 mmol/L LAB CHEMISTRY METHOD 02/11/2025 3:[address] [facility] Potassium 4.2 3.5 - 5.5 mmol/L LAB CHEMISTRY METHOD 02/11/2025 3:57 PM [facility] Chloride 106 96 - 110 mmol/L LAB CHEMISTRY METHOD 02/11/2025 3:57 PM [facility] CO2 30 21 - 32 mmol/L LAB CHEMISTRY METHOD 02/11/2025 3:57 PM [facility] Anion Gap 5 3 - 11 LAB CHEMISTRY METHOD 02/11/2025 3:57 PM [facility] Glucose 112(H) 70 - 100 mg/dL LAB CHEMISTRY METHOD 02/11/2025 3:57 PM [facility] BUN 14 5 - 25 mg/dL LAB CHEMISTRY METHOD 02/11/2025 3:57 PM [facility] Creatinine 1.09 0.70 - 1.30 mg/dL LAB CHEMISTRY METHOD 02/11/2025 3:57 PM [facility] eGFR 75 >=60 mL/min/1. 73m2 LAB CHEMISTRY METHOD 02/11/2025 3:57 PM [facility] Comment:Calculation based on the Chronic Kidney Disease Epidemiology Collaboration (CKD-EPI) equation refit without adjustment for race. BUN/Creatinine Ratio 12.8 LAB CHEMISTRY METHOD 02/11/2025 3:57 PM [facility] Calcium 9.1 8.5 - 10.5 mg/dL LAB CHEMISTRY METHOD 02/11/2025 3:[address] [facility] AST (SGOT) 20 10 - 42 unit/L LAB CHEMISTRY METHOD 02/11/2025 3:[address] [facility] ALT (SGPT) 42 10 - 60 unit/L LAB CHEMISTRY METHOD 02/11/2025 3:[address] [facility] Alkaline Phosphatase 124(H) 42 - 121 unit/L LAB CHEMISTRY METHOD 02/11/2025 3:[address] [facility] Total Protein 6.7 6.0 - 8.0 g/dL LAB CHEMISTRY METHOD 02/11/2025 3:[address] [facility] Albumin 3.2 3.2 - 5.0 g/dL LAB CHEMISTRY METHOD 02/11/2025 3:[address] [facility] Total Bilirubin 0.3 0.0 - 1.4 mg/dL LAB CHEMISTRY METHOD 02/11/2025 3:[address] [facility] Blood Venous blood specimen / Unknown Venipuncture / Unknown 02/11/2025 11:48 AM EDT 02/11/2025 2:42 PM EDT Shweta Tim MD LAB BLOOD ORDERABLES Final Resul t [facility] [address] [place] [address], [place] [phone] * POC glucose manually resulted (01/14/2025 11:05 AM EDT) Only the most recent of2 resultswithin the time period is included. Glucose POC 458 mg/dL Blood Capillary blood specimen / Unknown 01/14/2025 11:05 AM EDT Diana Oseguera MD POINT OF CARE TEST ENTER/EDIT OR DERABLES Final Result * ECG 12 lead (12/28/2024 1:49 PM EDT) Narrative Diana Oseguera MD - 12/28/2024 1:49 PM EDT EKG in my office showed a normal sinus rhythm and nonspecific ST-T changes. I will obtain EKG with recent ER visit, and compared the tracing, there is no acute ischemic changes. Formal EKG reading by cardiology still pending. us Diana Oseguera MD ECG ORDERABLES Edited Result - Final * (ABNORMAL) Lipid panel with reflex to direct LDL (12/24/2024 9:15 AM EDT) Cholesterol 193 0 - 200 mg/dL LAB CHEMISTRY METHOD 12/24/2024 1:[address] [facility] Triglycerides 242(H) 0 - 150 mg/dL LAB CHEMISTRY METHOD 12/24/2024 1:05 PM [facility] HDL 37(L) >=40 mg/dL LAB CHEMISTRY METHOD 12/24/2024 1:[address] [facility] LDL Calculated 108(H) 0 - 100 mg/dL LAB CHEMISTRY METHOD 12/24/2024 1:[address] [facility] VLDL Cholesterol Diomedes 48.4 mg/dL LAB CHEMISTRY METHOD 12/24/2024 1:[address] [facility] Non HDL Chol. (LDL+VLDL) 156(H) <145 mg/dL LAB CHEMISTRY METHOD 12/24/2024 1:[address] [facility] Chol/HDL Ratio 5.2(H) 0.0 - 4.4 LAB CHEMISTRY METHOD 12/24/2024 1:05 PM [facility] Blood Venous blood specimen / Unknown Venipuncture / Unknown 12/24/2024 9:15 AM EDT 12/24/2024 9:15 AM EDT us Diana Oseguera MD LAB BLOOD ORDERABLES Final Resul t [facility] [address] [place] [address], [place] [phone] * Microalbumin creatinine urine ratio (12/24/2024 9:15 AM EDT) Creatinine, Urine 141.0 mg/dL LAB CHEMISTRY METHOD 12/24/2024 11:[address] [facility] Microalb, Ur 23.5 0.0 - 29.0 mg/L LAB CHEMISTRY METHOD 12/24/2024 11:[address] [facility] Microalb/Creat Ratio 17 <30 mg/g creat LAB CHEMISTRY METHOD 12/24/2024 11:[address] [facility] Urine Urine specimen obtained by clean catch procedure / Unknown Non-blood Collection / Unknown 12/24/2024 9:15 AM EDT 12/24/2024 9:15 AM EDT us Diana Oseguera MD LAB URINE ORDERABLES Final Resul t Performing Organization Address [facility] de Phone Number [facility] [address] [place] [address], [place] [phone] * (ABNORMAL) Hemoglobin A1c (12/24/2024 9:15 AM EDT) Hemoglobin A1C 11.9(H) <6.5 % LAB CHEMISTRY METHOD 12/24/2024 1:[address] [facility] Mean Bld Glu Estim. 295 mg/dL LAB CHEMISTRY METHOD 12/24/2024 1:[address] [facility] Blood Venous blood specimen / Unknown Venipuncture / Unknown 12/24/2024 9:15 AM EDT 12/24/2024 9:15 AM EDT us Diana Oseguera MD LAB BLOOD ORDERABLES Final Resul t Performing Organization Address [facility] Co de Phone Number [facility] [address] [place] [address], * Diabetes Foot Exam (10/07/2023) Pathologist [facility] Diabetes: Annual Foot Exam abstracted us Historical Provider MD HEALTH MAINTENANCE Final Result * CT LUNG SCREENING LOW DOSE (08/05/2022 12:47 PM EST) Anatomical Region Laterality Modality Computed Tomogra phy 08/04/2022 7:43 AM EST Narrative 08/05/2022 12:47 PM EST [facility] Diagnostic Imaging Department [address] [place] [address] Patient: TAMMY MENDOZAO.B./Age/Sex: 1960 - 62 - M Unit#: [id number] [facility]/Ordering Site: [facility] Ordering Physician: ALDO HERRING MD CT Lung Screening Low Dose - 08/04/2286 History: 62 year-old 78 pack-year former smoker, asymptomatic, for lung cancer screening. Quit smoking 3 years ago. Mother had lung carcinoma. Personal history of colon carcinoma. Comparison: 07/24/21 Technique: Helical volumetric imaging of the thorax was performed, using low- dose technique, without IV contrast. DLP: 158.31 mGy/cm CTDIvol: 4.83 mGy SPO VCT Iterative reconstruction technique Findings: Lungs and [...] (metastatic disease from known colon malignancy suspected) [id number] [id number] G9557 [id number] Dictating Physician: HOLLY HERRERA MD Electronically Signed by: HOLLY HERRERA MD Dic Date/Time: 08/05/22 1229 Sign date/Time: 08/05/22 1247 Procedure Note Holly Herrera MD - 07/26/2023 [facility] Diagnostic Imaging Department [address] [place] [address] [id number] Patient: TAMMY MENDOZA./Age/Sex: 1960 - 62 - M Unit#: [id number] Location/Status: [facility]/REG CLI Mnemonic/Ordering Site: [facility] Ordering Physician: ALDO HERRING MD CT Lung Screening Low Dose - 08/04/22 - 0747 History: 62 year-old 78 pack-year former smoker, asymptomatic, for lungcancer screening. Quit smoking 3 years ago. Mother had lung carcinoma. Personalhistory of colon carcinoma. Comparison: 07/24/21 Technique: Helical volumetric imaging of the thorax was performed, usinglow- dose technique, without IV contrast. DLP: 158.31 mGy/cm CTDIvol: 4.83 mGy SPO VCT Iterative reconstruction technique Findings: Lungs and [...] (metastatic disease from known colon malignancy suspected) [id number] [id number] G9557 G9551 Dictating Physician: HOLLY HERRERA [...] to Subscriber:Self Name:Tammy Mendoza Payer ID:[id number] Group ID:[id number] Type:Not on file Address: [place] [address] [place] [id number] Advance Directives * Full Code - Default (Latest Code Status on File) Date Activated Date Inactivated Comments 10/10/2024 1:24 PM 10/11/2024 2:20 PM This is orde r is used when code status has not been discussed with the patient, or code status is otherwise unknown/unconfirmed To update the patient's code status, place a code status order. Do not modify or discontinue any currently active code status orders. Care Teams Registered Nurse Relationship Specialty Start Date End Date Diana Oseguera MD [address] [place] [id number] PCP - General Internal Medicine 12/27/14
--- OUTSIDE RECORDS SUMMARY | 2025-03-15 13:58 | XMS_ITS ---
Author Organization [facility] Address [address] [place] [address] Phone Care Team Providers Care Customer Associate Name Role Phone Diana Oseguera MD Primary Care Provider High Risk Care Management Status:Identified (Enrolling) Start date:03/04/2025 Enrollment reason:Identified as high-risk Case Team Name Relationship Phone Rica Colin RN Care Manager(Responsible Staff) Continued Care and Services Coordination
--- OUTSIDE RECORDS SUMMARY | 2025-03-15 13:58 | XMS_ITS | Encounter Summary ---
Author Organization [facility] Address [address] [place] [address] Care Team Providers Care Training Analyst Name Role Phone Diana Oseguera MD Primary Care Provider [phone] Encounter Details Date Type Department Care Team Description 02/13/2023 Social Work [facility] Oncology Services [address] [place] [address] Casimiro Mack, [facility] Social History Tobacco Use Types Packs/Day Years [...] on filedocumented in this encounter Care Teams Training Analyst Relationship Specialty Start Date End Date Diana Oseguera MD PCP - General Internal Medicine 06/08/16 documented as of this encounter
--- OUTSIDE RECORDS SUMMARY | 2025-03-15 13:59 | XMS_ITS | Encounter Summary ---
Author Organization [facility] Address [address] [place] [address] Care Team Providers Care Help Desk Representative Name Role Phone Diana Oseguera MD Primary Care Provider [phone] Encounter Details Date Type Department Care Team Description 08/14/2022 Social Work [facility] Oncology Services [address] [place] [address] Casimiro Mack, [facility] [place] [place] Social History Tobacco Use Types Packs/Day Years [...] on filedocumented in this encounter Care Teams Help Desk Representative Relationship Specialty Start Date End Date Diana Oseguera MD PCP - General Internal Medicine 06/08/16 documented as of this encounter
--- OUTSIDE RECORDS SUMMARY | 2025-03-15 13:59 | XMS_ITS | Clinical Summary ---
Author Organization [facility] Address [address] [place] [address] Care Team Providers Care Property Claims Manager Name Role Phone Diana Oseguera MD Primary Care Provider [phone] Allergies Active Allergy Reactions Criticality Noted Date [...] 80 03/24/2024 11:16 AM EDT Temperature 36.7 C (98 F) 03/24/2024 11:16 AM EDT Respiratory Rate 18 [...] (2 of 2 - PCV) 08/18/2013 08/18/2012 Fall Risk Assessment 02/08/2025 COVID-19 Vaccine (4 - 2024-2 6 season) 2025 11/15/2020, 10/25/2020, 09/15/2020 Influenza Vaccine (#1) 2025 1, 03/25/2009 RSV Adult > 60+ Yrs or (1 - 1-dose 75+ series) 02/08/2035 Hepatitis B Vaccines Aged Out No long er eligible based on patient's age to complete this topic RSV Ped < 20 months Aged Out No longe r eligible based on patient's age to complete this topic Care Teams Property Claims Manager Relationship Specialty Start Date End Date Diana Oseguera MD PCP - General Internal Medicine 06/08/16
--- OUTSIDE RECORDS SUMMARY | 2025-03-15 13:59 | XMS_ITS | Encounter Summary ---
Author Organization [facility] Address [address] [place] [address] Care Team Providers Care Basket Person Name Role Phone Diana Oseguera MD Primary Care Provider [phone] Encounter Details Date Type Department Care Team Description 08/14/2022 Social Work [facility] Oncology Services [address] [place] [address] Casimiro Mack, [facility] [place] [facility] [place] Social History Tobacco Use Types Packs/Day [...] on filedocumented in this encounter Care Teams Basket Person Relationship Specialty Start Date End Date Diana Oseguera MD PCP - General Internal Medicine 06/08/16 documented as of this encounter
--- OUTSIDE RECORDS SUMMARY | 2025-03-15 13:59 | XMS_ITS | Encounter Summary ---
Author Organization [facility] Address [address] [place] [address] Care Team Providers Care Intensive Care Anaesthetist Name Role Phone Diana Oseguera MD Primary Care Provider [phone] Encounter Details Date Type Department Care Team Description 08/30/2022 Social Work [facility] Oncology Services [address] [place] [address] Casimiro Mack, [facility] Social History Tobacco Use Types Packs/Day Years [...] on filedocumented in this encounter Care Teams Intensive Care Anaesthetist Relationship Specialty Start Date End Date Diana Oseguera MD PCP - General Internal Medicine 06/08/16 documented as of this encounter
--- OUTSIDE RECORDS SUMMARY | 2025-03-15 13:59 | XMS_ITS | Encounter Summary ---
[facility] Organization [facility] Address [address] [place] [address] Care Team Providers Care Homoeopath Name Role Phone Diana Oseguera MD Primary Care Provider [phone] Encounter Details Date Type Department Care Team Description 01/24/2024 Social Work [facility] Oncology Services [address] [place] [address] Casimiro Mack, [facility] [...] on filedocumented in this encounter Care Teams Homoeopath Relationship Specialty Start Date End Date Diana Oseguera MD PCP - General Internal Medicine 06/08/16 documented as of this encounter
--- OUTSIDE RECORDS SUMMARY | 2025-03-15 13:59 | XMS_ITS | Encounter Summary ---
Author Organization [facility] Address [address] [place] [address] Care Team Providers Care Terra Cotta Roofer Name Role Phone Diana Oseguera MD Primary Care Provider [phone] Encounter Details Date Type Department Care Team Description 03/28/[address] [facility] Oncology Services [address] [place] [address] Casimiro Mack, [facility] Social History Tobacco Use Types Packs/Day Years [...] on filedocumented in this encounter Care Teams Terra Cotta Roofer Relationship Specialty Start Date End Date Diana Oseguera MD PCP - General Internal Medicine 06/08/16 documented as of this encounter
--- OUTSIDE RECORDS SUMMARY | 2025-03-15 13:59 | XMS_ITS | Encounter Summary ---
Author Organization [facility] Address [address] [place] [address] Care Team Providers Care Drywall Applicator Name Role Phone Diana Oseguera MD Primary Care Provider [phone] Encounter Details Date Type Department Care Team Description 08/27/2022 Social Work [facility] Oncology Services [address] [place] [address] Casimiro Mack, [facility] Social History Tobacco Use Types [...] on filedocumented in this encounter Care Teams Drywall Applicator Relationship Specialty Start Date End Date Diana Oseguera MD PCP - General Internal Medicine 06/08/16 documented as of this encounter
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
--- OUTSIDE RECORDS SUMMARY | 2025-03-15 13:59 | XMS_ITS ---
Author Organization [facility] Address [address] [place] [address] Care Team Providers Care Flyer Repairer Name Role Phone Diana Oseguera MD Primary Care Provider [phone] Active Problems Problem Noted Date Diagnosed Date [...] treatments are documented for this patient in [facility]. Treatments may have been administered in another system.
--- OUTSIDE RECORDS SUMMARY | 2025-03-15 13:59 | XMS_ITS | Encounter Summary ---
[facility] Address [address] [place] [address] Care Team Providers Care Golf Player Assistant Name Role Phone Diana Oseguera MD Primary Care Provider [phone] Encounter Details Date Type Department Care Team Description 04/10/2024 Social Work [facility] Oncology Services [address] [place] [address] Casimiro Mack, [facility] Social History Tobacco Use Types Packs/Day Years [...] on filedocumented in this encounter Care Teams Golf Player Assistant Relationship Specialty Start Date End Date Diana Oseguera MD PCP - General Internal Medicine 06/08/16 documented as of this encounter
--- OUTSIDE RECORDS SUMMARY | 2025-03-15 13:59 | XMS_ITS | Encounter Summary ---
Author Organization [facility] Address [address] [place] [address] Care Team Providers Care Legal Cashier Name Role Phone Diana Oseguera MD Primary Care Provider [phone] Encounter Details Date Type Department Care Team Description 04/10/2024 Social Work [facility] Oncology Services [address] [place] [address] Casimiro Mack, [facility] Social History Tobacco Use Types Packs/Day Years [...] filedocumented in this encounter Care Teams Legal Cashier Relationship Specialty Start Date End Date Diana Oseguera MD PCP - General Internal Medicine 06/08/16 documented as of this encounter
== END 2025-03-15 12:14 | disposition home or self-care (01) ==
LOC: HO.HSMS 11:18
PROVIDERS: PCP Internal Medicine; Visit Provider Nurse Practitioner Family
DX: S06.0X1A Concussion with loss of consciousness of 30 minutes or less, initial encounter (principal); R42 Dizziness and giddiness; G44.329 Chronic post-traumatic headache, not intractable; G47.01 Insomnia due to medical condition; H02.402 Unspecified ptosis of left eyelid; R20.2 Paresthesia of skin; F41.9 Anxiety disorder, unspecified; F32.A Depression, unspecified
CPT/HCPCS: 99214

== ENCOUNTER → 2025-03-15 11:18 | Outpatient (BNVA) | payer MEDICARE, SELFPAY | PROVIDERS: PCP Internal Medicine; Visit Provider Nurse Practitioner Family | DX: R42 Dizziness and giddiness (principal); G44.329 Chronic post-traumatic headache, not intractable; G47.01 Insomnia due to medical condition; H02.402 Unspecified ptosis of left eyelid; R20.2 Paresthesia of skin; F41.9 Anxiety disorder, unspecified; F32.A Depression, unspecified; S06.0X1A Concussion with loss of consciousness of 30 minutes or less, initial encounter | CPT/HCPCS: 99212 ==